=== PATIENT | male | born 1955 | race Caucasian/White ===

== ENCOUNTER 2022-03-20 13:46 | Inpatient (IN) | payer MEDICARE ==
[2022-03-20] MEDS ORDERED: SODIUM CHLORIDE 0.9% 1,000 ML IV ONE (13:50)
[2022-03-20] MEDS ORDERED: NOREPINEPHRINE 4 MG in SODIUM CHLORIDE 0.9% 250 ML IV ONE (13:52)
[2022-03-20] MEDS ORDERED: fentaNYL (PF) 50 MCG/ML 2 ML AMP ONE (14:00)
[2022-03-20] MEDS ORDERED: HEPARIN SODIUM 1,000 UN/ML (10ML VL) ONE ×2 (14:00→15:48)
[2022-03-20] MEDS ORDERED: LIDOCAINE 1% INJ 10MG/ML (30 ML VIAL-PF) SQ ONE (14:03)
[2022-03-20] MEDS ORDERED: TICAGRELOR 90 MG TAB ONE (14:12)
[2022-03-20] MEDS: HEPARIN SODIUM 1,000 UN/ML (10ML VL) IV ONE ×3 (14:12→15:39)
[2022-03-20] MEDS ORDERED: TICAGRELOR 90 MG TAB PO ONE (14:13)
[2022-03-20] MEDS ORDERED: ETOMIDATE 2 MG/ML 10 ML VIAL ONE (14:21)
--- NOTE | 2022-03-20 14:29 | P.CRDCN ---
History of Present Illness History of present illness: HISTORY OF PRESENTING ILLNESS This is a pleasant 66-year-old male past medical history of hypertension, hyperlipidemia, diabetes. No known past cardiac history. Patient was brought to the hospital via EMS for complaints of weakness and chest pain. Initial EKG concerning for STEMI and patient was brought to the ER. Initial EKG revealed sinus rhythm HR 78, right bundle branch block, ST elevation in lead V3-V5, ST depression inferiorly Repeat EKG timed 10 minutes later with improved ST e levation in the anterior leads. Patient by-passed the ER on this evaluation and was taken directly to the label fuser tender and was unable to evaluate patient. Patient was seen being prepped in the label fuser tender. He is awake, alert and oriented. He is hypotensive, Levo was started. No labs to review. Patient did state he took his lisinopril this morning, but not another medication. REVIEW OF SYSTEMS At the time of my exam: Unable to perform thorough review of systems secondary to patient taken to label fuser tender. CARDIOVASCULAR: +Chest pain, +shortness of breath, PHYSICAL EXAMINATION: Unable to perform thorough physical exam secondary to patient taken to label fuser tender. ASSESSMENT STEMI Cardiogenic shock Hypotension History of hypertension History of hyperlipidemia History of diabetes mellitus PLAN Patient immediately taken to label fuser tender from ER Plan for cardiac catheterization Further recommendations to follow Nurse practitioner note has been reviewed by physician. Signing provider agrees with the documented findings, assessment, and plan of care. Medications and Allergies Home Medications Medication Instructions Recorded Confirmed Type Aspirin EC [Ecotrin Low Dose] 81 mg PO W/SUPPER 03/20/22 03/20/22 History Cholecalciferol [Vitamin D3 (25 50 mcg PO W/BRKFST 03/20/22 03/20/22 History Mcg = 1000 Iu)] Esomeprazole Magnesium [NexIUM 20 mg PO W/BRKFST 03/20/22 03/20/22 History 24Hr] Metoprolol Succinate [Toprol XL] 50 mg PO W/BRKFST 03/20/22 03/20/22 History Multivitamins, Thera [Multivitamin 1 tab PO W/SUPPER 03/20/22 03/20/22 History (formulary)] NIFEdipine [NIFEdipine ER] 30 mg PO W/BRKFST 03/20/22 03/20/22 History Rosuvastatin Calcium [Crestor] 40 mg PO W/SUPPER 03/20/22 03/20/22 History lisinopriL [Prinivil] 20 mg PO BID-W/MEALS 03/20/22 03/20/22 History metFORMIN HCL [Glucophage] 500 mg PO W/BRKFST 03/20/22 03/20/22 History Allergies Allergy/AdvReac Type Severity Reaction Status Date / Time No Known Allergies Allergy Verified 03/20/22 14:47 Results 03/21/22 04:46 03/21/22 08:25
[2022-03-20] MEDS ORDERED: MIDAZOLAM 2 MG/2 ML VIAL IVP ONE (14:45)
[2022-03-20] MEDS ORDERED: IOPAMIDOL-370 125ML BTL INJ ONE ×2 (14:52→16:01)
[2022-03-20 15:06] LABS: Allen Test Performed? Yes
[2022-03-20 15:09] LABS: ABG Base Excess -10.2 mmol/L; ABG HCO3 19 mmol/L (21-25); ABG Oxygen Saturation 78.1 % (94-97); ABG PCO2 57 mmHg (35-45); ABG TCO2 21 mmol/L (19-24)
[2022-03-20 15:16] LABS: ABG PH 7.13 (7.35-7.45)
[2022-03-20 15:17] LABS: ABG PO2 57 mmHg (83-108)
[2022-03-20] MEDS ORDERED: IOPAMIDOL-370 100ML BTL INJ ONE (15:32)
[2022-03-20] MEDS ORDERED: HEPARIN SODIUM 1,000 UN/ML (10ML VL) IV ONE (15:50)
[2022-03-20 15:58] LABS: Basophils # (A) 0.1 k/uL (0-0.2); Basophils % (A) 0 %; Eosinophils # (A) 0.1 k/uL (0-0.7); Eosinophils % (A) 1 %; HGB 15.2 gm/dL (13.0-17.5); Lymphocytes # (A) 1.5 k/uL (1.0-4.8); Lymphocytes % (A) 7 %; MCH 32.4 pg (25.0-35.0); MCHC 33.8 g/dL (31.0-37.0); MCV 95.8 fL (80.0-100.0); Mean Platelet Volume 7.3; Monocytes # (A) 0.4 k/uL (0-1.0); Monocytes % (A) 2 %; Neutrophils # (A) 18.4 k/uL (1.3-7.7); Neutrophils % (A) 90 %; Platelet Count 299 k/uL (150-450); RDW 13.3 % (11.5-15.5); WBC 20.4 k/uL (3.8-10.6)
[2022-03-20] MEDS ORDERED: RX INFO: IV CONTRAST WAS GIVEN 1 EACH MISC MISCELLANE PRN (16:50)
[2022-03-20] MEDS ORDERED: ATROPINE SULFATE 0.1 MG/ML 10ML SYRINGE IV PRN (16:50)
[2022-03-20] MEDS ORDERED: ZOLPIDEM 5 MG TAB PO PRN (16:50)
[2022-03-20] MEDS ORDERED: NITROGLYCERIN SL TABS 0.4 MG TAB SUBLINGUAL PRN (16:50)
[2022-03-20] MEDS ORDERED: MAG HYDROX/AL HYDROX/SIMETH 30 ML CUP PO PRN (16:50)
[2022-03-20 16:52] LABS: Glucose,Whole Blood 179 mg/dL (70-110)
[2022-03-20] MEDS ORDERED: SODIUM CHLORIDE 0.9% 1,000 ML in EMPTY BAG 1 BAG IV SCH (17:00)
[2022-03-20] MEDS: NOREPINEPHRINE 4 MG in SODIUM CHLORIDE 0.9% 250 ML IV SCH ×2 (17:00→18:18)
[2022-03-20] MEDS ORDERED: HEPARIN SODIUM 1,000 UN/ML (10ML VL) IV PRN (17:01)
[2022-03-20] MEDS ORDERED: HEPARIN SOD,PORK IN 0.45% NACL 25,000 UNIT in 0.45% NACL 1 250ML.BAG IV SCH (18:00)
[2022-03-20 18:03] LABS: ABG Base Excess -7.3 mmol/L; ABG HCO3 19 mmol/L (21-25); ABG Oxygen Saturation 98.8 % (94-97); ABG PCO2 35 mmHg (35-45); ABG PH 7.33 (7.35-7.45); ABG PO2 126 mmHg (83-108); ABG TCO2 20 mmol/L (19-24); Allen Test Performed? Yes
--- NOTE | 2022-03-20 18:05 | XR ---
EXAMINATION: XR chest 1V portable DATE AND TIME: 03/20/2022 5:35 PM CLINICAL INDICATION: Tube placement TECHNIQUE: AP portable supine COMPARISON: None FINDINGS: ET tube tip superimposed over the trachea at the level of the inferior margin of the sterno clavicular joints. Catheter noted superimposed over the aorta and heart. EKG leads. Right hemithorax: There is diffuse added opacity over the right upper and midlung zones with relative sparing of the right lower lobe. The right pleural space appears negative on this supine radiograph. Left hemithorax: There is relatively mild left perihilar added opacity. The left upper and mid and lo wer lung zones appear to be otherwise clear. The left pleural space appears negative on this supine r adiograph. The ascending is midline. The cardiac silhouette is not enlarged. The remainder of the mediastinal si lhouette is unremarkable. The skeletal structures and soft tissues are negative for acute findings. IMPRESSION: Right upper and mid lung zone airspace filling process, with mild left perihilar added opacity seen a s well.
[2022-03-20 18:11] LABS: Basophils % (A) 0 %; Eosinophils # (A) 0.1 k/uL (0-0.7); Eosinophils % (A) 1 %; HCT 47.2 % (39.0-53.0); HGB 16.1 gm/dL (13.0-17.5); Lymphocytes # (A) 1.1 k/uL (1.0-4.8); Lymphocytes % (A) 14 %; MCH 32.5 pg (25.0-35.0); MCHC 34.1 g/dL (31.0-37.0); MCV 95.3 fL (80.0-100.0); Mean Platelet Volume 7.1; Monocytes # (A) 0.1 k/uL (0-1.0); Monocytes % (A) 2 %; Neutrophils # (A) 6.8 k/uL (1.3-7.7); Neutrophils % (A) 83 %; Platelet Count 303 k/uL (150-450); RBC 4.95 m/uL (4.30-5.90); RDW 13.4 % (11.5-15.5); WBC 8.1 k/uL (3.8-10.6)
[2022-03-20] MEDS ORDERED: CISATRACURIUM 2 MG/ML 5 ML VIAL IV ONE (18:45)
[2022-03-20 18:54] LABS: Partial Thromboplastin Time 102.6 sec (22.0-30.0)
[2022-03-20] MEDS: HEPARIN SODIUM,PORCINE 12,500 UNIT in DEXTROSE 5% IN WATER 500 ML IV SCH ×2 (18:58)
[2022-03-20] MEDS ORDERED: HYDROmorphone 1 MG/ML 1 ML SYRINGE IVP PRN (18:59)
[2022-03-20] MEDS ORDERED: HYDROmorphone 1 MG/ML 1 ML SYRINGE IVP SCH (19:00)
[2022-03-20] MEDS: CISATRACURIUM 200 MG in SODIUM CHLORIDE 0.9% 180 ML IV SCH (19:30)
[2022-03-20 20:39] LABS: ABG Base Excess -15.6 mmol/L; ABG HCO3 12 mmol/L (21-25); ABG Oxygen Saturation 95.2 % (94-97); ABG PCO2 28 mmHg (35-45); ABG PH 7.23 (7.35-7.45); ABG PO2 84 mmHg (83-108); ABG TCO2 13 mmol/L (19-24); Allen Test Performed? Yes
[2022-03-20 20:46] LABS: Albumin 2.6 g/dL (3.5-5.0); Calcium 6.9 mg/dL (8.4-10.2); Magnesium 1.6 mg/dL (1.6-2.3); Potassium 5.1 mmol/L (3.5-5.1); Total Bilirubin 1.2 mg/dL (0.2-1.3); Total Protein 5.1 g/dL (6.3-8.2)
[2022-03-20] MEDS: DEXTROSE 5% IN WATER 1,000 ML with SODIUM BICARB (1 MEQ/ML) 100 ML IV SCH (21:19)
[2022-03-20] MEDS: ARTIFICIAL TEARS-HYPROMELLOSE DROPS 15 ML BTL BOTH EYES SCH (22:01)
[2022-03-20] MEDS: FUROSEMIDE 10 MG/ML 2 ML VIAL IV SCH (22:02)
[2022-03-20] MEDS: TICAGRELOR 90 MG TAB PO SCH (22:02)
[2022-03-20] MEDS: CHLORHEXIDINE GLUCONATE 15 ML CUP MUCOUS MEM SCH (22:02)
[2022-03-20] MEDS: ATORVASTATIN 80 MG TAB PO SCH (22:02)
[2022-03-20 22:17] LABS: HCT 41.8 % (39.0-53.0); HGB 13.6 gm/dL (13.0-17.5); MCH 31.4 pg (25.0-35.0); MCHC 32.6 g/dL (31.0-37.0); MCV 96.3 fL (80.0-100.0); Mean Platelet Volume 7.9; Platelet Count 286 k/uL (150-450); RBC 4.35 m/uL (4.30-5.90); RDW 13.1 % (11.5-15.5); WBC 12.9 k/uL (3.8-10.6)
[2022-03-20] MEDS ORDERED: DOBUTamine DRIP 500 MG in DEXTROSE/WATER 1 250ML.BAG IV SCH (22:30)
[2022-03-20] MEDS ORDERED: SODIUM CHLORIDE 0.9% 500 ML 500 ML IV ONE (22:48)
[2022-03-21] MEDS: ARTIFICIAL TEARS-HYPROMELLOSE DROPS 15 ML BTL BOTH EYES SCH ×6 (00:35→20:51)
[2022-03-21] MEDS: NOREPINEPHRINE 4 MG in SODIUM CHLORIDE 0.9% 250 ML IV SCH ×2 (05:00→08:46)
[2022-03-21 05:20] LABS: Calcium 7.4 mg/dL (8.4-10.2); Potassium 4.5 mmol/L (3.5-5.1)
[2022-03-21 05:52] LABS: ABG Base Excess -3.9 mmol/L; ABG HCO3 22 mmol/L (21-25); ABG Oxygen Saturation 97.7 % (94-97); ABG PCO2 39 mmHg (35-45); ABG PH 7.35 (7.35-7.45); ABG PO2 94 mmHg (83-108); ABG TCO2 23 mmol/L (19-24); Allen Test Performed? Yes
[2022-03-21 05:54] LABS: Basophils % (A) 0 %; Eosinophils % (A) 0 %; HCT 43.5 % (39.0-53.0); HGB 13.9 gm/dL (13.0-17.5); Lymphocytes # (A) 0.9 k/uL (1.0-4.8); Lymphocytes % (A) 5 %; MCH 30.9 pg (25.0-35.0); MCHC 32.1 g/dL (31.0-37.0); MCV 96.6 fL (80.0-100.0); Mean Platelet Volume 7.5; Monocytes # (A) 0.8 k/uL (0-1.0); Monocytes % (A) 4 %; Neutrophils # (A) 17.8 k/uL (1.3-7.7); Neutrophils % (A) 91 %; Platelet Count 246 k/uL (150-450); RBC 4.51 m/uL (4.30-5.90); RDW 13.3 % (11.5-15.5); WBC 19.5 k/uL (3.8-10.6)
--- NOTE | 2022-03-21 07:56 | XR ---
EXAMINATION TYPE: XR chest 1V portable DATE OF EXAM: 03/21/2022 COMPARISON: Chest x-ray 03/20/2022 HISTORY: Left ventricular assist device placement, intubated TECHNIQUE: Single frontal view of the chest is obtained. FINDINGS: Endotracheal tube and NG tube are overlying appropriate positions. Left ventricular assist device is in a stable position. There is no evident pneumothorax or pleural effusion. Bilateral grou ndglass opacity persists but may be improved in the interval. There are overlying artifacts present. Cardiac mediastinal silhouette shows a similar appearance. The aorta is dense. IMPRESSION: Pulmonary edema may be improved.
[2022-03-21] MEDS ORDERED: IPRATROPIUM-ALBUTEROL 3 ML NEB INHALATION PRN (08:37)
[2022-03-21] MEDS: TICAGRELOR 90 MG TAB PO SCH ×2 (08:49→20:53)
[2022-03-21] MEDS: FUROSEMIDE 10 MG/ML 2 ML VIAL IV SCH (08:49)
[2022-03-21] MEDS: CHLORHEXIDINE GLUCONATE 15 ML CUP MUCOUS MEM SCH ×2 (08:49→20:51)
[2022-03-21] MEDS ORDERED: ASPIRIN 81 MG PO SCH (09:00)
[2022-03-21 09:13] LABS: Magnesium 1.6 mg/dL (1.6-2.3)
[2022-03-21 09:23] VITALS: RESP 20
[2022-03-21] MEDS ORDERED: Magnesium Replacement Protocol 1 EACH MISC MISCELLANE PRN (09:25)
--- NOTE | 2022-03-21 09:26 | XR ---
EXAMINATION TYPE: XR chest 1V DATE OF EXAM: 03/21/2022 COMPARISON: 03/21/2022 INDICATION: Line placement TECHNIQUE: Single frontal view of the chest is obtained. FINDINGS: The heart size is normal. The pulmonary vasculature is indistinct. Mild diffuse increased lung markings are present bilaterally. This is nonspecific. Consider pulmonary edema in the differential. Endotracheal tube tip is above the rikki. Nasogastric tube transverse the thorax. Left central venou s catheter is in place tip in the superior vena cava region. No large pneumothorax is evident. Pneumo thorax evaluation however is limited supine view. IMPRESSION: 1. Diffuse increased lung markings. Differential includes infectious etiology or pulmonary edema. Fol low-up is recommended. 2. Multiple lines and catheters discussed above. 3. Please minimal left central venous catheter. No pneumothorax on the limited position chest x-ray
[2022-03-21] MEDS: MAGNESIUM SULFATE-D5W PMX 1 GM in DEXTROSE/WATER 1 100ML.BAG IVPB SCH ×2 (10:00→11:23)
--- NOTE | 2022-03-21 10:21 | P.CNPUL ---
History of Present Illness Consult date: 03/21/22 Requesting physician: Arlette Pool Reason for consult: other (Ventilator/critical care management) Chief complaint: Chest pain and weakness History of present illness: This is a 66-year-old male patient with a history of hypertension, hyperlipidemia, diabetes mellitus, gastroesophageal reflux disease. He presented to the hospital yesterday via EMS with complaints of chest pain and weakness and was found to be in cardiogenic shock secondary to a ST segment elevation myocardial infarction. He was taken immediately to the [facility] he received 3 stents to the LAD and required Impala placement and intubation mechanical ventilatory support and transferred to the ICU for the same. His current vent settings are assist-control mode with a rate of 20, tidal volume 400, FiO2 50% and a PEEP of 10. Morning blood gases reveal a P O2 of 94, pCO2 39, pH 7.35. He is requiring norepinephrine at 11 mcg/m, dobutamine at 2.5 mcg/kg/m, Nimbex at 2 mg/kg/m, propofol 50 mcg/kg/m. He is on a heparin drip per weight-based protocol. He is on D5W with 2 A of sodium bicarb at 75 ML's per hour. Current blood pressure 107/76 with a mean of 84. Heart rate 114. Left radial arterial line in place. Impella flow at 2.2 L currently. White count 19.5. Hemoglobin 13.9. Platelets 246. Sodium 131. Potassium 4.5. Bicarb 19. BUN 21. Creatinine 1.26. Troponin 118. Echocardiogram pending. Chest x-ray reveals evidence of pulmonary edema. He is on DuoNeb inhalations. Continued on Brilinta and aspirin. Review of Systems ROS unobtainable: due to endotracheal tube Medications and Allergies Home Medications Medication Instructions Recorded Confirmed Type Aspirin EC [Ecotrin Low Dose] 81 mg PO W/SUPPER 03/20/22 03/20/22 History Cholecalciferol [Vitamin D3 (25 50 mcg PO W/BRKFST 03/20/22 03/20/22 History Mcg = 1000 Iu)] Esomeprazole Magnesium [NexIUM 20 mg PO W/BRKFST 03/20/22 03/20/22 History 24Hr] Metoprolol Succinate [Toprol XL] 50 mg PO W/BRKFST 03/20/22 03/20/22 History Multivitamins, Thera [Multivitamin 1 tab PO W/SUPPER 03/20/22 03/20/22 History (formulary)] NIFEdipine [NIFEdipine ER] 30 mg PO W/BRKFST 03/20/22 03/20/22 History Rosuvastatin Calcium [Crestor] 40 mg PO W/SUPPER 03/20/22 03/20/22 History lisinopriL [Prinivil] 20 mg PO BID-W/MEALS 03/20/22 03/20/22 History metFORMIN HCL [Glucophage] 500 mg PO W/BRKFST 03/20/22 03/20/22 History Allergies Allergy/AdvReac Type Severity Reaction Status Date / Time No Known Allergies Allergy Verified 03/20/22 14:47 Physical Exam Vitals: Vital Signs Temp Pulse Resp BP Pulse Ox FiO2 03/21/22 09:15 114 H 20 107/76 99 03/21/22 09:00 112 H 20 100/70 98 03/21/22 08:45 110 H 20 100/70 98 03/21/22 08:30 106 H 20 100/70 98 03/21/22 08:15 105 H 20 100/70 98 03/21/22 08:00 98.5 F 103 H 29 H 96/68 98 03/21/22 07:53 50 03/21/22 07:45 101 H 29 H 96/68 98 03/21/22 07:35 50 03/21/22 07:30 101 H 29 H 96/68 96 03/21/22 07:15 95 25 H 96/68 95 03/21/22 07:00 91 20 94 L 03/21/22 06:45 98 20 95 03/21/22 06:30 92 20 93 L 03/21/22 06:15 94 20 95/67 94 L 03/21/22 06:00 91 20 95 03/21/22 05:45 94 20 94 L 03/21/22 05:30 89 20 93 L 03/21/22 05:15 87 20 92 L 03/21/22 05:00 85 20 94 L 03/21/22 04:45 85 20 96 03/21/22 04:30 89 20 94 L 03/21/22 04:15 91 20 96/68 95 03/21/22 04:00 98.3 F 86 20 97 50 03/21/22 03:52 50 03/21/22 03:45 87 20 96 03/21/22 03:30 87 20 94 L 03/21/22 03:15 85 20 106/73 93 L 03/21/22 03:00 85 20 93 L 03/21/22 02:45 84 20 92 L 03/21/22 02:30 85 20 97 03/21/22 02:15 87 20 99/68 97 03/21/22 02:00 92 20 104/74 98 03/21/22 01:45 93 20 98 60 03/21/22 01:30 93 20 98 03/21/22 01:15 94 20 104/74 98 03/21/22 01:00 94 20 98 60 03/21/22 00:45 94 20 99 03/21/22 00:30 94 20 98 03/21/22 00:15 94 20 99 03/21/22 00:00 97.7 F 93 20 112/72 99 80 03/20/22 23:45 89 20 99 03/20/22 23:30 83 20 99 03/20/22 23:21 80 03/20/22 23:15 79 20 95 03/20/22 23:03 67 20 95 03/20/22 23:00 73 20 117/86 95 90 03/20/22 22:45 61 20 96 03/20/22 22:30 60 20 96 03/20/22 22:15 59 L 20 96 03/20/22 22:00 58 L 20 79/61 96 03/20/22 21:45 58 L 20 79/61 87 L 03/20/22 21:30 57 L 20 79/61 85 L 03/20/22 21:15 57 L 20 79/61 03/20/22 21:00 56 L 20 88/75 79 L 03/20/22 20:45 56 L 20 88/75 84 L 100 03/20/22 20:44 100 03/20/22 20:30 57 L 19 93 L 03/20/22 20:26 100 03/20/22 20:15 56 L 20 88/75 96 03/20/22 20:00 55 L 20 72/51 93 L 100 03/20/22 19:45 56 L 20 72/51 93 L 03/20/22 19:30 56 L 20 72/51 95 03/20/22 19:15 58 L 20 72/51 95 03/20/22 19:00 57 L 31 H 76/44 92 L 03/20/22 18:45 58 L 36 H 76/44 03/20/22 18:30 58 L 47 H 76/44 96 03/20/22 18:15 56 L 23 76/44 92 L 03/20/22 18:12 100 03/20/22 18:00 56 L 20 106/80 96 03/20/22 17:45 56 L 28 H 98/62 96 03/20/22 17:30 60 36 H 101/69 97 03/20/22 17:15 59 L 34 H 94/72 98 03/20/22 17:00 98.1 F 60 33 H 99/76 98 03/20/22 16:50 100 03/20/22 16:47 100 03/20/22 15:33 100 03/20/22 14:00 100 Intake and Output 03/20/22 03/21/22 03/21/22 22:59 06:59 14:59 Intake Total 848.191 971.889 588.869 Output Total 620 1325 355 Balance 228.191 -353.111 233.869 Intake: IV 625 600 300 Dextrose 5% in Water 1, 150 600 300 000 ml @ 75 mls/hr IV . [id number] [facility] with Sodium Bicarb (1 Meq/ml) 100 ml Rx#:[id number] Sodium Chloride 0.9% 1, 225 000 ml @ 0 mls/hr IV .STK -MED ONE Rx#:[id number] Sodium Chloride 0.9% 500 250 ml 500 ml @ 999 mls/hr IV .Q31M ONE Rx#:[id number] Intake, IV Titration 223.191 371.889 288.869 Amount Cisatracurium 200 mg In 65.412 Sodium Chloride 0.9% 180 ml @ 1 MCG/KG/MIN 5.117 mls/hr IV .Q24H [facility] Rx#: [id number] Heparin Sod,Pork in 0.45% 39.083 54.52 NaCl 25,000 unit In 0.45 % NaCl 1 250ml.bag @ Per Protocol IV .Q0M [facility] Rx#: [id number] Norepinephrine 4 mg In 123.191 135.591 73.427 Sodium Chloride 0.9% 250 ml @ 0.05 MCG/KG/MIN 16. 245 mls/hr IV .[id number] [facility] Rx#:[id number] propofoL 1,000 mg In 100 197.215 95.51 Empty Bag 1 bag @ 50 MCG/ KG/MIN 25.583 mls/hr IV . Q3H55M [facility] Rx#:[id number] Output: Gastric Drainage 400 Urine 620 925 355 Other: Voiding Method Indwelling Catheter Indwelling Catheter Weight 91 kg ABP, PAP, CO, CI - Last 8 Hours Arterial Blood Pressure 106/70 Arterial Blood Pressure 104/71 Arterial Blood Pressure 106/68 Arterial Blood Pressure 102/66 Arterial Blood Pressure 89/62 Arterial Blood Pressure 88/62 Arterial Blood Pressure 95/66 Arterial Blood Pressure 91/61 Arterial Blood Pressure 86/58 Arterial Blood Pressure 89/61 Arterial Blood Pressure 84/57 Arterial Blood Pressure 88/59 Arterial Blood Pressure 87/58 Arterial Blood Pressure 96/63 Arterial Blood Pressure 95/62 Arterial Blood Pressure 91/60 Arterial Blood Pressure 87/58 Arterial Blood Pressure 85/58 Arterial Blood Pressure 83/58 Arterial Blood Pressure 95/62 Arterial Blood Pressure 91/60 Arterial Blood Pressure 100/65 Arterial Blood Pressure 106/68 Arterial Blood Pressure 104/66 Arterial Blood Pressure 107/67 Arterial Blood Pressure 102/63 Arterial Blood Pressure 120/82 Arterial Blood Pressure 87/61 GENERAL EXAM: Intubated, paralyzed, 66-year-old male patient. HEAD: Normocephalic. EYES: Normal reaction of pupils, equal size. NOSE: Clear with pink turbinates. THROAT: Oral endotracheal and gastric tube secured in place. No erythema or exudates. NECK: Left IJ catheter in place. No masses, no JVD. CHEST: No chest wall deformity. LUNGS: Equal air entry with bilateral crackles. CVS: S1 and S2 normal with no audible murmur, regular rhythm. ABDOMEN: No hepatosplenomegaly, normal bowel sounds, no guarding or rigidity. SPINE: No scoliosis or deformity SKIN: No rashes CENTRAL NERVOUS SYSTEM: Sedated, paralyzed, tone is normal in all 4 extremities. EXTREMITIES: Impella and groin catheters in place. Left radial arterial line in place. There is no peripheral edema. No clubbing, no cyanosis. Peripheral pulses are faint but intact. Results - Laboratory Findings CBC and BMP: 03/21/22 04:46 03/21/22 08:25 ABG ABG pH 7.35 (7.35-7.45) 03/21/22 05:47 ABG pCO2 39 mmHg (35-45) 03/21/22 05:47 ABG pO2 94 mmHg (83-108) 03/21/22 05:47 ABG O2 Saturation 97.7 % (94-97) H 03/21/22 05:47 Abnormal lab findings: Abnormal Labs 03/20/22 03/20/22 03/20/22 14:55 15:50 16:50 WBC 20.4 H Neutrophils # 18.4 H Lymphocytes # APTT ABG pH 7.13 L* ABG pCO2 57 H ABG pO2 57 L* ABG HCO3 19 L ABG Total CO2 ABG O2 Saturation 78.1 L Sodium Carbon Dioxide BUN Creatinine Glucose POC Glucose (mg/dL) 179 H Calcium AST ALT Total Protein Albumin 03/20/22 03/20/22 03/20/22 17:56 18:07 20:08 WBC 12.9 H Neutrophils # Lymphocytes # APTT 102.6 H* ABG pH 7.33 L ABG pCO2 ABG pO2 126 H ABG HCO3 19 L ABG Total CO2 ABG O2 Saturation 98.8 H Sodium Carbon Dioxide BUN Creatinine Glucose POC Glucose (mg/dL) Calcium AST ALT Total Protein Albumin 03/20/22 03/20/22 03/20/22 20:12 20:19 20:36 WBC Neutrophils # Lymphocytes # APTT 50.4 H ABG pH 7.23 L ABG pCO2 28 L ABG pO2 ABG HCO3 12 L ABG Total CO2 13 L ABG O2 Saturation Sodium 132 L Carbon Dioxide 18 L BUN Creatinine Glucose 128 H POC Glucose (mg/dL) Calcium 6.9 L AST 672 H ALT 76 H Total Protein 5.1 L Albumin 2.6 L 03/21/22 03/21/22 03/21/22 00:00 04:46 04:46 WBC 19.5 H Neutrophils # 17.8 H Lymphocytes # 0.9 L APTT 76.8 H ABG pH ABG pCO2 ABG pO2 ABG HCO3 ABG Total CO2 ABG O2 Saturation Sodium 131 L Carbon Dioxide 19 L BUN 21 H Creatinine 1.26 H Glucose 239 H POC Glucose (mg/dL) Calcium 7.4 L AST ALT Total Protein Albumin 03/21/22 03/21/22 05:47 08:25 WBC Neutrophils # Lymphocytes # APTT 131.5 H* ABG pH ABG pCO2 ABG pO2 ABG HCO3 ABG Total CO2 ABG O2 Saturation 97.7 H Sodium Carbon Dioxide BUN Creatinine Glucose POC Glucose (mg/dL) Calcium AST ALT Total Protein Albumin - Diagnostic Findings Chest x-ray: image reviewed Assessment and Plan Assessment: Acute ST segment elevation myocardial infarction with significant coronary arter y disease, stent placement 3 to the LAD 03/20/2022 Acute cardiogenic shock secondary to above requiring intubation mechanical ventilation and Impella placement Leukocytosis suspect secondary to above Transaminitis secondary to above Diabetes mellitus Hyperlipidemia History of hypertension Plan: The patient was seen and evaluated Chest x-ray, ABGs, labs and medications reviewed Decrease FiO2 to 40% Left IJ triple lumen catheter placed Impella remains in place Patient's overall condition is quite critical Plan is for transfer to a tertiary care center, possibly [facility] We will continue to follow and make further recommendations based on his clinical status I have personally seen and examined the patient, performed the documentation and the assessment and plan as written. Number of minutes spent on the visit: 20.
--- NOTE | 2022-03-21 10:25 | CA ---
Transthoracic Echo Report Name: Rad Lozano Age: 66 Gender: M : 1955 Exam Date: 03/21/2022 07:38 Exam Location: [facility] Ht (in): 60 Wt (lb): 188 Ordering Physician: Gema Meadows Attending/Referring Phys: Work Over Rig Operator Lorraine Salcedo RDCS Procedure CPT: Indications: stemi Cardiac Hx: Pt had impella placed 03/20/22: Technical Quality: Fair Contrast 1: Total Dose (mL): Contrast 2: Total Dose (mL): MEASUREMENTS (Male / Female) Normal Values DOPPLER MV Area PHT 3.7 cm??? Mitral E Point Velocity 56.6 cm/s Mitral A Point Velocity 53.3 cm/s Mitral E to A Ratio 1.1 MV Deceleration Time 204.8 ms FINDINGS Left Ventricle Left ventricular ejection fraction is estimated at 50-55 %. Right Ventricle Right Atrium Left Atrium Mitral Valve Aortic Valve Tricuspid Valve Pulmonic Valve Pericardium Anterior moderate pericardial effusion. Aorta CONCLUSIONS 1. Left ventricle systolic function borderline normal, improved since March 20 2. A catheter is noted in the left ventricle, position could not be well assessed 3. Moderate anterior pericardial effusion with no evidence of temponade Previewed by: Dr. Arlette Pool MD (Electronically Signed) Final Date: 21 March 2022 10:25
[2022-03-21] MEDS: NOREPINEPHRINE 32 MG in SODIUM CHLORIDE 0.9% 218 ML IV SCH ×2 (10:47→19:10)
--- NOTE | 2022-03-21 10:57 | PCN ---
PROCEDURE NOTE PROCEDURE: Left internal jugular triple-lumen catheter. PREOPERATIVE DIAGNOSIS: Cardiogenic shock, administration of fluids and pressors, hypotension. POSTOPERATIVE DIAGNOSIS: Cardiogenic shock, administration of fluids and pressors, hypotension. OPERATORS: 1. Dr. Bazzi. 2. Dr. Coto. TRIPLE LUMEN CATHETER PLACEMENT: Indication: Hemodynamic monitoring/Intravenous access. A time-out was completed verifying correct patient, procedure, site, positioning, and implant(s) or special equipment if applicable. The patient was placed in a dependent position appropriate for triple lumen catheter placement based on the vein to be cannulated. The patient's left neck was prepped and draped in sterile fashion. 1% lidocaine was used to anesthetize the surrounding skin area. A triple lumen 9F Cordis catheter was introduced into the left internal jugular vein using Seldinger technique. The catheter was threaded smoothly over the guide wire and appropriate blood return was obtained. Each lumen of the catheter was evacuated of air and flushed with sterile saline. The catheter was then sutured in place to the skin and a sterile dressing applied. Perfusion to the extremity distal to the point of catheter insertion was checked and found to be adequate. There was informed consent and universal timeout. We used the left internal jugular site. There was good blood return from all 3 ports. The patient tolerated the procedure well. The catheter was sutured in place. Sterile dressing was applied by the nurse. The tip of the catheter was seen in the area of the right atrium and superior vena cava junction. There was no immediate complication. Chest x-ray was ordered. MMODL / IJN: [id number] /
--- NOTE | 2022-03-21 11:04 | P.PN ---
Subjective Patient remains intubated This morning His heart rate was around 100 beats a minute When I reexamined him to us later he was in sinus tachycardia at around 120 beats a minute His blood pressure has been in the 80s to 90s on dobutamine and norepinephrine He has an Impella device Breath sounds are reduced bilaterally No murmurs Improved LV function since yesterday Small pericardial effusion Good urine output Impression Patient presented with cardiogenic shock and acute myocardial infarction. Systolic blood pressure yesterday upon arrival to the [facility] was 90 mmHg EMT were asked by ED to bring him directly to the [facility]. Prior to arrival in the [facility] he was treated by EMT with 325 mg of aspirin and 250 mL of saline along with several EKGs Coronary angiography revealed severe triple-vessel coronary artery disease Twelve-lead EKG showed ST depressions V4 through V6 LAD was stented successfully Urgent impeller implant Urgent intubation, possible aspiration Yesterday his LV function was severely reduced 92 days and function looks better on dobutamine and with the impeller device Urine output is adequate He developed sinus tachycardia late this morning and I backed off on the dose of dobutamine Recommend Discussed with Dr. Pool We would recommend transfer to a tertiary care facility with availability of an LVAD if needed once the impeller is removed or needs to be removed I reviewed his stress test records from October of this year LV function was normal in October 2021 Report states, Perfusion scan did not show any evidence for ischemia Objective - Vital Signs Vital signs: Vital Signs Temp 98.5 F 03/21/22 08:00 Pulse 137 H 03/21/22 10:45 Resp 20 03/21/22 10:45 BP 107/76 03/21/22 09:15 Pulse Ox 96 03/21/22 10:45 FiO2 50 03/21/22 10:28 Intake & Output 03/20/22 03/21/22 03/21/22 18:59 06:59 18:59 Intake Total 869 1595.080 829.011 Output Total 500 1445 735 Balance 369 150.080 94.011 Weight 85.275 kg 91 kg Intake: IV 869 1000 475 Dextrose 5% in Water 1, 750 375 000 ml @ 75 mls/hr IV . [id number] [facility] with Sodium Bicarb (1 Meq/ml) 100 ml Rx#:[id number] Magnesium Sulfate-D5w Pmx 100 1 gm In Dextrose/Water 1 100ml.bag @ 100 mls/hr IVPB Q1H [facility] Rx#: [id number] Sodium Chloride 0.9% 1, 225 000 ml @ 0 mls/hr IV .STK -MED ONE Rx#:[id number] Sodium Chloride 0.9% 500 250 ml 500 ml @ 999 mls/hr IV .Q31M ONE Rx#:[id number] Intake, IV Titration 595.080 354.011 Amount Cisatracurium 200 mg In 65.412 Sodium Chloride 0.9% 180 ml @ 1 MCG/KG/MIN 5.117 mls/hr IV .Q24H [facility] Rx#: [id number] Heparin Sod,Pork in 0.45% 39.083 54.52 NaCl 25,000 unit In 0.45 % NaCl 1 250ml.bag @ Per Protocol IV .Q0M [facility] Rx#: [id number] Norepinephrine 4 mg In 258.782 138.569 Sodium Chloride 0.9% 250 ml @ 0.05 MCG/KG/MIN 16. 245 mls/hr IV .[id number] [facility] Rx#:[id number] propofoL 1,000 mg In 297.215 95.51 Empty Bag 1 bag @ 50 MCG/ KG/MIN 25.583 mls/hr IV . Q3H55M [facility] Rx#:[id number] Output: Gastric Drainage 400 Urine 500 1045 735 Other: Voiding Method Indwelling Catheter Indwelling Catheter ABP, PAP, CO, CI - Last Documented Arterial Blood Pressure 118/77 - Labs CBC & Chem 7: 03/21/22 04:46 03/21/22 08:25 Labs: Abnormal Lab Results - Last 24 Hours (Table) 03/20/22 03/20/22 03/20/22 Range/Units 14:55 15:50 16:50 WBC 20.4 H (3.8-10.6) k/uL Neutrophils # 18.4 H (1.3-7.7) k/uL Lymphocytes # (1.0-4.8) k/uL APTT (22.0-30.0) sec ABG pH 7.13 L* (7.35-7.45) ABG pCO2 57 H (35-45) mmHg ABG pO2 57 L* (83-108) mmHg ABG HCO3 19 L (21-25) mmol/L ABG Total CO2 (19-24) mmol/L ABG O2 Saturation 78.1 L (94-97) % Sodium (137-145) mmol/L Carbon Dioxide (22-30) mmol/L BUN (9-20) mg/dL Creatinine (0.66-1.25) mg/dL Glucose (74-99) mg/dL POC Glucose (mg/dL) 179 H (70-110) mg/dL Calcium (8.4-10.2) mg/dL AST (17-59) U/L ALT (4-49) U/L Troponin I (0.000-0.034) ng/mL Total Protein (6.3-8.2) g/dL Albumin (3.5-5.0) g/dL 03/20/22 03/20/22 03/20/22 Range/Units 17:56 18:07 20:08 WBC 12.9 H (3.8-10.6) k/uL Neutrophils # (1.3-7.7) k/uL Lymphocytes # (1.0-4.8) k/uL APTT 102.6 H* (22.0-30.0) sec ABG pH 7.33 L (7.35-7.45) ABG pCO2 (35-45) mmHg ABG pO2 126 H (83-108) mmHg ABG HCO3 19 L (21-25) mmol/L ABG Total CO2 (19-24) mmol/L ABG O2 Saturation 98.8 H (94-97) % Sodium (137-145) mmol/L Carbon Dioxide (22-30) mmol/L BUN (9-20) mg/dL Creatinine (0.66-1.25) mg/dL Glucose (74-99) mg/dL POC Glucose (mg/dL) (70-110) mg/dL Calcium (8.4-10.2) mg/dL AST (17-59) U/L ALT (4-49) U/L Troponin I (0.000-0.034) ng/mL Total Protein (6.3-8.2) g/dL Albumin (3.5-5.0) g/dL 03/20/22 03/20/22 03/20/22 Range/Units 20:12 20:19 20:36 WBC (3.8-10.6) k/uL Neutrophils # (1.3-7.7) k/uL Lymphocytes # (1.0-4.8) k/uL APTT 50.4 H (22.0-30.0) sec ABG pH 7.23 L (7.35-7.45) ABG pCO2 28 L (35-45) mmHg ABG pO2 (83-108) mmHg ABG HCO3 12 L (21-25) mmol/L ABG Total CO2 13 L (19-24) mmol/L ABG O2 Saturation (94-97) % Sodium 132 L (137-145) mmol/L Carbon Dioxide 18 L (22-30) mmol/L BUN (9-20) mg/dL Creatinine (0.66-1.25) mg/dL Glucose 128 H (74-99) mg/dL POC Glucose (mg/dL) (70-110) mg/dL Calcium 6.9 L (8.4-10.2) mg/dL AST 672 H (17-59) U/L ALT 76 H (4-49) U/L Troponin I (0.000-0.034) ng/mL Total Protein 5.1 L (6.3-8.2) g/dL Albumin 2.6 L (3.5-5.0) g/dL 03/21/22 03/21/22 03/21/22 Range/Units 00:00 04:46 04:46 WBC 19.5 H (3.8-10.6) k/uL Neutrophils # 17.8 H (1.3-7.7) k/uL Lymphocytes # 0.9 L (1.0-4.8) k/uL APTT 76.8 H (22.0-30.0) sec ABG pH (7.35-7.45) ABG pCO2 (35-45) mmHg ABG pO2 (83-108) mmHg ABG HCO3 (21-25) mmol/L ABG Total CO2 (19-24) mmol/L ABG O2 Saturation (94-97) % Sodium 131 L (137-145) mmol/L Carbon Dioxide 19 L (22-30) mmol/L BUN 21 H (9-20) mg/dL Creatinine 1.26 H (0.66-1.25) mg/dL Glucose 239 H (74-99) mg/dL POC Glucose (mg/dL) (70-110) mg/dL Calcium 7.4 L (8.4-10.2) mg/dL AST (17-59) U/L ALT (4-49) U/L Troponin I (0.000-0.034) ng/mL Total Protein (6.3-8.2) g/dL Albumin (3.5-5.0) g/dL 03/21/22 03/21/22 03/21/22 Range/Units 05:47 08:25 08:25 WBC (3.8-10.6) k/uL Neutrophils # (1.3-7.7) k/uL Lymphocytes # (1.0-4.8) k/uL APTT 131.5 H* (22.0-30.0) sec ABG pH (7.35-7.45) ABG pCO2 (35-45) mmHg ABG pO2 (83-108) mmHg ABG HCO3 (21-25) mmol/L ABG Total CO2 (19-24) mmol/L ABG O2 Saturation 97.7 H (94-97) % Sodium (137-145) mmol/L Carbon Dioxide (22-30) mmol/L BUN (9-20) mg/dL Creatinine (0.66-1.25) mg/dL Glucose (74-99) mg/dL POC Glucose (mg/dL) (70-110) mg/dL Calcium (8.4-10.2) mg/dL AST (17-59) U/L ALT (4-49) U/L Troponin I 118.000 H* (0.000-0.034) ng/mL Total Protein (6.3-8.2) g/dL Albumin (3.5-5.0) g/dL
[2022-03-21] MEDS: DEXTROSE 5% IN WATER 1,000 ML with SODIUM BICARB (1 MEQ/ML) 100 ML IV SCH (11:35)
[2022-03-21 12:04] VITALS: BMI 28.8
[2022-03-21] MEDS: IPRATROPIUM-ALBUTEROL 3 ML NEB INHALATION SCH ×3 (12:11→19:49)
[2022-03-21 12:22] LABS: Chol/HDL Ratio 3.96 Ratio; LDL Cholesterol,Calculated 88.5 mg/dL (0.0-131.0)
--- NOTE | 2022-03-21 12:28 | CA ---
Transthoracic Echo Report Name: Rad Lozano Age: 66 Gender: M : 1955 Exam Date: 03/20/2022 18:22 Exam Location: [facility] Ht (in): 60 Wt (lb): 188 Ordering Physician: Arlette Pool MD ([id number]) Attending/Referring Phys: [facility] Nurse Practitioner Renay Ann RDCS Procedure CPT: Indications: Placement of Left Ventricular Assist Device Cardiac Hx: Technical Quality: Very technically difficult study Contrast 1: Lumason Total Dose (mL): 5 Contrast 2: Total Dose (mL): MEASUREMENTS (Male / Female) Normal Values 2D ECHO LV Diastolic Diameter PLAX 3.4 cm 4.2 - 5.9 / 3.9 - 5.3 cm LV Systolic Diameter PLAX 3.0 cm IVS Diastolic Thickness 1.4 cm 0.6 - 1.0 / 0.6 - 0.9 cm LVPW Diastolic Thickness 1.3 cm 0.6 - 1.0 / 0.6 - 0.9 cm LV Relative Wall Thickness 0.8 RV Internal Dim ED PLAX 2.7 cm LA Systolic Diameter LX 3.5 cm 3.0 - 4.0 / 2.7 - 3.8 cm DOPPLER TR Peak Velocity 240.5 cm/s TR Peak Gradient 23.1 mmHg Right Ventricular Systolic Press 28.1 mmHg FINDINGS Left Ventricle Left ventricular ejection fraction is estimated at 10-15 %. Small left ventricular cavity. Moderate concentric left ventricular hypertrophy. Impella device in place. Device not well visualized. Severe anteroapical hypokinesis Right Ventricle Right Atrium Left Atrium Mitral Valve Aortic Valve Tricuspid Valve Pulmonic Valve Pericardium Normal pericardium. No pericardial effusion. Aorta CONCLUSIONS 1. Technically difficult study 2. Severely impaired systolic function with segmental wall motion abnormality 3. Device noted in the left ventricle, not well visualized. Previewed by: Dr. Alrette Pool MD (Electronically Signed) Final Date: 21 March 2022 12:27
--- NOTE | 2022-03-21 12:36 | P.HPIM ---
History of Present Illness H&P Date: 03/21/22 Chief Complaint: Chest pain, weakness 66-year-old man with a history of hypertension, hyperlipidemia, diabetes with no known past cardiac history presented with chest pain and weakness. Patient was brought in by emergency medical services and was found to have STEMI in route, given 325 mg of aspirin and was subsequently taken straight through the ER today angiography suite. Patient was apparently awake and alert while in the [employer], but was hypotensive and in cardiogenic shock. He had a 3 L Impala placed, was started on Levophed, then underwent angiography which showed diffuse three- vessel disease including [employer] of the RCA, PLV, significant disease in the left ci rcumflex, critical disease in the LAD. Patient subsequently received 3 stents to the LAD, was intubated for airway protection as well as cardiogenic shock, then was transferred to the intensive care unit. Initial echocardiogram demonstrated an ejection fraction of 15%, repeat echocardiogram this morning demonstrated an ejection fraction of 55%, while patient is on dobutamine. Patient is on 0.11 of norepinephrine, 2.5 of dobutamine, Nimbex, 50 g of propofol. Intubated, volume control 450, FiO2 50%, PEEP 10, saturating well. Urine output is good on IV Lasix. Patient is afebrile, Heart rates are in the 120s, blood pressures are high 80s over high 40s, 93% on vent settings. CBC today demonstrates a leukocytosis 19.5. Chemistries show hyponatremia to 131, CO2 of 19, BUN 21, creatinine of 1.3, elevated glucose at 239, calcium of 7.4. Lipid panel shows an LDL of 80.5, HDL of 39.9. ABG on current vent settings demonstrated pH of 7.4, pCO2 of 39, pO2 of 94. Troponin today is 118. Chest x-ray today shows diffuse increased interstitial lung markings. Review of systems could not be completed due to patient's intubation and sedation Gen: Intubated, sedated Eyes: PERRL, no scleral injection or icterus HENT: normocephalic, atraumatic, good hearing acuity, moist mucous membranes Neck: no tracheal deviation, full range of motion Resp: Symmetric muscle expansion CVS: good distal perfusion x 4, no pitting edema GI: soft, NTTP, ND, no hepatosplenomegaly : no suprapubic tenderness, no CVAT, cadena catheter is present MSK: no clubbing, no cyanosis, no noted contractures of extremities Skin: no noted rashes, petechiae; temperature of skin is appropriate Labs and imaging as above Assessment/plan: Cardiogenic shock STEMI status post PCI -Admit patient to ICU, telemetry -Cardiology consult -Currently continues to require mechanical support -Continue norepinephrine, wean dobutamine as tolerated -Continue propofol, Nimbex -Continue aspirin, brillinta, heparin drip -Continue atorvastatin -Hold off on beta beni until out of cardiogenic shock -Hold home blood pressure medications -Patient is high risk for removal of mechanical support, therefore requesting transfer to [facility] for further evaluation and management. Hypertension Hyperlipidemia Diabetes type 2 -Home medications reviewed and reconciled, changes noted above Patient is full code Patient's on therapeutic anti-coagulation Past Medical History Past Medical History: Diabetes Mellitus, Hyperlipidemia, Hypertension History of Any Multi-Drug Resistant Organisms: None Reported Past Surgical History: No Surgical Hx Reported Past Anesthesia/Blood Transfusion Reactions: No Reported Reaction Past Psychological History: No Psychological Hx Reported Smoking Status: Never smoker Medications and Allergies Home Medications Medication Instructions Recorded Confirmed Type Aspirin EC [Ecotrin Low Dose] 81 mg PO W/SUPPER 03/20/22 03/20/22 History Cholecalciferol [Vitamin D3 (25 50 mcg PO W/BRKFST 03/20/22 03/20/22 History Mcg = 1000 Iu)] Esomeprazole Magnesium [NexIUM 20 mg PO W/BRKFST 03/20/22 03/20/22 History 24Hr] Metoprolol Succinate [Toprol XL] 50 mg PO W/BRKFST 03/20/22 03/20/22 History Multivitamins, Thera [Multivitamin 1 tab PO W/SUPPER 03/20/22 03/20/22 History (formulary)] NIFEdipine [NIFEdipine ER] 30 mg PO W/BRKFST 03/20/22 03/20/22 History Rosuvastatin Calcium [Crestor] 40 mg PO W/SUPPER 03/20/22 03/20/22 History lisinopriL [Prinivil] 20 mg PO BID-W/MEALS 03/20/22 03/20/22 History metFORMIN HCL [Glucophage] 500 mg PO W/BRKFST 03/20/22 03/20/22 History Allergies Allergy/AdvReac Type Severity Reaction Status Date / Time No Known Allergies Allergy Verified 03/20/22 14:47 Physical Exam Osteopathic Statement: *. No significant issues noted on an osteopathic structural exam other than those noted in the History and Physical/Consult. Vitals: Vital Signs Temp Pulse Resp BP Pulse Ox FiO2 03/21/22 12:21 125 H 03/21/22 12:11 125 H 03/21/22 12:00 50 03/21/22 11:30 134 H 20 93 L 03/21/22 11:15 138 H 20 101/80 94 L 03/21/22 11:00 135 H 20 95 03/21/22 10:45 137 H 20 96 03/21/22 10:30 124 H 20 95 03/21/22 10:28 50 03/21/22 10:15 125 H 20 96 03/21/22 10:00 122 H 20 96 03/21/22 09:45 121 H 20 96 03/21/22 09:30 115 H 20 97 03/21/22 09:15 114 H 20 107/76 99 03/21/22 09:00 112 H 20 100/70 98 03/21/22 08:45 110 H 20 100/70 98 03/21/22 08:30 106 H 20 100/70 98 03/21/22 08:15 105 H 20 100/70 98 03/21/22 08:00 98.5 F 103 H 29 H 96/68 98 03/21/22 07:53 50 03/21/22 07:45 101 H 29 H 96/68 98 03/21/22 07:35 50 03/21/22 07:30 101 H 29 H 96/68 96 03/21/22 07:15 95 25 H 96/68 95 03/21/22 07:00 91 20 94 L 03/21/22 06:45 98 20 95 03/21/22 06:30 92 20 93 L 03/21/22 06:15 94 20 95/67 94 L 03/21/22 06:00 91 20 95 03/21/22 05:45 94 20 94 L 03/21/22 05:30 89 20 93 L 03/21/22 05:15 87 20 92 L 03/21/22 05:00 85 20 94 L 03/21/22 04:45 85 20 96 03/21/22 04:30 89 20 94 L 03/21/22 04:15 91 20 96/68 95 03/21/22 04:00 98.3 F 86 20 97 50 03/21/22 03:52 50 03/21/22 03:45 87 20 96 03/21/22 03:30 87 20 94 L 03/21/22 03:15 85 20 106/73 93 L 03/21/22 03:00 85 20 93 L 03/21/22 02:45 84 20 92 L 03/21/22 02:30 85 20 97 03/21/22 02:15 87 20 99/68 97 03/21/22 02:00 92 20 104/74 98 03/21/22 01:45 93 20 98 60 03/21/22 01:30 93 20 98 03/21/22 01:15 94 20 104/74 98 03/21/22 01:00 94 20 98 60 03/21/22 00:45 94 20 99 03/21/22 00:30 94 20 98 03/21/22 00:15 94 20 99 03/21/22 00:00 97.7 F 93 20 112/72 99 80 03/20/22 23:45 89 20 99 03/20/22 23:30 83 20 99 03/20/22 23:21 80 03/20/22 23:15 79 20 95 03/20/22 23:03 67 20 95 03/20/22 23:00 73 20 117/86 95 90 03/20/22 22:45 61 20 96 03/20/22 22:30 60 20 96 03/20/22 22:15 59 L 20 96 03/20/22 22:00 58 L 20 79/61 96 03/20/22 21:45 58 L 20 79/61 87 L 03/20/22 21:30 57 L 20 79/61 85 L 03/20/22 21:15 57 L 20 79/61 03/20/22 21:00 56 L 20 88/75 79 L 03/20/22 20:45 56 L 20 88/75 84 L 100 03/20/22 20:44 100 03/20/22 20:30 57 L 19 93 L 03/20/22 20:26 100 03/20/22 20:15 56 L 20 88/75 96 03/20/22 20:00 55 L 20 72/51 93 L 100 03/20/22 19:45 56 L 20 72/51 93 L 03/20/22 19:30 56 L 20 72/51 95 03/20/22 19:15 58 L 20 72/51 95 03/20/22 19:00 57 L 31 H 76/44 92 L 03/20/22 18:45 58 L 36 H 76/44 03/20/22 18:30 58 L 47 H 76/44 96 03/20/22 18:15 56 L 23 76/44 92 L 03/20/22 18:12 100 03/20/22 18:00 56 L 20 106/80 96 03/20/22 17:45 56 L 28 H 98/62 96 03/20/22 17:30 60 36 H 101/69 97 03/20/22 17:15 59 L 34 H 94/72 98 03/20/22 17:00 98.1 F 60 33 H 99/76 98 03/20/22 16:50 100 03/20/22 16:47 100 03/20/22 15:33 100 03/20/22 14:00 100 Intake and Output 03/20/22 03/21/22 03/21/22 22:59 06:59 14:59 Intake Total 848.191 971.889 878.829 Output Total 620 1325 735 Balance 228.191 -353.111 143.829 Intake: IV 625 600 475 Dextrose 5% in Water 1, 150 600 375 000 ml @ 75 mls/hr IV . [id number] [facility] with Sodium Bicarb (1 Meq/ml) 100 ml Rx#:[id number] Magnesium Sulfate-D5w Pmx 100 1 gm In Dextrose/Water 1 100ml.bag @ 100 mls/hr IVPB Q1H [facility] Rx#: [id number] Sodium Chloride 0.9% 1, 225 000 ml @ 0 mls/hr IV .STK -MED ONE Rx#:[id number] Sodium Chloride 0.9% 500 250 ml 500 ml @ 999 mls/hr IV .Q31M ONE Rx#:[id number] Intake, IV Titration 223.191 371.889 403.829 Amount Cisatracurium 200 mg In 65.412 Sodium Chloride 0.9% 180 ml @ 1 MCG/KG/MIN 5.117 mls/hr IV .Q24H [facility] Rx#: [id number] Heparin Sod,Pork in 0.45% 39.083 54.52 NaCl 25,000 unit In 0.45 % NaCl 1 250ml.bag @ Per Protocol IV .Q0M [facility] Rx#: [id number] Norepinephrine 4 mg In 123.191 135.591 188.387 Sodium Chloride 0.9% 250 ml @ 0.05 MCG/KG/MIN 16. 245 mls/hr IV .[id number] [facility] Rx#:[id number] propofoL 1,000 mg In 100 197.215 95.51 Empty Bag 1 bag @ 50 MCG/ KG/MIN 25.583 mls/hr IV . Q3H55M [facility] Rx#:[id number] Output: Gastric Drainage 400 Urine 620 925 735 Other: Voiding Method Indwelling Catheter Indwelling Catheter Indwelling Catheter Weight 91 kg 91 kg ABP, PAP, CO, CI - Last 8 Hours Arterial Blood Pressure 92/68 Arterial Blood Pressure 105/75 Arterial Blood Pressure 101/76 Arterial Blood Pressure 118/77 Arterial Blood Pressure 84/65 Arterial Blood Pressure 82/64 Arterial Blood Pressure 86/63 Arterial Blood Pressure 92/66 Arterial Blood Pressure 92/63 Arterial Blood Pressure 106/70 Arterial Blood Pressure 104/71 Arterial Blood Pressure 106/68 Arterial Blood Pressure 102/66 Arterial Blood Pressure 89/62 Arterial Blood Pressure 88/62 Arterial Blood Pressure 95/66 Arterial Blood Pressure 91/61 Arterial Blood Pressure 86/58 Arterial Blood Pressure 89/61 Arterial Blood Pressure 84/57 Arterial Blood Pressure 88/59 Arterial Blood Pressure 87/58 Arterial Blood Pressure 96/63 Arterial Blood Pressure 95/62 Arterial Blood Pressure 91/60 Arterial Blood Pressure 87/58 Arterial Blood Pressure 85/58 Arterial Blood Pressure 83/58 Results CBC & Chem 7: 03/21/22 04:46 03/21/22 08:25 Labs: Abnormal Lab Results - Last 24 Hours (Table) 03/20/22 03/20/22 03/20/22 Range/Units 14:55 15:50 16:50 WBC 20.4 H (3.8-10.6) k/uL Neutrophils # 18.4 H (1.3-7.7) k/uL Lymphocytes # (1.0-4.8) k/uL APTT (22.0-30.0) sec ABG pH 7.13 L* (7.35-7.45) ABG pCO2 57 H (35-45) mmHg ABG pO2 57 L* (83-108) mmHg ABG HCO3 19 L (21-25) mmol/L ABG Total CO2 (19-24) mmol/L ABG O2 Saturation 78.1 L (94-97) % Sodium (137-145) mmol/L Carbon Dioxide (22-30) mmol/L BUN (9-20) mg/dL Creatinine (0.66-1.25) mg/dL Glucose (74-99) mg/dL POC Glucose (mg/dL) 179 H (70-110) mg/dL Calcium (8.4-10.2) mg/dL AST (17-59) U/L ALT (4-49) U/L Troponin I (0.000-0.034) ng/mL Total Protein (6.3-8.2) g/dL Albumin (3.5-5.0) g/dL HDL Cholesterol (40.00-60.00) mg/dL 03/20/22 03/20/22 03/20/22 Range/Units 17:56 18:07 20:08 WBC 12.9 H (3.8-10.6) k/uL Neutrophils # (1.3-7.7) k/uL Lymphocytes # (1.0-4.8) k/uL APTT 102.6 H* (22.0-30.0) sec ABG pH 7.33 L (7.35-7.45) ABG pCO2 (35-45) mmHg ABG pO2 126 H (83-108) mmHg ABG HCO3 19 L (21-25) mmol/L ABG Total CO2 (19-24) mmol/L ABG O2 Saturation 98.8 H (94-97) % Sodium (137-145) mmol/L Carbon Dioxide (22-30) mmol/L BUN (9-20) mg/dL Creatinine (0.66-1.25) mg/dL Glucose (74-99) mg/dL POC Glucose (mg/dL) (70-110) mg/dL Calcium (8.4-10.2) mg/dL AST (17-59) U/L ALT (4-49) U/L Troponin I (0.000-0.034) ng/mL Total Protein (6.3-8.2) g/dL Albumin (3.5-5.0) g/dL HDL Cholesterol (40.00-60.00) mg/dL 03/20/22 03/20/22 03/20/22 Range/Units 20:12 20:19 20:36 WBC (3.8-10.6) k/uL Neutrophils # (1.3-7.7) k/uL Lymphocytes # (1.0-4.8) k/uL APTT 50.4 H (22.0-30.0) sec ABG pH 7.23 L (7.35-7.45) ABG pCO2 28 L (35-45) mmHg ABG pO2 (83-108) mmHg ABG HCO3 12 L (21-25) mmol/L ABG Total CO2 13 L (19-24) mmol/L ABG O2 Saturation (94-97) % Sodium 132 L (137-145) mmol/L Carbon Dioxide 18 L (22-30) mmol/L BUN (9-20) mg/dL Creatinine (0.66-1.25) mg/dL Glucose 128 H (74-99) mg/dL POC Glucose (mg/dL) (70-110) mg/dL Calcium 6.9 L (8.4-10.2) mg/dL AST 672 H (17-59) U/L ALT 76 H (4-49) U/L Troponin I (0.000-0.034) ng/mL Total Protein 5.1 L (6.3-8.2) g/dL Albumin 2.6 L (3.5-5.0) g/dL HDL Cholesterol (40.00-60.00) mg/dL 03/21/22 03/21/22 03/21/22 Range/Units 00:00 04:46 04:46 WBC 19.5 H (3.8-10.6) k/uL Neutrophils # 17.8 H (1.3-7.7) k/uL Lymphocytes # 0.9 L (1.0-4.8) k/uL APTT 76.8 H (22.0-30.0) sec ABG pH (7.35-7.45) ABG pCO2 (35-45) mmHg ABG pO2 (83-108) mmHg ABG HCO3 (21-25) mmol/L ABG Total CO2 (19-24) mmol/L ABG O2 Saturation (94-97) % Sodium (137-145) mmol/L Carbon Dioxide (22-30) mmol/L BUN (9-20) mg/dL Creatinine (0.66-1.25) mg/dL Glucose (74-99) mg/dL POC Glucose (mg/dL) (70-110) mg/dL Calcium (8.4-10.2) mg/dL AST (17-59) U/L ALT (4-49) U/L Troponin I (0.000-0.034) ng/mL Total Protein (6.3-8.2) g/dL Albumin (3.5-5.0) g/dL HDL Cholesterol 39.90 L (40.00-60.00) mg/dL 03/21/22 03/21/22 03/21/22 Range/Units 04:46 05:47 08:25 WBC (3.8-10.6) k/uL Neutrophils # (1.3-7.7) k/uL Lymphocytes # (1.0-4.8) k/uL APTT (22.0-30.0) sec ABG pH (7.35-7.45) ABG pCO2 (35-45) mmHg ABG pO2 (83-108) mmHg ABG HCO3 (21-25) mmol/L ABG Total CO2 (19-24) mmol/L ABG O2 Saturation 97.7 H (94-97) % Sodium 131 L (137-145) mmol/L Carbon Dioxide 19 L (22-30) mmol/L BUN 21 H (9-20) mg/dL Creatinine 1.26 H (0.66-1.25) mg/dL Glucose 239 H (74-99) mg/dL POC Glucose (mg/dL) (70-110) mg/dL Calcium 7.4 L (8.4-10.2) mg/dL AST (17-59) U/L ALT (4-49) U/L Troponin I 118.000 H* (0.000-0.034) ng/mL Total Protein (6.3-8.2) g/dL Albumin (3.5-5.0) g/dL HDL Cholesterol (40.00-60.00) mg/dL 03/21/22 Range/Units 08:25 WBC (3.8-10.6) k/uL Neutrophils # (1.3-7.7) k/uL Lymphocytes # (1.0-4.8) k/uL APTT 131.5 H* (22.0-30.0) sec ABG pH (7.35-7.45) ABG pCO2 (35-45) mmHg ABG pO2 (83-108) mmHg ABG HCO3 (21-25) mmol/L ABG Total CO2 (19-24) mmol/L ABG O2 Saturation (94-97) % Sodium (137-145) mmol/L Carbon Dioxide (22-30) mmol/L BUN (9-20) mg/dL Creatinine (0.66-1.25) mg/dL Glucose (74-99) mg/dL POC Glucose (mg/dL) (70-110) mg/dL Calcium (8.4-10.2) mg/dL AST (17-59) U/L ALT (4-49) U/L Troponin I (0.000-0.034) ng/mL Total Protein (6.3-8.2) g/dL Albumin (3.5-5.0) g/dL HDL Cholesterol (40.00-60.00) mg/dL
[2022-03-21 13:41] LABS: Glucose,Whole Blood 319 mg/dL (70-110)
[2022-03-21] MEDS ORDERED: DEXTROSE 50% SYRINGE 50 ML IVP PRN ×2 (13:43)
[2022-03-21 13:45] LABS: HCT 35.3 % (39.0-53.0); HGB 12.1 gm/dL (13.0-17.5); MCHC 34.2 g/dL (31.0-37.0); MCV 96.6 fL (80.0-100.0); Mean Platelet Volume 7.4; Platelet Count 242 k/uL (150-450); RBC 3.66 m/uL (4.30-5.90); RDW 13.7 % (11.5-15.5); WBC 19.4 k/uL (3.8-10.6)
[2022-03-21] MEDS: INSULIN ASPART (NovoLOG) 100 UNIT/ML VIAL SQ SCH ×2 (13:50→18:31)
[2022-03-21 16:44] LABS: HCT 35.7 % (39.0-53.0); HGB 11.7 gm/dL (13.0-17.5); MCH 31.3 pg (25.0-35.0); MCHC 32.7 g/dL (31.0-37.0); MCV 95.9 fL (80.0-100.0); Mean Platelet Volume 7.6; Platelet Count 224 k/uL (150-450); RBC 3.72 m/uL (4.30-5.90); RDW 13.3 % (11.5-15.5); WBC 19.4 k/uL (3.8-10.6)
[2022-03-21] MEDS ORDERED: SODIUM CHLORIDE 0.9% 150 ML with VASOPRESSIN 60 UNIT IV SCH ×2 (18:00)
[2022-03-21 18:12] LABS: Glucose,Whole Blood 356 mg/dL (70-110)
[2022-03-21] MEDS ORDERED: LACTATED RINGERS 1,000 ML IV SCH ×2 (18:15)
[2022-03-21] MEDS: HEPARIN SODIUM,PORCINE 12,500 UNIT in DEXTROSE 5% IN WATER 500 ML IV SCH ×2 (18:47)
[2022-03-21] MEDS: CISATRACURIUM 200 MG in SODIUM CHLORIDE 0.9% 180 ML IV SCH (19:09)
[2022-03-21] MEDS: ATORVASTATIN 80 MG TAB PO SCH (20:52)
[2022-03-21 21:06] LABS: Glucose,Whole Blood 267 mg/dL (70-110)
[2022-03-21 21:48] VITALS: BP 136/82; PULSE 103; TEMP 97.4
--- NOTE | 2022-03-22 10:31 | P.DS ---
Providers Date of admission: 03/20/22 16:50 Expected date of discharge: 03/22/22 Attending physician: Alfredo Rizo MD Consults: 03/20/22 14:52 Consult Physician Routine Consulting Provider: Timmy Garber Consult Reason/Comments: STEMI Do you want consulting provider notified?: Already Contacted 03/20/22 16:50 Consult Physician Routine Consulting Provider: [facility] Consult Reason/Comments: Post Interventional Patient Do you want consulting provider notified?: Already Contacted 03/20/22 16:53 Consult Physician Routine Consulting Provider: Oliverio Bazzi Consult Reason/Comments: vent mgt Do you want consulting provider notified?: Already Contacted Primary care physician: Cat Harvey [facility] Course: Cardiogenic shock STEMI status post PCI Hypertension Hyperlipidemia Diabetes type 2 66-year-old man with a history of hypertension, hyperlipidemia, diabetes with no known past cardiac history presented with chest pain and weakness. Patient was brought in by emergency medical services and was found to have STEMI in route, given 325 mg of aspirin and was subsequently taken straight through the ER today angiography suite. Patient was apparently awake and alert while in the [employer]rick[employer], but was hypotensive and in cardiogenic shock. He had a 3 L Impala placed, was started on Levophed, then underwent angiography which showed diffuse three- vessel disease including STARCHER AND TENTER RANGE FEEDER of the RCA, PLV, significant disease in the left circumflex, critical disease in the LAD. Patient subsequently received 3 stents to the LAD, was intubated for airway protection as well as cardiogenic shock, then was transferred to the intensive care unit. Initial echocardiogram demonstrated an ejection fraction of 15%, repeat echocardiogram this morning demonstrated an ejection fraction of 55%, while patient is on dobutamine. Patient is on 0.11 of norepinephrine, 2.5 of dobutamine, Nimbex, 50 g of propofol. Intubated, volume control 450, FiO2 50%, PEEP 10, saturating well. Urine output is good on IV Lasix. Upon evaluation patient was afebrile, Heart rates are in the 120s, blood pressures are high 80s over high 40s, 93% on vent s ettings. CBC today demonstrates a leukocytosis 19.5. Chemistries show hyponatremia to 131, CO2 of 19, BUN 21, creatinine of 1.3, elevated glucose at 239, calcium of 7.4. Lipid panel shows an LDL of 80.5, HDL of 39.9. ABG on current vent settings demonstrated pH of 7.4, pCO2 of 39, pO2 of 94. Troponin today is 118. Chest x-ray showed diffuse increased interstitial lung markings. Patient was recommended for transfer by our cardiology service due to concern over inability to wean mechanical support. Patient was accepted for transfer by Dr. Kramer and Dr. Laurent and was air lifted to [facility] on 03/22 PM. Patient Condition at Discharge: Critical Plan - Discharge Summary Discharge Rx Participant: No New Discharge Prescriptions: No Action Rosuvastatin Calcium [Crestor] 40 mg PO W/SUPPER Multivitamins, Thera [Multivitamin (formulary)] 1 tab PO W/SUPPER Cholecalciferol [Vitamin D3 (25 Mcg = 1000 Iu)] 50 mcg PO W/BRKFST Aspirin EC [Ecotrin Low Dose] 81 mg PO W/SUPPER metFORMIN HCL [Glucophage] 500 mg PO W/BRKFST NIFEdipine [NIFEdipine ER] 30 mg PO W/BRKFST lisinopriL [Prinivil] 20 mg PO BID-W/MEALS Metoprolol Succinate [Toprol XL] 50 mg PO W/BRKFST Esomeprazole Magnesium [NexIUM 24Hr] 20 mg PO W/BRKFST Discharge Medication List Aspirin EC [Ecotrin Low Dose] 81 mg PO W/SUPPER 03/20/22 [History] Cholecalciferol [Vitamin D3 (25 Mcg = 1000 Iu)] 50 mcg PO W/BRKFST 03/20/22 [History] Esomeprazole Magnesium [NexIUM 24Hr] 20 mg PO W/BRKFST 03/20/22 [History] Metoprolol Succinate [Toprol XL] 50 mg PO W/BRKFST 03/20/22 [History] Multivitamins, Thera [Multivitamin (formulary)] 1 tab PO W/SUPPER 03/20/22 [History] NIFEdipine [NIFEdipine ER] 30 mg PO W/BRKFST 03/20/22 [History] Rosuvastatin Calcium [Crestor] 40 mg PO W/SUPPER 03/20/22 [History] lisinopriL [Prinivil] 20 mg PO BID-W/MEALS 03/20/22 [History] metFORMIN HCL [Glucophage] 500 mg PO W/BRKFST 03/20/22 [History] Follow up Appointment(s)/Referral(s): None,Stated [REFERRING] - 1-2 days Discharge Disposition: OTHER INSTITUTION NOT DEFINED
--- NOTE | 2022-03-22 15:29 | CA ---
Transthoracic Echo Report Name: Rad Lozano Age: 66 Gender: M : 1955 Exam Date: 03/21/2022 18:44 Exam Location: [place] [facility] Ht (in): 70 Wt (lb): 200 Ordering Physician: Alfredo Rizo MD Attending/Referring Phys: Laminating Machine Operator Helper Renay Ann RDCS Procedure CPT: Indications: evaluate pericardal effusion Cardiac Hx: Technical Quality: Technically difficult study Contrast 1: Total Dose (mL): Contrast 2: Total Dose (mL): MEASUREMENTS (Male / Female) Normal Values FINDINGS Left Ventricle Left ventricular ejection fraction is estimated at 50- 55 %. Right Ventricle Right Atrium Left Atrium Mitral Valve Aortic Valve Tricuspid Valve Pulmonic Valve Pericardium Large pericardial effusion. Early Possible tamponade Aorta CONCLUSIONS 1. Left ventricle systolic function borderline normal 2. Large pericardial effusion with early tamponade on the right atrium. Previewed by: Dr. Arlette Pool MD (Electronically Signed) Final Date: 22 March 2022 15:28
--- NOTE | 2022-04-16 10:10 | P.CARDCATH ---
Date of Procedure: 03/20/22 Description of Procedure: Cardiac Catheterization: The patient is a 66-year-old male who presented with symptoms of progressive dyspnea and evidence of acute myocardial infarction, he was evaluated at Dr. Garber. Recommendations were made regarding cardiac catheterization, the risks and the complications were discussed with the patient who is in full understanding and agreement. Procedure Description: Patient was brought to freezer laboratory technician in fasting semi-sedated state after receiving Fentanyl and Benadryl achieiving moderate conscious sedated state. Using Xylocaine Anesthesia and Seldinger technique, a 6-Montserratian sheath was introduced in the right femoral artery . The patient was hypotensive and dyspneic. Left coronary angiography was performed using a 6-Montserratian FL 4 guiding catheter images the left coronary system were obtained. The LAD was totally occluded. Attempt to advance 0.014 BMW J-wire was a super cross catheter were unsuccessful, at that time the patient was becoming more dyspneic and using Xylocaine anesthesia in the Seldinger technique 6-Montserratian sheath was introduced in the left femoral artery, elective intubation was performed. Subsequently the sheath in the left femoral artery was dilated with a 10-Montserratian dilator and a 5-Montserratian pigtail was related to the left ventricle after exchanging the wire to a 0.018 Impella wire the Impella catheter was advanced positioned and started with good cardiac output. Subsequently the guiding catheter was exchanged to an LBU 3.75-Montserratian a nd using a whisper wire super cross catheter there was inability to cross the total occlusion that wire was exchanged to a 0.014 fielder XT that was successful in crossing the lesion, subsequently a 1.0 x 10 mm Sapphire balloon was advanced and multiple inflations were performed, the balloon was removed and a 2.5 x 12 mm NC Treck balloon was advanced and multiple inflations at a maximum of 8 alesha were done. Following that the balloon was exchanged over the microcatheter to a 0.014 BMW wire. A 6-Montserratian guide liner catheter was introduced and the 2.5 x 12 mm Treck balloon was advanced and multiple inflations at a maximum of 8 alesha were done, the balloon was removed and the 2.5 x 12 mm NC balloon was advanced and inflations were done, attempt to advance a 2.5 x 23 mm Xience stent were unsuccessful the stent was removed and the 2.5 x 12 mm NC balloon was readvanced and further inflations were performed subsequently the 2.5 x 23 mm Xience's cardiac point stent was advanced deployed at 16 alesha, after removing another 2.5 x 23 mm Xience bentley point stent was deployed proximal to the first one at 16 alesha, after removing the balloon a 3.0 x 15 mm Xience bentley point was deployed in the proximal LAD and dilated at 16 alesha. After that the wire was removed images were obtained and reveal stable successful stenting, at that point guiding catheter was removed and a 6-Montserratian right Ming catheter was advanced and images of the right coronary artery was performed. Hemostasis was obtained in the right femoral artery was deployment of an Angio-Seal, the left femoral catheter was sutured in place. His ACT was monitored. Again the procedure his blood pressure was under good control and his oxygenation is stable. He was returned to the ICU. He received a loading dose of oral Brilinta at the start of the procedure and a total of 10,000 units of heparin. Findings: Fluoroscopy: Significant calcification of the LAD was noted Left main: This is a short sized vessel, bifurcating into left circumflex and LAD, left main has no high-grade stenosis LAD: In this vessel has an 80% stenosis proximally at the takeoff of the first septal rpg developer is totally occluded with no significant antegrade flow Left circumflex: This is a nondominant vessel, the first obtuse marginal branch is totally occluded with minimal antegrade flow beyond that the vessel is patent, the second obtuse marginal branch is small in caliber RCA: This is a dominant vessel, large in caliber, bifurcating into PDA and PLV the mid RCA has diffuse intimal disease up to 80%, the bifurcation of the PDA and PLV is in the midsegment, the PLV is totally occluded with minimal antegrade flow. Collaterals: There is collaterals from the left coronary system toward the left PLV. Left Ventriculogram: Not performed Conclusion: 1. Calcified coronary arteries 2. Acutely occluded proximal LAD 3. Subtotally occluded first obtuse marginal branch and chronically occluded right PLV with significant disease in the RCA 4. Successful recanalization of the proximal LAD segment with reduction of stenosis from 100% to 0%. Recommendations: The patient will be continued on dual antiplatelet treatment with aspirin and Brilinta for at least one year with aggressive coronary risks modifications. The Impella catheter will be kept in place, an echocardiogram with Doppler will be obtained. Depending on his progress further recommendations will be made. The findings and the recommendations were discussed with the family and they were in full understanding and agreement. The prognosis is guarded Duration of sedation is 128 minutes.
== END 2022-03-21 21:54 | disposition short-term general hospital (02) | DRG 215 ==
LOC: CATHCVL 13:46 → 2SICU 16:50
PROVIDERS: ADMIT Internal Medicine Interventional Cardiology; ATTEND Internal Medicine
PROC: 4A023N7 Measurement of Cardiac Sampling and Pressure, Left Heart, Percutaneous Approach (ICD-10-PCS; principal; 2022-03-20 12:30)
PROC: 027036Z Dilation of Coronary Artery, One Artery with Three Drug-eluting Intraluminal Devices, Percutaneous Approach (ICD-10-PCS; principal; 2022-03-20 12:30)
PROC: 02HA3RZ Insertion of Short-term External Heart Assist System into Heart, Percutaneous Approach (ICD-10-PCS; principal; 2022-03-20 12:30)
PROC: B2111ZZ Fluoroscopy of Multiple Coronary Arteries using Low Osmolar Contrast (ICD-10-PCS; principal; 2022-03-20 12:30)
PROC: 5A0221D Assistance with Cardiac Output using Impeller Pump, Continuous (ICD-10-PCS; principal; 2022-03-20 12:30)
PROC: 5A1945Z Respiratory Ventilation, 24-96 Consecutive Hours (ICD-10-PCS; 2022-03-20 12:30)
PROC: 3E043XZ Introduction of Vasopressor into Central Vein, Percutaneous Approach (ICD-10-PCS; 2022-03-20 12:30)
PROC: 0BH17EZ Insertion of Endotracheal Airway into Trachea, Via Natural or Artificial Opening (ICD-10-PCS; 2022-03-20 12:30)
PROC: 02HV33Z Insertion of Infusion Device into Superior Vena Cava, Percutaneous Approach (ICD-10-PCS; 2022-03-20 12:30)
PROC: 0DH67UZ Insertion of Feeding Device into Stomach, Via Natural or Artificial Opening (ICD-10-PCS; 2022-03-21)
PROC: 3E0G76Z Introduction of Nutritional Substance into Upper GI, Via Natural or Artificial Opening (ICD-10-PCS; 2022-03-21)
DX: I21.3 ST elevation (STEMI) myocardial infarction of unspecified site (principal); R57.0 Cardiogenic shock; E87.1 Hypo-osmolality and hyponatremia; J81.1 Chronic pulmonary edema; R74.01 Elevation of levels of liver transaminase levels; D72.829 Elevated white blood cell count, unspecified; K21.9 Gastro-esophageal reflux disease without esophagitis; E11.65 Type 2 diabetes mellitus with hyperglycemia; E78.5 Hyperlipidemia, unspecified; I10 Essential (primary) hypertension; I25.10 Atherosclerotic heart disease of native coronary artery without angina pectoris; I45.10 Unspecified right bundle-branch block; Z79.84 Long term (current) use of oral hypoglycemic drugs; Z79.82 Long term (current) use of aspirin; Z79.899 Other long term (current) drug therapy; Z20.822 Contact with and (suspected) exposure to COVID-19; Z71.3 Dietary counseling and surveillance
CPT/HCPCS: 71045; 80048; 80053; 80061; 82565; 82805; 83036; 83735; 84484; 85025; 85027; 85384; 85730; 86850; 86900; 86901; 87635; 93306; 93308; 93458; 94002; 94003; 94640

== ENCOUNTER 2022-04-05 12:52 | Emergency (ER) | payer MEDICARE ==
[2022-04-05 13:02] VITALS: PULSE 81; RESP 18; TEMP 97
--- NOTE | 2022-04-05 14:53 | ED ---
Eye Problem HPI - General Chief complaint: Eye Problems Stated complaint: recheck Time Seen by Provider: 04/05/22 14:21 Source: patient Mode of arrival: ambulatory Limitations: no limitations - History of Present Illness Initial comments: Age is a 66-year-old male with a past medical history of recent STEMI s/p 3 stents who presents to the emergency department with a chief complaint of bleeding from left eye. Patient states he woke up this morning with redness of the eye. Denies trauma. Denies drainage from the eye, eye pain, visual changes. Patient started on Plavix after STEMI at the end of February. - Related Data Home Medications Medication Instructions Recorded Confirmed Aspirin EC [Ecotrin Low Dose] 81 mg PO W/SUPPER 03/20/22 03/20/22 Cholecalciferol [Vitamin D3 (25 50 mcg PO W/BRKFST 03/20/22 03/20/22 Mcg = 1000 Iu)] Esomeprazole Magnesium [NexIUM 20 mg PO W/BRKFST 03/20/22 03/20/22 24Hr] Metoprolol Succinate [Toprol XL] 50 mg PO W/BRKFST 03/20/22 03/20/22 Multivitamins, Thera [Multivitamin 1 tab PO W/SUPPER 03/20/22 03/20/22 (formulary)] NIFEdipine [NIFEdipine ER] 30 mg PO W/BRKFST 03/20/22 03/20/22 Rosuvastatin Calcium [Crestor] 40 mg PO W/SUPPER 03/20/22 03/20/22 lisinopriL [Prinivil] 20 mg PO BID-W/MEALS 03/20/22 03/20/22 metFORMIN HCL [Glucophage] 500 mg PO W/BRKFST 03/20/22 03/20/22 Allergies Allergy/AdvReac Type Severity Reaction Status Date / Time No Known Allergies Allergy Verified 04/05/22 12:58 Review of Systems ROS Statement: Those systems with pertinent positive or pertinent negative responses have been documented in the HPI. ROS Other: All systems not noted in ROS Statement are negative. Past Medical History Past Medical History: Diabetes Mellitus, Hyperlipidemia, Hypertension, Myocardial Infarction (IA) History of Any Multi-Drug Resistant Organisms: None Reported Past Surgical History: No Surgical Hx Reported, Heart Catheterization With Stent Past Anesthesia/Blood Transfusion Reactions: No Reported Reaction Past Psychological History: No Psychological Hx Reported Smoking Status: Never smoker General Exam Limitations: no limitations General appearance: alert, in no apparent distress Head exam: Present: atraumatic, normocephalic, normal inspection Eye exam: Present: normal appearance, PERRL, EOMI, conjunctival injection. Absent: scleral icterus, nystagmus, periorbital swelling, periorbital tenderness Pupils: Present: normal accommodation Respiratory exam: Present: normal lung sounds bilaterally. Absent: respiratory distress, wheezes, rales, rhonchi, stridor Cardiovascular Exam: Present: regular rate, normal rhythm, normal heart sounds. Absent: systolic murmur, diastolic murmur, rubs, gallop, clicks Neurological exam: Present: alert, oriented X3, CN II-XII intact Psychiatric exam: Present: normal affect, normal mood Skin exam: Present: warm, dry, intact, normal color. Absent: rash Course Vital Signs 04/05/22 04/05/22 12:59 15:05 Temperature 97 F L Pulse Rate 81 81 Respiratory 18 18 Rate Blood Pressure 117/71 108/72 O2 Sat by Pulse 100 99 Oximetry Medical Decision Making - Medical Decision Making This is a 66-year-old male presents with the redness of the left eye. Conjunctivaal hemorrhage visualized. PERRL. Education and reassurance provided. Dr. Laura is my attending. Disposition Clinical Impression: Subconjunctival hemorrhage of left eye, Recent ST elevation myocardial infarction (STEMI) Disposition: HOME SELF-CARE Condition: Good Instructions (If sedation given, give patient instructions): Subconjunctival Hemorrhage (ED) Additional Instructions: Follow-up with primary care provider in one to 2 days and return to the emergency department if you experience new, concerning, or worsening symptoms Is patient prescribed a controlled substance at d/c from ED?: No Referrals: Cat Pryor DO [Primary Care Provider] - 1-2 days Time of Disposition: 14:53
[2022-04-05 15:09] VITALS: BP 108/72
== END 2022-04-05 15:08 | disposition home or self-care (01) ==
LOC: EC 12:52
DX: H11.32 Conjunctival hemorrhage, left eye (principal); I21.3 ST elevation (STEMI) myocardial infarction of unspecified site; I10 Essential (primary) hypertension; E78.5 Hyperlipidemia, unspecified; E11.9 Type 2 diabetes mellitus without complications; Z79.82 Long term (current) use of aspirin; Z79.84 Long term (current) use of oral hypoglycemic drugs
CPT/HCPCS: 99283

== ENCOUNTER 2023-02-02 05:54 | Inpatient (IN) | payer MEDICARE ==
--- NOTE | 2023-02-02 06:24 | ED ---
General Adult HPI - General Chief complaint: Syncope Stated complaint: syncope Time Seen by Provider: 02/02/23 05:55 Source: patient, EMS, RN notes reviewed Mode of arrival: EMS Limitations: no limitations - History of Present Illness Initial comments: 67-year-old male presents emergency Department with chief complaint of syncopal episode. Patient states that [facility] because his significant other advised him to go because he's been having increasing congestion, rattling of his chest and cough. He states he got released around 3:30 AM's morning states that he went home and reportedly had is syncopal episode from a standing position. Patient does have significant cardiac history in which he had an IL last year with stent placement he states that he had an impella and was intubated for 10 days. Patient has a history of congestive heart failure. Patient states he was given Lasix last night prior to discharge. He has no complaints now other then c-collar bothering him. He denies any headache, neck pain, chest pain shortness of breath leg pain or leg swelling. - Related Data Home Medications Medication Instructions Recorded Confirmed Aspirin EC [Ecotrin Low Dose] 81 mg PO W/SUPPER 03/20/22 03/20/22 Cholecalciferol [Vitamin D3 (25 50 mcg PO W/BRKFST 03/20/22 03/20/22 Mcg = 1000 Iu)] Esomeprazole Magnesium [NexIUM 20 mg PO W/BRKFST 03/20/22 03/20/22 24Hr] Metoprolol Succinate [Toprol XL] 50 mg PO W/BRKFST 03/20/22 03/20/22 Multivitamins, Thera [Multivitamin 1 tab PO W/SUPPER 03/20/22 03/20/22 (formulary)] NIFEdipine [NIFEdipine ER] 30 mg PO W/BRKFST 03/20/22 03/20/22 Rosuvastatin Calcium [Crestor] 40 mg PO W/SUPPER 03/20/22 03/20/22 lisinopriL [Prinivil] 20 mg PO BID-W/MEALS 03/20/22 03/20/22 metFORMIN HCL [Glucophage] 500 mg PO W/BRKFST 03/20/22 03/20/22 Allergies Allergy/AdvReac Type Severity Reaction Status Date / Time No Known Allergies Allergy Verified 04/05/22 12:58 Review of Systems ROS Statement: Those systems with pertinent positive or pertinent negative responses have been documented in the HPI. ROS Other: All systems not noted in ROS Statement are negative. Past Medical History Past Medical History: Diabetes Mellitus, Hyperlipidemia, Hypertension, Myocardial Infarction ([place]) History of Any Multi-Drug Resistant Organisms: None Reported Past Surgical History: No Surgical Hx Reported, Heart Catheterization With Stent Past Anesthesia/Blood Transfusion Reactions: No Reported Reaction Past Psychological History: No Psychological Hx Reported Smoking Status: Never smoker General Exam Limitations: no limitations General appearance: alert, in no apparent distress Head exam: Present: atraumatic, normocephalic, normal inspection Eye exam: Present: normal appearance, PERRL, EOMI. Absent: scleral icterus, conjunctival injection, periorbital swelling ENT exam: Present: normal exam, normal oropharynx, mucous membranes moist Neck exam: Present: normal inspection. Absent: tenderness, meningismus, full ROM (Patient c-collar), lymphadenopathy Respiratory exam: Present: rhonchi. Absent: normal lung sounds bilaterally, respiratory distress, wheezes, rales, stridor Cardiovascular Exam: Present: regular rate, normal rhythm, normal heart sounds. Absent: systolic murmur, diastolic murmur, rubs, gallop, clicks GI/Abdominal exam: Present: soft, normal bowel sounds. Absent: distended, tenderness, guarding, rebound, rigid Neurological exam: Present: alert, oriented X3, CN II-XII intact, reflexes normal. Absent: motor sensory deficit Course Vital Signs 02/02/23 05:55 Temperature 97.9 F Pulse Rate 62 Respiratory 16 Rate Blood Pressure 146/77 O2 Sat by Pulse 96 Oximetry EKG Findings - EKG Comments: EKG Findings:: EKG performed at 5:59/rhythm is noted for scattered block, rate of 78 WA 214 QRS 97 QT/QTC 410/431 - EKG Results: EKG: interpreted by FABIENNE Medical Decision Making - Medical Decision Making Was pt. sent in by a medical professional or institution (, PA, LAB INTERN, urgent care, hospital, or [facility]...) When possible be specific @ -No Did you speak to anyone other than the patient for history (EMS, parent, family, police, friend...)? What history was obtained from this source @ -EMS, since the room providing history of injury and recent ER visit Did you review nursing and triage notes (agree or disagree)? Why? @ -I reviewed and agree with nursing and triage notes Were old charts reviewed (outside hosp., previous admission, EMS record, old EKG, old radiological studies, urgent care reports/EKG's, [facility] records)? Report findings @ -No old charts were reviewed Differential Diagnosis (chest pain, altered mental status, abdominal pain women, abdominal pain men, vaginal bleeding, weakness, fever, dyspnea, syncope, headache, dizziness, GI bleed, back pain, seizure, CVA, palpatations, mental health, musculoskeletal)? @ -Differential Syncope: Valvular disease, hypertrophic cardiomyopathy, pulmonary embolism, tamponade, tachycardia, bradycardia, IL, hypovolemia, hemorrhage, dissection, anemia, intracranial hemorrhage, seizure, hypoglycemia, carbon monoxide poisoning, this is not meant to be an all-inclusive list. EKG interpreted by me (3pts min.). @ -As above X-rays interpreted by me (1pt min.). @ -Chest x-ray shows evidence of left lung infiltrate CT interpreted by me (1pt min.). @ -CT brain, C-spine shows no acute acute intracranial hemorrhage or cervical fracture, CT chest PE study shows no evidence of pulmonary embolism U/S interpreted by me (1pt. min.). @ -None done What testing was considered but not performed or refused? (CT, X-rays, U/S, labs)? Why? @ -None What meds were considered but not given or refused? Why? @ -None Did you discuss the management of the patient with other professionals (professionals i.e. , PA, LAB INTERN, lab, RT, psych nurse, social work associate, web project manager, teacher, photographic intelligence officer, welfare case worker)? Give summary @ -Discuss case with Dr. Rose accepts admission will have repeat cardiac enzymes, cardiology evaluation Was smoking cessation discussed for >3mins.? @ -No Was critical care preformed (if so, how long)? @ -No Were there social determinants of health that impacted care today? How? (Homelessness, low income, unemployed, alcoholism, drug addiction, transportation, low edu. Level, literacy, decrease access to med. care, fci, rehab)? @ -No Was there de-escalation of care discussed even if they declined (Discuss DNR or withdrawal of care, Hospice)? DNR status @ -No What co-morbidities impacted this encounter? (DM, HTN, Smoking, COPD, CAD, Cancer, CVA, ARF, Chemo, Hep., AIDS, mental health diagnosis, sleep apnea, morbid obesity)? @ -CAD Was patient admitted / discharged? Hospital course, mention meds given and route, prescriptions, significant lab abnormalities, going to OR and other pert inent info. @ -Admitted patient presented for syncopal episode patient's had 2 recent ER visits. Patient is encouraged history and possible pneumonia on x-ray with recent cough congestion patient is on oral antibiotics will have further evaluation and treatment Undiagnosed new problem with uncertain prognosis? @ -No Drug Therapy requiring intensive monitoring for toxicity (Heparin, Nitro, Insulin, Cardizem)? @ -No Were any procedures done? @ -No Diagnosis/symptom? @ -Syncope, pleural effusion, Acute, or Chronic, or Acute on Chronic? @ -Acute Uncomplicated (without systemic symptoms) or Complicated (systemic symptoms)? @ -complicated Side effects of treatment? @ -No Exacerbation, Progression, or Severe Exacerbation? @ -No Poses a threat to life or bodily function? How? (Chest pain, USA, IL, pneumonia, PE, COPD, DKA, ARF, appy, cholecystitis, CVA, Diverticulitis, Homicidal, Suicidal, threat to staff... and all critical care pts) @ -No - Lab Data Result diagrams: 02/02/23 06:07 02/02/23 06:07 Lab Results 02/02/23 02/02/23 02/02/23 Range/Units 06:07 06:07 06:07 WBC 10.0 (3.8-10.6) k/uL RBC 4.55 (4.30-5.90) m/uL Hgb 14.1 (13.0-17.5) gm/dL Hct 43.0 (39.0-53.0) % MCV 94.5 (80.0-100.0) fL MCH 31.0 (25.0-35.0) pg MCHC 32.8 (31.0-37.0) g/dL RDW 14.2 (11.5-15.5) % Plt Count 186 (150-450) k/uL MPV 8.0 Neutrophils % 76 % Lymphocytes % 18 % Monocytes % 4 % Eosinophils % 1 % Basophils % 0 % Neutrophils # 7.6 (1.3-7.7) k/uL Lymphocytes # 1.8 (1.0-4.8) k/uL Monocytes # 0.4 (0-1.0) k/uL Eosinophils # 0.1 (0-0.7) k/uL Basophils # 0.0 (0-0.2) k/uL PT 10.8 (9.0-12.0) sec INR 1.0 (<1.2) APTT 22.0 (22.0-30.0) sec D-Dimer (<0.60) mg/L FEU Sodium 136 L (137-145) mmol/L Potassium 4.6 (3.5-5.1) mmol/L Chloride 101 (98-107) mmol/L Carbon Dioxide 26 (22-30) mmol/L Anion Gap 9 mmol/L BUN 18 (9-20) mg/dL Creatinine 0.87 (0.66-1.25) mg/dL Est GFR (CKD-EPI)AfAm >90 (>60 ml/min/1.73 sqM) Est GFR (CKD-EPI)NonAf 89 (>60 ml/min/1.73 sqM) Glucose 127 H (74-99) mg/dL Calcium 9.1 (8.4-10.2) mg/dL Magnesium 1.9 (1.6-2.3) mg/dL Total Bilirubin 1.7 H (0.2-1.3) mg/dL AST 31 (17-59) U/L ALT 23 (4-49) U/L Alkaline Phosphatase 80 (38-126) U/L Troponin I (0.000-0.034) ng/mL Total Protein 7.3 (6.3-8.2) g/dL Albumin 4.5 (3.5-5.0) g/dL 02/02/23 02/02/23 Range/Units 06:07 06:07 WBC (3.8-10.6) k/uL RBC (4.30-5.90) m/uL Hgb (13.0-17.5) gm/dL Hct (39.0-53.0) % MCV (80.0-100.0) fL MCH (25.0-35.0) pg MCHC (31.0-37.0) g/dL RDW (11.5-15.5) % Plt Count (150-450) k/uL MPV Neutrophils % % Lymphocytes % % Monocytes % % Eosinophils % % Basophils % % Neutrophils # (1.3-7.7) k/uL Lymphocytes # (1.0-4.8) k/uL Monocytes # (0-1.0) k/uL Eosinophils # (0-0.7) k/uL Basophils # (0-0.2) k/uL PT (9.0-12.0) sec INR (<1.2) APTT (22.0-30.0) sec D-Dimer 1.70 H (<0.60) mg/L FEU Sodium (137-145) mmol/L Potassium (3.5-5.1) mmol/L Chloride (98-107) mmol/L Carbon Dioxide (22-30) mmol/L Anion Gap mmol/L BUN (9-20) mg/dL Creatinine (0.66-1.25) mg/dL Est GFR (CKD-EPI)AfAm (>60 ml/min/1.73 sqM) Est GFR (CKD-EPI)NonAf (>60 ml/min/1.73 sqM) Glucose (74-99) mg/dL Calcium (8.4-10.2) mg/dL Magnesium (1.6-2.3) mg/dL Total Bilirubin (0.2-1.3) mg/dL AST (17-59) U/L ALT (4-49) U/L Alkaline Phosphatase (38-126) U/L Troponin I 0.015 (0.000-0.034) ng/mL Total Protein (6.3-8.2) g/dL Albumin (3.5-5.0) g/dL Disposition Clinical Impression: Syncope, Pneumonia, Pleural effusion Disposition: ADMITTED IP TO THIS HOSP Condition: Fair Referrals: Cat Pryor DO [Primary Care Provider] - 1-2 days Time of Disposition: 08:51
[2023-02-02 06:45] LABS: Basophils % (A) 0 %; Eosinophils # (A) 0.1 k/uL (0-0.7); Eosinophils % (A) 1 %; HGB 14.1 gm/dL (13.0-17.5); Lymphocytes # (A) 1.8 k/uL (1.0-4.8); Lymphocytes % (A) 18 %; MCHC 32.8 g/dL (31.0-37.0); MCV 94.5 fL (80.0-100.0); Monocytes # (A) 0.4 k/uL (0-1.0); Monocytes % (A) 4 %; Neutrophils # (A) 7.6 k/uL (1.3-7.7); Neutrophils % (A) 76 %; Platelet Count 186 k/uL (150-450); RBC 4.55 m/uL (4.30-5.90); RDW 14.2 % (11.5-15.5)
[2023-02-02 06:53] LABS: Prothrombin Time 10.8 sec (9.0-12.0)
[2023-02-02 06:58] LABS: ALT 23 U/L (4-49); AST 31 U/L (17-59); African American GFR (CKD) >90 (>60 ml/min/1.73 sqM); Albumin 4.5 g/dL (3.5-5.0); Alkaline Phosphatase 80 U/L (38-126); Anion Gap 9 mmol/L; Blood Urea Nitrogen 18 mg/dL (9-20); Calcium 9.1 mg/dL (8.4-10.2); Carbon Dioxide 26 mmol/L (22-30); Chloride 101 mmol/L (98-107); Glucose 127 mg/dL (74-99); Magnesium 1.9 mg/dL (1.6-2.3); Non-African American GFR(CKD) 89 (>60 ml/min/1.73 sqM); Potassium 4.6 mmol/L (3.5-5.1); Sodium 136 mmol/L (137-145); Total Bilirubin 1.7 mg/dL (0.2-1.3); Total Protein 7.3 g/dL (6.3-8.2)
--- NOTE | 2023-02-02 07:27 | CT ---
EXAMINATION TYPE: CT brain yanira jacobs DATE OF EXAM: 02/02/2023 COMPARISON: None HISTORY: Syncope Unenhanced CT of the brain was performed. The ventricles, basal cisterns and sulci overlying the cerebral convexities demonstrate mild enlargem ent. There is no evidence for intracranial hemorrhage or sulcal effacement. There is decreased attenuatio n about the periventricular white matter and deep white matter of both cerebral hemispheres, compatib le with chronic small vessel ischemia. No mass effects are seen. If symptoms persist consider MRI. Osseous calvarium is intact. IMPRESSION: 1. Age related atrophic and chronic small vessel ischemic change without acute intracranial process seen at this time. CT Cervical Spine: Unenhanced CT of the cervical spine was performed with bone and soft tissue window settings submitted . Coronal and sagittal reconstruction is obtained. There is normal alignment and prevertebral soft tissues. No evidence for acute cervical fracture . Scattered degenerative disc disease and spondylosis. Biapical scarring. IMPRESSION: 1. No evidence for acute fracture or subluxation of the cervical spine.
--- NOTE | 2023-02-02 07:44 | XR ---
EXAMINATION TYPE: XR chest 2V DATE OF EXAM: 02/02/2023 COMPARISON: 03/21/2022 HISTORY: Shortness of breath TECHNIQUE: Frontal and lateral views of the chest are obtained. FINDINGS: Scattered senescent parenchymal changes noted. Hyperinflation compatible with COPD. Mild increased density left lower lobe medially may reflect developing infiltrate or atelectasis. Heart size is stable. Mediastinal structures are stable and grossly unremarkable. No evidence for hilar prominence. Degenerative changes dorsal spine. IMPRESSION: 1. Mild increased density left lower lobe medially may reflect developing infiltrate or atelectasis.
[2023-02-02] MEDS ORDERED: AZITHROMYCIN 500 MG in SODIUM CHLORIDE 0.9% 250 ML IVPB STA (09:09)
[2023-02-02] MEDS ORDERED: PNEUMONIA PROTOCOL UTILIZED 1 EACH MISC PO PRN (09:09)
--- NOTE | 2023-02-02 09:26 | CT ---
EXAMINATION TYPE: CT chest angio for PE CT DLP: 397.2 mGycm, Automated exposure control for dose reduction was used. DATE OF EXAM: 02/02/2023 9:13 AM COMPARISON: Chest radiograph from same day. CLINICAL INDICATION:Male, 67 years old with history of SOB; SOB, syncope TECHNIQUE/CONTRAST: CTA scan of the thorax is performed with IV Contrast, patient injected with 100 mL of Isovue 370, pul monary embolism protocol. MIP images are created and reviewed these are created on a separate workst atcount includes the [facility].. FINDINGS: Pulmonary Artery: There is no evidence for a filling defect within the pulmonary vasculature to sugge st acute pulmonary embolism. The pulmonary artery is of normal size. Lungs/Pleura: No evidence of focal consolidation, or pneumothorax. Trace bilateral pleural effusions. Airway: Large airways are patent. Heart: Heart is within normal limits for size. Coronary artery calcifications are present. Vasculature: No evidence of aortic aneurysm. Mediastinum: No gross evidence of adenopathy. Small hiatal hernia is present. Musculoskeletal: No acute osseous abnormalities Soft Tissues: Unremarkable. Lower neck: No significant findings. Upper Abdomen: Small splenule is noted. Gallstone present. IMPRESSION: 1. No evidence of pulmonary embolism. 2. Trace bilateral pleural effusions. 3. Small hiatal hernia. 4. Cholelithiasis
[2023-02-02] MEDS: CLOPIDOGREL 75 MG TAB PO SCH (11:14)
[2023-02-02] MEDS: LOSARTAN 25 MG TAB PO SCH ×2 (11:14→17:10)
[2023-02-02] MEDS: PANTOPRAZOLE 40 MG TABLET PO SCH (13:54)
[2023-02-02] MEDS: MULTIVITAMINS, THERA 1 EACH TAB PO SCH (13:55)
[2023-02-02] MEDS: CHOLECALCIFEROL 25 MCG (1000 IU) TABLET PO SCH (13:55)
--- NOTE | 2023-02-02 17:06 | CA ---
Transthoracic Echo Report Name: Rad Lozano Age: 67 Gender: M : 1955 Exam Date: 02/02/2023 12:51 Exam Location: [place] [facility] Ht (in): 72 Wt (lb): 180 Ordering Physician: Raphael Villagran MD ([id number]) Attending/Referring Phys: Sparkle [employer] Director Indio Johnston Procedure CPT: Indications: Chest Pain Cardiac Hx: Technical Quality: Fair Contrast 1: Total Dose (mL): Contrast 2: Total Dose (mL): MEASUREMENTS (Male / Female) Normal Values 2D ECHO LV Diastolic Diameter PLAX 4.6 cm 4.2 - 5.9 / 3.9 - 5.3 cm LV Systolic Diameter PLAX 3.3 cm IVS Diastolic Thickness 0.9 cm 0.6 - 1.0 / 0.6 - 0.9 cm LVPW Diastolic Thickness 1.2 cm 0.6 - 1.0 / 0.6 - 0.9 cm LV Relative Wall Thickness 0.5 RV Internal Dim ED PLAX 2.5 cm LVOT Diameter 1.9 cm Aortic Root Diameter 2.7 cm LV Diastolic Volume MOD BP 88.3 cm??? 67 - 155 / 56 - 104 cm??? LV Systolic Volume MOD BP 53.9 cm??? 22 - 58 / 19 - 49 cm??? LV Ejection Fraction MOD BP 39.0 % >= 55 % LV Diastolic Volume MOD 4C 85.0 cm??? LV Systolic Volume MOD 4C 45.7 cm??? LV Ejection Fraction MOD 4C 46.2 % LV Diastolic Length 4C 7.9 cm LV Systolic Length 4C 7.3 cm LV Diastolic Volume MOD 2C 86.1 cm??? LV Systolic Volume MOD 2C 61.1 cm??? LV Ejection Fraction MOD 2C 29.0 % LV Diastolic Length 2C 7.4 cm LV Systolic Length 2C 6.9 cm Ascending Aorta Diameter 3.3 cm DOPPLER AV Peak Velocity 112.3 cm/s AV Peak Gradient 5.0 mmHg AI Peak Velocity 383.8 cm/s AI Peak Gradient 58.9 mmHg AI Pressure Half Time 811.4 ms LVOT Peak Velocity 100.9 cm/s LVOT Peak Gradient 4.1 mmHg AV Area Cont Eq pk 2.6 cm??? MR Peak Velocity 421.3 cm/s MR Peak Gradient 71.0 mmHg Mitral E Point Velocity 77.2 cm/s Mitral A Point Velocity 95.0 cm/s Mitral E to A Ratio 0.8 MV Deceleration Time 184.0 ms MV E' Velocity 5.3 cm/s Mitral E to MV E' Ratio 14.5 TR Peak Velocity 243.6 cm/s TR Peak Gradient 23.7 mmHg Right Ventricular Systolic Press 28.9 mmHg PV Peak Velocity 138.5 cm/s PV Peak Gradient 7.7 mmHg FINDINGS Left Ventricle Normal LV size. Left ventricular ejection fraction is estimated at 45-50 %. Right Ventricle Normal right ventricular size. RVSP= 31mmhg. Right Atrium Normal right atrial size. Left Atrium Normal left atrial size. Mitral Valve Moderate thickening/calcification of the anterior mitral valve leaflet. Moderate MR. Aortic Valve Mild AV sclerosis/calcification. Mild to moderate AI. Tricuspid Valve Structurally normal tricuspid valve. Mild TR. Pulmonic Valve Pulmonic valve not well visualized. No pulmonic regurgitation. Pericardium Normal pericardium. Aorta Normal size aortic root and proximal ascending aorta. CONCLUSIONS Moderate LV systolic dysfunction with an ejection fraction of 45% Anteroapical and anteroseptal hypokinesis Moderate mitral regurgitation Mild to moderate aortic regurgitation Previewed by: Dr. Raphael Villagran MD (Electronically Signed) Final Date: 02 February 2023 17:05
[2023-02-02] MEDS ORDERED: metFORMIN 500 MG TAB PO SCH (17:30)
[2023-02-02] MEDS ORDERED: ATORVASTATIN 80 MG TAB PO SCH (17:30)
[2023-02-02] MEDS ORDERED: ASPIRIN 81 MG PO SCH (17:30)
[2023-02-02] MEDS ORDERED: DEXTROSE 50% SYRINGE 50 ML IVP PRN ×2 (18:04)
--- NOTE | 2023-02-02 18:06 | P.HPIM ---
History of Present Illness H&P Date: 02/02/23 Chief Complaint: Past out This is a pleasant 67-year-old patient who follows with Dr. Cat Pryor. Dat Instructor , ordered an different hospital. In February 2022 patient had cardiac labs here. Requiring 3 stents and then had to be airlifted to [facility]. Patient was unable balloon pump. Subsequently discharged from day. At her baseline otherwise patient other active is walking at least 15 minutes. Prostate patient is watching some television and developed some cough some congested cough and some crackles. No stigmata [address] Luong [facility]. The thyroid could be a viral infection. Same time patient is given IV Lasix. Patient didn't make a lot of urine. And was discharged home around 3:30 in the morning. At home patient I did again make a lot of urine. In coming back from the bathroom felt lightheaded and dizzy then passed out. There is no chest pain and palpitation. No incontinence. No focal weakness. Patient denies any fever and chills. This morning denies respiratory symptoms. Review of systems: GEN.: Tired EYES: None HEENT: None NECK: None RESPIRATORY: As above CARDIOVASCULAR: None GASTROINTESTINAL: None GENITOURINARY: None MUSCULOSKELETAL: None LYMPHATICS: None HEMATOLOGICAL: None PSYCHIATRY: None NEUROLOGICAL: None Past medical history to include: CAD with 3 stents February 2022, diabetes mellitus, hypertension, hyperlipidemia Social history: Patient lives at home with his . No alcohol or smoking Physical examination: VITAL SIGNS: 97.9, 62, 16, 146/77, 96% room air GENERAL: BMI 24.7,. Reclining in bed, awake, comfortable EYES: Pupils equal. Conjunctiva normal. HEENT: External appearance of nose and ears normal, oral cavity grossly normal. NECK: JVD not raised; masses not palpable. HEART: First and second heart sounds are normal; no edema. LUNGS: Respiratory rate normal; clear to auscultation. ABDOMEN: Soft, nontender, liver spleen not palpable, no masses palpable. PSYCH: Alert and oriented x3; mood and affect normal. MUSCULOSKELETAL:No Clubbing/cyanosis;muscles-grossly intact NEUROLOGICAL: Cranial nerves grossly intact; no facial asymmetry, power and sensation grossly intact. LYMPHATICS: No lymph nodes palpable in the axilla and neck INVESTIGATIONS, reviewed in the clinical context: White count 10 hemoglobin 14.1 platelets with 86 sodium 136 potassium 4.6 BUN 18 creatinine 0.87 Overnight 0.015, 0.015. Procalcitonin 0.04 EKG tracing personally reviewed by me-normal sinus rhythm. Poor R-wave progression. Chest x-ray film personally reviewed by me-some left-sided possible infiltrate CT brain cervical spine without contrast: No fracture CT chest angiogram for PE: Negative for PE. All stones. 2-D echocardiogram: EF 45%. Anteroapical and anteroseptal hypokinesis. Moderate mitral regurgitation. [id number] aortic regurgitation. Assessment and plan: -Probably vasovagal syncope from significant diuresis patient following received IV Lasix and [facility]. Rule out other causes -Probable viral pneumonitis. No fever no chills. Normal white count. Normal procalcitonin. Hold off any antibiotics -Chronic congestive heart failure from systolic dysfunction EF 45%, from ischemic cardiomyopathy Toprol-XL 25 mg daily, Cozaar 25 mg twice a day. Add Aldactone -CAD with stents 3 in February 2022 patient follows with target protection specialist out of [address] [place] [address]. Aspirin. Toprol-XL. Cozaar. Plavix. -Moderate mitral regurgitation Follow-up with cardiology -Mild to moderate aortic regurgitation Follow with cardiology -Hyperlipidemia Crestor 40 mg -Diabetes mellitus type 2 on oral hypoglycemic Glucophage. Follow [facility] Cardiology consulted. Discussed with the patient. Home medications resumed. Past Medical History Past Medical History: Diabetes Mellitus, Hyperlipidemia, Hypertension, Myocardial Infarction ([place]) History of Any Multi-Drug Resistant Organisms: None Reported Past Surgical History: No Surgical Hx Reported, Heart Catheterization With Stent Past Anesthesia/Blood Transfusion Reactions: No Reported Reaction Past Psychological History: No Psychological Hx Reported Smoking Status: Never smoker Medications and Allergies Home Medications Medication Instructions Recorded Confirmed Type Aspirin EC [Ecotrin Low Dose] 81 mg PO W/SUPPER 03/20/22 02/02/23 History Cholecalciferol [Vitamin D3 (25 50 mcg PO W/LUNCH 03/20/22 02/02/23 History Mcg = 1000 Iu)] Esomeprazole Magnesium [NexIUM 20 mg PO W/LUNCH 03/20/22 02/02/23 History 24Hr] Multivitamins, Thera [Multivitamin 1 tab PO W/LUNCH 03/20/22 02/02/23 History (formulary)] Rosuvastatin Calcium [Crestor] 40 mg PO W/SUPPER 03/20/22 02/02/23 History metFORMIN HCL [Glucophage] 500 mg PO W/SUPPER 03/20/22 02/02/23 History Clopidogrel [Plavix] 75 mg PO DAILY 02/02/23 02/02/23 History Losartan [Cozaar] 25 mg PO BID-W/MEALS 02/02/23 02/02/23 History Metoprolol Succinate (ER) [Toprol 25 mg PO DAILY 02/02/23 02/02/23 History Xl] Potassium Chloride [Klor-Con M20] 20 meq PO DAILY 02/02/23 02/02/23 History Allergies Allergy/AdvReac Type Severity Reaction Status Date / Time No Known Allergies Allergy Verified 02/02/23 10:25 Physical Exam Vitals: Vital Signs Temp Pulse Resp BP Pulse Ox 02/02/23 05:55 97.9 F 62 16 146/77 96 Intake and Output 02/01/23 02/02/23 02/02/23 22:59 06:59 14:59 Other: Weight 82.554 kg Results CBC & Chem 7: 02/02/23 06:07 02/02/23 06:07 Labs: Abnormal Lab Results - Last 24 Hours (Table) 02/02/23 02/02/23 Range/Units 06:07 06:07 D-Dimer 1.70 H (<0.60) mg/L FEU Sodium 136 L (137-145) mmol/L Glucose 127 H (74-99) mg/dL Total Bilirubin 1.7 H (0.2-1.3) mg/dL
[2023-02-02 18:59] LABS: Glucose,Whole Blood 177 mg/dL (70-110)
[2023-02-02] MEDS: INSULIN ASPART (NovoLOG) 100 UNIT/ML VIAL SQ SCH (19:04)
--- NOTE | 2023-02-02 22:12 | CONS ---
CONSULTATION HISTORY OF PRESENT ILLNESS: Rad is a 67-year-old gentleman with history of coronary artery disease status post prior angioplasty, hypertension, diabetes, dyslipidemia, who presented to hospital having had an episode of syncope. The patient states that he went to [facility] Emergency Room with symptoms of feeling cough, shortness of breath, and not feeling well, went to the ER where they gave him Lasix and sent him home and he was at his home on the commode trying to pass urine and then suddenly passed out. He came back has been suggested that he go to [facility] . At the time of my evaluation, the patient appears comfortable at rest. Denies any shortness of breath or chest pain. Does not have any leg edema, PND, or orthopnea. His syncope seems to be related to the diuretics that he received, it could be vasovagal in origin. The patient has history of coronary artery disease, was admitted to hospital with acute anterior wall myocardial infarction and was transferred to [facility] where he spent several weeks making slow but steady recovery. He has calcified coronaries acutely occluded LAD with a subtotal occlusion of the OM branch and chronic disease in the right coronary artery. An echocardiogram at that time revealed an ejection fraction of 50% and on this admission, his D-dimer is elevated. He underwent a CT scan of the chest that is negative for pulmonary embolism. His troponins are negative. Hemoglobin is normal. Creatinine is normal at 0.8. PAST MEDICAL HISTORY: Significant for coronary artery disease, hypertension, diabetes, dyslipidemia. MEDICATIONS: Medications at home included, 1. Aspirin. 2. Crestor. 3. Plavix. 4. Metoprolol. 5. Glucophage. 6. Losartan. ALLERGIES: There are no known drug allergies. FAMILY HISTORY: Negative for premature coronary artery disease. SOCIAL HISTORY: Negative for smoking, EtOH abuse or drug abuse. REVIEW OF SYSTEMS: HEENT: Unremarkable. CARDIAC: As described above. RESPIRATORY: Negative. GI: Negative. GENITOURINARY: Negative. ALLERGY/IMMUNOLOGY: Negative. SKIN: Negative. MUSCULOSKELETAL: Negative for arthritis. PSYCHOSOCIAL: Negative. DERM: Negative. CONSTITUTIONAL: Negative. ONCOLOGICAL: Negative. SEARCH DEVELOPER: Negative. Rest of the system review is negative. PHYSICAL EXAMINATION: GENERAL: Comfortable at rest. VITAL SIGNS: Stable. NECK: jugular venous distention. Carotid upstroke is normal. There is no bruit. CHEST: Reveals good air entry bilaterally. HEART: Reveals first and second heart sounds. No gallop. No murmur. No rub. ABDOMEN: Soft, nontender. EXTREMITIES: Exam of extremities did not reveal any edema. Peripheral pulses are felt. ASSESSMENT: 1. Syncope, probably vasovagal in origin. 2. Coronary artery disease, status post recent anterior wall myocardial infarction and percutaneous revascularization of the LAD, hospitalization at [facility]. 3. Possible pneumonia. PLAN: Resume the patient's medications. Treat the patient for pneumonia. I will obtain a 2D echo and we will decide on further course of action based on how his symptoms evolve. MMODL / IJN: [id number] /
[2023-02-03 07:18] LABS: Glucose,Whole Blood 110 mg/dL (70-110)
[2023-02-03] MEDS: INSULIN ASPART (NovoLOG) 100 UNIT/ML VIAL SQ SCH (07:27)
--- NOTE | 2023-02-03 07:59 | XR ---
EXAMINATION TYPE: XR chest 2V DATE OF EXAM: 02/03/2023 COMPARISON: 02/02/2023 TECHNIQUE: PA and lateral views submitted. HISTORY: Shortness of breath FINDINGS: The lungs are clear and there is no pneumothorax or focal pneumonia. Minimal blunting of the bilate ral costophrenic angle. Heart size normal and no overt failure. Osseous structures demonstrate hypertrophic and degenerative changes of the spine. Hyperinflation compatible COPD. Atherosclerotic change aorta. IMPRESSION: 1. No acute process. Correlate for COPD and tiny bilateral pleural effusion.
[2023-02-03 08:00] VITALS: BP 144/78; PULSE 69; RESP 16; TEMP 97.7
[2023-02-03] MEDS ORDERED: AZITHROMYCIN 500 MG TAB PO SCH (09:00)
[2023-02-03] MEDS ORDERED: POTASSIUM CHLORIDE ER 20 MEQ TAB.ER PO SCH (09:00)
[2023-02-03] MEDS ORDERED: METOPROLOL SUCCINATE (ER) 25 MG TAB.ER.24H PO SCH (09:00)
[2023-02-03] MEDS: LOSARTAN 25 MG TAB PO SCH (09:20)
[2023-02-03] MEDS: CLOPIDOGREL 75 MG TAB PO SCH (09:20)
[2023-02-03] MEDS: PANTOPRAZOLE 40 MG TABLET PO SCH (09:21)
[2023-02-03] MEDS: MULTIVITAMINS, THERA 1 EACH TAB PO SCH (09:21)
[2023-02-03] MEDS: CHOLECALCIFEROL 25 MCG (1000 IU) TABLET PO SCH (09:21)
--- NOTE | 2023-02-03 12:00 | PN ---
PROGRESS NOTE SUBJECTIVE: Rad is a 67-year-old gentleman, who is admitted to hospital with possible pneumonia and syncope. He has not had any further episodes of syncope since yesterday. Whatever were the acute respiratory illness and illness that caused nausea and vomiting seemed to have resolved. He is currently on aspirin, Lipitor, Plavix, Cozaar, and Toprol-XL. Cardiac enzymes have been negative. An echocardiogram shows mild LV systolic dysfunction with an ejection fraction of 45% with evidence of anteroapical and anteroseptal hypokinesis and moderate mitral regurgitation. I advised the patient to undergo an event monitor, but he does not want to have started here but wishes to see his own international organizer and get it done. SUBJECTIVE: GENERAL: Today, he is comfortable at rest. VITAL SIGNS: Stable. NECK: There is no jugular venous distention. Carotid upstroke is normal. There is no bruit. CHEST: Reveals good air entry bilaterally. HEART: Reveals first and second heart sounds. No gallop. No murmur. No rub. ABDOMEN: Soft, nontender. EXTREMITIES: Did not reveal any edema. Peripheral pulses are felt. ASSESSMENT AND PLAN: Syncope, rule out cardiac causes. Syncope is probably vasovagal in origin. We will do an event monitor and if he has significant ventricular ectopy, might consider referral to EP for an EP study. MMODL / IJN: [id number] /
--- NOTE | 2023-02-03 22:01 | P.DS ---
Providers Date of admission: 02/02/23 09:38 Expected date of discharge: 02/03/23 Attending physician: Adam Rose Consults: 02/02/23 10:17 Consult Physician Urgent Consulting Provider: Raphael Villagran Consult Reason/Comments: Syncope Do you want consulting provider notified?: Yes Primary care physician: Cat Pryor [facility] Course: Chief Complaint: Past out This is a pleasant 67-year-old patient who follows with Dr. Cat Pryor. Home Service Director , ordered an different hospital. In February 2022 patient had cardiac labs here. Requiring 3 stents and then had to be airlifted to [facility]. Patient was unable balloon pump. Subsequently discharged from day. At her baseline otherwise patient other active is walking at least 15 minutes. Prostate patient is watching some television and developed some cough some congested cough and some crackles. No stigmata [address] Luong [facility]. The thyroid could be a viral infection. Same time patient is given IV Lasix. Patient didn't make a lot of urine. And was discharged home around 3:30 in the morning. At home patient I did again make a lot of urine. In coming back from the bathroom felt lightheaded and dizzy then passed out. There is no chest pain and palpitation. No incontinence. No focal weakness. Patient denies any fever and chills. This morning denies respiratory symptoms. February 03: Patient presentation felt to be vasovagal. Doing well. Viral pneumonitis. Discussed with the patient. No antibiotics indicated. Cleared by cardiology. He'll follow-up with his own behavioral health care manager. Past medical history to include: CAD with 3 stents February 2022, diabetes mellitus, hypertension, hyperlipidemia Social history: Patient lives at home with his . No alcohol or smoking Physical examination: VITAL SIGNS: 97.7, 69, 16, 144/78, 97% room air GENERAL: BMI 24.7,. Up in a chair, comfortable EYES: Pupils equal. Conjunctiva normal. HEENT: External appearance of nose and ears normal, oral cavity grossly normal. NECK: JVD not raised; masses not palpable. HEART: First and second heart sounds are normal; no edema. LUNGS: Respiratory rate normal; clear to auscultation. ABDOMEN: Soft, nontender, liver spleen not palpable, no masses palpable. PSYCH: Alert and oriented x3; mood and affect normal. MUSCULOSKELETAL:No Clubbing/cyanosis;muscles-grossly intact INVESTIGATIONS, reviewed in the clinical context: 2-D echocardiogram: EF 45%. Anteroapical and anteroseptal hypokinesis. Moderate mitral regurgitation. [id number] aortic regurgitation. White count 10 hemoglobin 14.1 platelets with 86 sodium 136 potassium 4.6 BUN 18 creatinine 0.87 Overnight 0.015, 0.015. Procalcitonin 0.04 EKG tracing personally reviewed by me-normal sinus rhythm. Poor R-wave progression. Chest x-ray film personally reviewed by me-some left-sided possible infiltrate CT brain cervical spine without contrast: No fracture CT chest angiogram for PE: Negative for PE. All stones. 2-D echocardiogram: EF 45%. Anteroapical and anteroseptal hypokinesis. Moderate mitral regurgitation. [id number]-kc-ubvugjhn aortic regurgitation. Assessment and plan: -Probably vasovagal syncope from significant diuresis patient following received IV Lasix and [facility]. -Probable viral pneumonitis. No fever no chills. Normal white count. Normal procalcitonin. No antibiotics -Chronic congestive heart failure from systolic dysfunction EF 45%, from ischemic cardiomyopathy Toprol-XL 25 mg daily, Cozaar 25 mg twice a day. Aldactone -CAD with stents 3 in February 2022 patient follows with behavioral health care manager out of [address] [place] [address]. Aspirin. Toprol-XL. Cozaar. Plavix. -Moderate mitral regurgitation Follow-up with cardiology -Mild to moderate aortic regurgitation Follow with cardiology -Hyperlipidemia Crestor 40 mg -Diabetes mellitus type 2 on oral hypoglycemic Glucophage. Follow Accu-Cheks Disposition: Home Plan - Discharge Summary Discharge Rx Participant: No New Discharge Prescriptions: Continue Rosuvastatin Calcium [Crestor] 40 mg PO W/SUPPER Multivitamins, Thera [Multivitamin (formulary)] 1 tab PO W/LUNCH Cholecalciferol [Vitamin D3 (25 Mcg = 1000 Iu)] 50 mcg PO W/LUNCH Aspirin EC [Ecotrin Low Dose] 81 mg PO W/SUPPER metFORMIN HCL [Glucophage] 500 mg PO W/SUPPER Metoprolol Succinate (ER) [Toprol XL] 25 mg PO DAILY Losartan [Cozaar] 25 mg PO BID-W/MEALS Potassium Chloride [Klor-Con M20] 20 meq PO DAILY Esomeprazole Magnesium [NexIUM 24Hr] 20 mg PO W/LUNCH Clopidogrel [Plavix] 75 mg PO DAILY Discharge Medication List Aspirin EC [Ecotrin Low Dose] 81 mg PO W/SUPPER 03/20/22 [History] Cholecalciferol [Vitamin D3 (25 Mcg = 1000 Iu)] 50 mcg PO W/LUNCH 03/20/22 [History] Esomeprazole Magnesium [NexIUM 24Hr] 20 mg PO W/LUNCH 03/20/22 [History] Multivitamins, Thera [Multivitamin (formulary)] 1 tab PO W/LUNCH 03/20/22 [History] Rosuvastatin Calcium [Crestor] 40 mg PO W/SUPPER 03/20/22 [History] metFORMIN HCL [Glucophage] 500 mg PO W/SUPPER 03/20/22 [History] Clopidogrel [Plavix] 75 mg PO DAILY 02/02/23 [History] Losartan [Cozaar] 25 mg PO BID-W/MEALS 02/02/23 [History] Metoprolol Succinate (ER) [Toprol XL] 25 mg PO DAILY 02/02/23 [History] Potassium Chloride [Klor-Con M20] 20 meq PO DAILY 02/02/23 [History] Follow up Appointment(s)/Referral(s): dr edgar [Other] - 02/18/23 10:30 am Cat Pryor DO [Primary Care Provider] - 02/06/23 11:30 am Patient Instructions/Handouts: Syncope (DC) Activity/Diet/Wound Care/Special Instructions: dc if ok with cardiology Discharge Disposition: HOME SELF-CARE
== END 2023-02-03 11:33 | disposition home or self-care (01) | DRG 194 ==
LOC: EC 05:54 → 5NMEDONC 09:38
PROVIDERS: ADMIT Hospitalist; ATTEND Hospitalist
DX: J12.9 Viral pneumonia, unspecified (principal); I50.22 Chronic systolic (congestive) heart failure; I25.5 Ischemic cardiomyopathy; T50.2X5A Adverse effect of carbonic-anhydrase inhibitors, benzothiadiazides and other diuretics, initial encounter; I25.10 Atherosclerotic heart disease of native coronary artery without angina pectoris; I11.0 Hypertensive heart disease with heart failure; I08.0 Rheumatic disorders of both mitral and aortic valves; E78.5 Hyperlipidemia, unspecified; E11.9 Type 2 diabetes mellitus without complications; I25.2 Old myocardial infarction; Z79.02 Long term (current) use of antithrombotics/antiplatelets; Z79.82 Long term (current) use of aspirin; Z79.84 Long term (current) use of oral hypoglycemic drugs; Z79.899 Other long term (current) drug therapy; Z95.5 Presence of coronary angioplasty implant and graft
CPT/HCPCS: 36415; 70450; 71046; 71275; 72125; 80053; 83735; 84145; 84484; 85025; 85379; 85610; 85730; 87040; 87449; 87635; 93005; 93306; 96365; 96367; 99285

== ENCOUNTER 2024-04-01 09:14 | Inpatient (IN) | payer MEDICARE ==
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
[2024-04-01 10:36] LABS: Basophils % (A) 0 %; Eosinophils # (A) 0.1 k/uL (0-0.7); Eosinophils % (A) 1 %; HCT 38.3 % (39.0-53.0); HGB 12.6 gm/dL (13.0-17.5); Hypochromasia Slight; Lymphocytes # (A) 0.8 k/uL (1.0-4.8); Lymphocytes % (A) 7 %; MCH 29.1 pg (25.0-35.0); MCHC 32.8 g/dL (31.0-37.0); MCV 88.7 fL (80.0-100.0); Mean Platelet Volume 7.6; Monocytes # (A) 0.3 k/uL (0-1.0); Monocytes % (A) 3 %; Neutrophils # (A) 9.5 k/uL (1.3-7.7); Neutrophils % (A) 88 %; Platelet Count 223 k/uL (150-450); RBC 4.32 m/uL (4.30-5.90); RDW 14.9 % (11.5-15.5); WBC 10.8 k/uL (3.8-10.6)
[2024-04-01 10:48] LABS: ALT 19 U/L (4-49); AST 33 U/L (17-59); African American GFR (CKD) >90 (>60 ml/min/1.73 sqM); Albumin 4.4 g/dL (3.5-5.0); Alkaline Phosphatase 79 U/L (38-126); Amylase 93 U/L (30-110); Anion Gap 9 mmol/L; Blood Urea Nitrogen 16 mg/dL (9-20); Calcium 9.5 mg/dL (8.4-10.2); Carbon Dioxide 24 mmol/L (22-30); Chloride 102 mmol/L (98-107); Glucose 148 mg/dL (74-99); Lipase 125 U/L (23-300); Non-African American GFR(CKD) >90 (>60 ml/min/1.73 sqM); Potassium 4.6 mmol/L (3.5-5.1); Sodium 135 mmol/L (137-145); Total Bilirubin 1.1 mg/dL (0.2-1.3); Total Protein 7.1 g/dL (6.3-8.2)
[2024-04-01 10:55] LABS: Appearance,Urine Clear (Clear); Bilirubin,Urine Negative (Negative); Blood,Urine Negative (Negative); Color,Urine Light Yellow; Glucose,Urine (UA) Negative (Negative); Ketones,Urine Negative (Negative); Leukocyte Esterase,Urine Negative (Negative); Nitrite,Urine Negative (Negative); Protein,Urine Trace (Negative); Specific Gravity,Urine 1.016 (1.001-1.035); Urobilinogen,Urine <2.0 mg/dL (<2.0)
[2024-04-01] MEDS: SODIUM CHLORIDE 0.9% 1,000 ML IV STA (11:10)
--- NOTE | 2024-04-01 12:26 | CT ---
EXAMINATION TYPE: CT abdomen pelvis w con DATE OF EXAM: 04/01/2024 COMPARISON: None HISTORY: ABD PAIN CT DLP: 880.6 mGycm Automated exposure control for dose reduction was used. TECHNIQUE: Helical acquisition of images was performed from the lung bases through the pelvis. CONTRAST: Performed without Oral Contrast and with IV Contrast, patient injected with 100 mL of Isovue 300. Findings: The lung bases are clear. The gallbladder is normal without distention, wall thickening, pericholecystic fluid or gallstones. T here is no biliary ductal dilatation. There is no focal mass or organomegaly involving the liver, pancreas, spleen or adrenal glands. There is no solid renal mass or hydronephrosis and there is homogeneous contrast enhancement of the r enal parenchyma. There is a 4.5 cm x 3.2 cm saccular aneurysm extending anteriorly from the infrarenal abdominal aorta . It contains extensive mural thrombus. There is no definite evidence of rupture or retroperitoneal h ematoma. Contained rupture from an aortic ulceration should be considered as well particularly given the acute mid abdominal pain The bowel loops are normal in caliber and there is no evidence of dilatation or obstruction. No infla mmatory changes are identified in the bowel wall or mesentery. There is no free intraperitoneal air or fluid. No pelvic mass, free fluid, abscess or adenopathy. There is marked prostatic hypertrophy. There is a small right indirect inguinal hernia containing only fat. The osseous structures and soft tissues are intact. IMPRESSION: 1. 4.5 x 3.2 cm saccular infrarenal abdominal aneurysm versus contained rupture from ulceration as de scribed above. 2. Right inguinal hernia containing fat. 3. Marked prostatic hypertrophy. The physician in care of this patient was immediately notified of this important finding by direct phone call on 04/01/2024 at 12:24 PM
[2024-04-01] MEDS: LABETALOL 5 MG/ML VIAL MDV IVP STA (12:36)
[2024-04-01] MEDS: LABETALOL 200 MG in SODIUM CHLORIDE 0.9% 160 ML IV ONE (12:49)
[2024-04-01] MEDS ORDERED: NALOXONE 0.4 MG/ML 1 ML VIAL IV PRN (13:03)
[2024-04-01] MEDS: SODIUM CHLORIDE 0.9% 1,000 ML IV SCH (13:27)
--- NOTE | 2024-04-01 13:39 | P.GSCN ---
History of Present Illness Consult date: 04/01/24 Reason for Consult: Ruptured aneurysm Requesting physician: Deepak Irving History of present illness: This is a pleasant 68-year-old male with a past medical history including coronary artery disease status post MT and stents, hypertension, hyperlipidemia, diabetes mellitus who presented to the emergency department with complaints of abdominal pain. States that the abdominal pain started in the middle of his abd omen about 3 AM he thought that he had to have a bowel movement so he got up to go to the bathroom. He had just passed flatus. Went back to bed however woke up with another episode of pain in the stomach states that it was radiating up towards the epigastric region he had some nausea but no vomiting. States that he still Feeling pressure in his abdomen and reports that is in the mid to lower abdomen at this time. Denies any pain radiating to his back. He denies any shortness of breath or chest pain. He has been afebrile. He had a CT of the abdomen pelvis with contrast reporting a 4.5 x 3.2 cm saccular infrarenal abdominal aneurysm versus contained rupture from ulceration. Vascular surgery was consulted for ruptured abdominal aortic aneurysm. Patient is now stating that he does have a family history of abdominal aortic aneurysm however he has not been told in the past that he had 1. 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 Review of Systems A 14 point review systems was completed all pertinent positives and negatives as stated in the HPI. Past Medical History Past Medical History: Diabetes Mellitus, Hyperlipidemia, Hypertension, Myocardial Infarction ([place]) Last Myocardial Infarction Date:: 2021 History of Any Multi-Drug Resistant Organisms: None Reported Past Surgical History: No Surgical Hx Reported, Heart Catheterization With Stent Past Anesthesia/Blood Transfusion Reactions: No Reported Reaction Date of Last Stent Placement:: 2021 Past Psychological History: No Psychological Hx Reported Smoking Status: Never smoker Past Alcohol Use History: Occasional Past Drug Use History: None Reported Medications and Allergies Home Medications Medication Instructions Recorded Confirmed Type Aspirin EC [Ecotrin Low Dose] 81 mg PO W/SUPPER 03/20/22 04/01/24 History Cholecalciferol [Vitamin D3 (25 50 mcg PO QAM 03/20/22 04/01/24 History Mcg = 1000 Iu)] Esomeprazole Magnesium [NexIUM 20 mg PO QAM 03/20/22 04/01/24 History 24Hr] Multivitamins, Thera [Multivitamin 1 tab PO W/LUNCH 03/20/22 02/02/23 History (formulary)] Rosuvastatin Calcium [Crestor] 40 mg PO W/SUPPER 03/20/22 02/02/23 History metFORMIN HCL [Glucophage] 500 mg PO W/SUPPER 03/20/22 04/01/24 History Clopidogrel [Plavix] 75 mg PO DAILY 02/02/23 02/02/23 History Losartan [Cozaar] 25 mg PO BID-W/MEALS 02/02/23 02/02/23 History Metoprolol Succinate (ER) [Toprol 25 mg PO DAILY 02/02/23 02/02/23 History XL] Potassium Chloride [Klor-Con M20] 20 meq PO DAILY 02/02/23 02/02/23 History Potassium Chloride [Klor-Con 10 ER] 20 meq PO DAILY 04/01/24 04/01/24 History Allergies Allergy/AdvReac Type Severity Reaction Status Date / Time No Known Allergies Allergy Verified 04/01/24 13:19 Surgical - Exam Vital Signs Temp Pulse Resp BP Pulse Ox 98.1 F 74 20 148/102 97 04/01/24 09:16 04/01/24 09:16 04/01/24 09:16 04/01/24 09:16 04/01/24 09:16 - General General appearance: The patient is alert, oriented, appears in no acute distress. HET: Head is normocephalic and atraumatic. Pupils are equal and reactive. Neck: Supple. Heart: Regular. Lungs: Equal expansion, normal respiratory effort. Abdomen: Soft, mild tenderness to palpation in mid to lower abdomen, nondistended. Extremities: Normal skin color and turgor. Palpable bilateral radial and DP pulses. Neurological: No focal deficits. Strength and sensation are grossly intact. Results - Labs 04/01/24 09:30 04/01/24 09:30 Abnormal Lab Results - Last 24 Hours (Table) 04/01/24 04/01/24 04/01/24 Range/Units 09:30 09:30 09:30 WBC 10.8 H (3.8-10.6) k/uL Hgb 12.6 L (13.0-17.5) gm/dL Hct 38.3 L (39.0-53.0) % Neutrophils # 9.5 H (1.3-7.7) k/uL Lymphocytes # 0.8 L (1.0-4.8) k/uL Sodium 135 L (137-145) mmol/L Glucose 148 H (74-99) mg/dL Plasma Lactic Acid Elias (0.7-2.0) mmol/L Urine Protein Trace H (Negative) 04/01/24 Range/Units 09:30 WBC (3.8-10.6) k/uL Hgb (13.0-17.5) gm/dL Hct (39.0-53.0) % Neutrophils # (1.3-7.7) k/uL Lymphocytes # (1.0-4.8) k/uL Sodium (137-145) mmol/L Glucose (74-99) mg/dL Plasma Lactic Acid Elias 2.1 H* (0.7-2.0) mmol/L Urine Protein (Negative) Diabetes panel 04/01/24 Range/Units 09:30 Sodium 135 L (137-145) mmol/L Potassium 4.6 (3.5-5.1) mmol/L Chloride 102 (98-107) mmol/L Carbon Dioxide 24 (22-30) mmol/L BUN 16 (9-20) mg/dL Creatinine 0.82 (0.66-1.25) mg/dL Glucose 148 H (74-99) mg/dL Calcium 9.5 (8.4-10.2) mg/dL AST 33 (17-59) U/L ALT 19 (4-49) U/L Alkaline Phosphatase 79 (38-126) U/L Total Protein 7.1 (6.3-8.2) g/dL Albumin 4.4 (3.5-5.0) g/dL Calcium panel 04/01/24 Range/Units 09:30 Calcium 9.5 (8.4-10.2) mg/dL Albumin 4.4 (3.5-5.0) g/dL Pituitary panel 04/01/24 Range/Units 09:30 Sodium 135 L (137-145) mmol/L Potassium 4.6 (3.5-5.1) mmol/L Chloride 102 (98-107) mmol/L Carbon Dioxide 24 (22-30) mmol/L BUN 16 (9-20) mg/dL Creatinine 0.82 (0.66-1.25) mg/dL Glucose 148 H (74-99) mg/dL Calcium 9.5 (8.4-10.2) mg/dL Adrenal panel 04/01/24 Range/Units 09:30 Sodium 135 L (137-145) mmol/L Potassium 4.6 (3.5-5.1) mmol/L Chloride 102 (98-107) mmol/L Carbon Dioxide 24 (22-30) mmol/L BUN 16 (9-20) mg/dL Creatinine 0.82 (0.66-1.25) mg/dL Glucose 148 H (74-99) mg/dL Calcium 9.5 (8.4-10.2) mg/dL Total Bilirubin 1.1 (0.2-1.3) mg/dL AST 33 (17-59) U/L ALT 19 (4-49) U/L Alkaline Phosphatase 79 (38-126) U/L Total Protein 7.1 (6.3-8.2) g/dL Albumin 4.4 (3.5-5.0) g/dL - Imaging Comments: CT abdomen pelvis with contrast reports 4.5 x 3.2 cm saccular infrarenal abdominal aortic aneurysm versus contained rupture from ulceration as described above. Right inguinal hernia containing fat. Marked prostatic hypertrophy. Assessment and Plan Assessment: 1. Infrarenal saccular abdominal aortic aneurysm, symptomatic 2. Coronary artery disease with history of MT and stents 3. Diabetes mellitus 4. Hypertension 5. Hyperlipidemia Plan: 1. Keep patient n.p.o. 2. Start 2 large bore IV access 3. Stat type and screen, hold 2 units PRBC on standby 4. Abdominal pelvis CT independently reviewed by Dr. Plunkett and Dr. Ch with expanding saccular aneurysm. Plan for urgent endovascular abdominal aortic repair today. Plan discussed with both patient and his significant other who is at the bedside 5. Optimize blood pressures 6. Consult to cardiology, known. Significant cardiac history. 7. Rest of medical management per primary medical team Thank you for this consultation, we will continue to follow. The impression and plan of care has been dictated as directed. I performed a history and examination of this patient, discussed the same with the dictator. I agree with the dictator's note ,documented as a scribe. Any additional findings or plans will be noted.
[2024-04-01] MEDS ORDERED: PROTAMINE SULFATE 10 MG/ML 5 ML VIAL ONE (13:45)
[2024-04-01] MEDS ORDERED: GLYCOPYRROLATE 0.2 MG/ML 2 ML VIAL ONE (13:45)
[2024-04-01] MEDS ORDERED: NEOSTIGMINE 1 MG/ML 10 ML VIAL ONE (13:45)
[2024-04-01] MEDS ORDERED: ceFAZolin 1 GM/50 ML BAG (PMX) ONE (13:45)
[2024-04-01] MEDS ORDERED: SUCCINYLCHOLINE CHLORIDE 200 MG/10 ML VIAL IV ONE (13:45)
[2024-04-01] MEDS ORDERED: HEPARIN SODIUM,PORCINE 10,000 UNIT/ML 1 ML VIAL ONE (13:45)
[2024-04-01] MEDS ORDERED: MIDAZOLAM 2 MG/2 ML VIAL ONE (13:45)
[2024-04-01] MEDS ORDERED: ePHEDrine 50 MG/ML 1 ML VIAL ONE (13:45)
[2024-04-01] MEDS ORDERED: PROPOFOL 10 MG/ML 20 ML VIAL IV ONE (13:45)
[2024-04-01] MEDS ORDERED: fentaNYL (PF) 50 MCG/ML 2 ML AMP ONE (13:45)
[2024-04-01] MEDS ORDERED: ROCURONIUM 10 MG/ML (5 ML VIAL) IV ONE (13:45)
[2024-04-01] MEDS ORDERED: LIDOCAINE 1% INJ 10MG/ML (20 ML MDV) ONE (13:45)
[2024-04-01] MEDS: SODIUM CHLORIDE 0.9% 1,000 ML IV ONE (14:00)
--- NOTE | 2024-04-01 14:06 | P.CRDCN ---
History of Present Illness History of present illness: HISTORY OF PRESENT ILLNESS: This is a 68-year-old male with a past medical history significant for CAD with previous stenting, hypertension, and hyperlipidemia. Patient follows a cardiolo gist out of town. We have been asked to see the patient in consultation for "cardiac history". Patient examined at the bedside in the emergency room. Patient presented to the hospital with a chief complaint of abdominal pain. Patient's spouse is at the bedside and states that he was having lower quadrant abdominal pain this morning which then became higher up in his chest which he became alarmed that he was may be having another heart attack so they came to the emergency room for further evaluation. DIAGNOSTICS: - EKG reveals sinus mechanism with no signs of acute ischemia - CT abdomen pelvis: 4.5 x 3.2 cm saccular infrarenal abdominal aneurysm versus contained rupture from ulceration. Right inguinal hernia containing fat. Marked prostatic hypertrophy. - Laboratory data: WBC 10.8. Hemoglobin 12.6. Platelet count 223. Sodium 135. Sodium 4.6. BUN 16. Creatinine 0.82. Lactic acid 2.1. - Current home cardiac medications include aspirin 81 mg daily, losartan 25 mg twice a day, metoprolol succinate 25 mg daily, Plavix 75 mg daily, rosuvastatin 40 mg with dinner - Most recent echocardiogram obtained in January 2023 revealing ejection fraction 45 to 50%, anterior apical and anterior septal hypokinesis, moderate MR, mild to moderate aortic regurgitation - Cardiac catheterization history: March 2022 revealing calcified coronary arteries, acutely occluded proximal LAD, subtotally occluded first obtuse marginal branch and chronically occluded right PLV with significant disease in the RCA. Successful recannulization of the proximal LAD segment. Patient also had Impella catheter placed. The patient was transferred down to [facility]. The patient states he had additional procedures performed there however he is unsure of exactly what was performed. REVIEW OF SYSTEMS: At the time of my exam: CONSTITUTIONAL: Denies fever or chills. HEENT: Denies blurred vision, vision changes, or eye pain. Denies hemoptysis CARDIOVASCULAR: Denies chest pain. Denies orthopnea. Denies PND. Denies palpitations RESPIRATORY: Denies shortness of breath. GASTROINTESTINAL: Denies abdominal pain. Denies nausea or vomiting. HEMATOLOGIC: Denies bleeding disorders. GENITOURINARY: Denies any blood in urine. SKIN: Denies pruitis. Denies rash. PHYSICAL EXAM: VITAL SIGNS: Reviewed. GENERAL: Well-developed in no acute distress. HEENT: Head is normocephalic. Pupils are equal, round. Sclerae anicteric. Mucous membranes of the mouth are moist. Neck supple. No JVD or thyromegaly LUNGS: Respirations even and unlabored. Lungs essentially clear to auscultation bilaterally. HEART: Regular rate and rhythm. S1 and S2 heard. Systolic murmur noted. ABDOMEN: Soft. Nondistended. Nontender. EXTREMITIES: Normal range of motion. No clubbing or cyanosis. Peripheral pulses intact. No lower extremity edema NEUROLOGIC: Awake and alert. Oriented x 3. ASSESSMENT: Infrarenal saccular abdominal aortic aneurysm Coronary artery disease with previous stenting x 3, last at [facility] in 2021 History of myocardial infarction requiring Impella, 2021 Valvular heart disease including moderate MR and mild to moderate AR Hypertension Hyperlipidemia PLAN: Resume home cardiac medications Patient is scheduled to undergo urgent endovascular abdominal aortic repair today with Dr. Garnett Further recommendations pending patient course Nurse practitioner note has been reviewed by physician. Signing provider agrees with the documented findings, assessment, and plan of care documented by MOUTHPIECE MAKER as a scribe. Past Medical History Past Medical History: Diabetes Mellitus, Hyperlipidemia, Hypertension, Myocardial Infarction ([place]) Last Myocardial Infarction Date:: 2021 History of Any Multi-Drug Resistant Organisms: None Reported Past Surgical History: No Surgical Hx Reported, Heart Catheterization With Stent Past Anesthesia/Blood Transfusion Reactions: No Reported Reaction Date of Last Stent Placement:: 2021 Past Psychological History: No Psychological Hx Reported Smoking Status: Never smoker Past Alcohol Use History: Occasional Past Drug Use History: None Reported Medications and Allergies Home Medications Medication Instructions Recorded Confirmed Type Aspirin EC [Ecotrin Low Dose] 81 mg PO W/SUPPER 03/20/22 04/01/24 History Cholecalciferol [Vitamin D3 (25 50 mcg PO QAM 03/20/22 04/01/24 History Mcg = 1000 Iu)] Esomeprazole Magnesium [NexIUM 20 mg PO QAM 03/20/22 04/01/24 History 24Hr] Multivitamins, Thera [Multivitamin 1 tab PO QAM 03/20/22 04/01/24 History (formulary)] Rosuvastatin Calcium [Crestor] 40 mg PO W/SUPPER 03/20/22 04/01/24 History metFORMIN HCL [Glucophage] 500 mg PO W/SUPPER 03/20/22 04/01/24 History Clopidogrel [Plavix] 75 mg PO QAM 02/02/23 04/01/24 History Losartan [Cozaar] 25 mg PO BID-W/MEALS 02/02/23 04/01/24 History Metoprolol Succinate (ER) [Toprol 25 mg PO DAILY 02/02/23 04/01/24 History XL] Potassium Chloride [Klor-Con 10 ER] 20 meq PO QAM 04/01/24 04/01/24 History Allergies Allergy/AdvReac Type Severity Reaction Status Date / Time No Known Allergies Allergy Verified 04/01/24 13:19 Physical Exam Vitals: Vital Signs Temp Pulse Resp BP Pulse Ox 04/01/24 13:03 77 20 146/86 99 04/01/24 12:53 80 20 145/86 98 04/01/24 12:33 82 20 156/92 97 04/01/24 10:35 74 18 143/98 99 04/01/24 09:16 98.1 F 74 20 148/102 97 Intake and Output 03/31/24 04/01/24 04/01/24 22:59 06:59 14:59 Intake Total 200 Balance 200 Intake: Intake, IV Titration 200 Amount Labetalol 200 mg In 200 Sodium Chloride 0.9% 160 ml @ 2 MG/MIN 120 mls/hr IV .Q1H40M ONE Rx#: [id number] Other: Weight 82.554 kg Results 04/01/24 09:30 04/01/24 09:30 Cardiac Enzymes 04/01/24 Range/Units 09:30 AST 33 (17-59) U/L CBC 04/01/24 Range/Units 09:30 WBC 10.8 H (3.8-10.6) k/uL RBC 4.32 (4.30-5.90) m/uL Hgb 12.6 L (13.0-17.5) gm/dL Hct 38.3 L (39.0-53.0) % Plt Count 223 (150-450) k/uL Comprehensive Metabolic Panel 04/01/24 Range/Units 09:30 Sodium 135 L (137-145) mmol/L Potassium 4.6 (3.5-5.1) mmol/L Chloride 102 (98-107) mmol/L Carbon Dioxide 24 (22-30) mmol/L BUN 16 (9-20) mg/dL Creatinine 0.82 (0.66-1.25) mg/dL Glucose 148 H (74-99) mg/dL Calcium 9.5 (8.4-10.2) mg/dL AST 33 (17-59) U/L ALT 19 (4-49) U/L Alkaline Phosphatase 79 (38-126) U/L Total Protein 7.1 (6.3-8.2) g/dL Albumin 4.4 (3.5-5.0) g/dL Current Medications Generic Name Dose Route Start Last Admin Trade Name Freq PRN Reason Stop Dose Admin Labetalol HCl 200 mg/ Sodium 200 mls @ 120 mls/hr 04/01/24 12:45 04/01/24 13:40 Chloride IV 04/01/24 14:24 6 mg/min .Q1H40M ONE 360 mls/hr Administration Protocol 2 MG/MIN Sodium Chloride 1,000 mls @ 130 mls/hr 04/01/24 13:15 04/01/24 13:27 Saline 0.9% IV 130 mls/hr .Q7H42M XIAO Administration Naloxone HCl 0.2 mg 04/01/24 13:03 Naloxone 0.4 Mg/Ml 1 Ml Vial IV Q2M PRN Opioid Reversal Intake and Output 03/31/24 04/01/24 04/01/24 22:59 06:59 14:59 Intake Total 200 Balance 200 Intake: Intake, IV Titration 200 Amount Labetalol 200 mg In 200 Sodium Chloride 0.9% 160 ml @ 2 MG/MIN 120 mls/hr IV .Q1H40M ONE Rx#: [id number] Other: Weight 82.554 kg Patient Weight 04/02/24 06:59 Weight 82.554 kg 04/01/24 09:30 04/01/24 09:30
[2024-04-01 16:07] LABS: Glucose,Whole Blood 124 mg/dL (70-110)
[2024-04-01] MEDS ORDERED: HYDROcodone/APAP 5-325MG 1 EACH TAB PO PRN (16:23)
--- NOTE | 2024-04-01 16:41 | P.OP ---
Date of Procedure: 04/01/24 Preoperative Diagnosis: Ruptured 4.6 cm saccular infrarenal abdominal aortic aneurysm. Postoperative Diagnosis: Same. Procedure(s) Performed: 1: Ultrasound-guided cannulation femoral artery bilaterally. 2: Stent graft repair ruptured 4.6 cm saccular infrarenal abdominal aortic aneurysm utilizing tube graft. Anesthesia: SUSHILAA Surgeon: Joseph Plunkett Estimated Blood Loss (ml): 50 Pathology: none sent Condition: stable Disposition: floor Indications for Procedure: Patient is a 68-year-old male who presented with complaint of abdominal and back pain to the emergency department. Symptoms were relatively abrupt in onset. CT scan of the abdomen pelvis demonstrated 4.6 cm saccular aneurysm which appears to have a contained rupture. Because of the patient's symptoms the patient was offered stent graft repair as anatomically the patient had appropriate anatomy for stent graft repair. Description of Procedure: Patient was brought to the cardiac catheterization laboratory. He was administered general endotracheal anesthesia delivered by the department of anesthesiology. He received 2 g of intravenously administered Ancef in the perioperative phase. Patient's chest abdomen pelvis and anterior thigh areas were sterilely prepped and draped in the usual manner. Utilizing ultrasound the right common femoral artery was identified. Micropuncture needle was utilized to cannulate the artery. Once cannulated soft micropuncture wire was advanced into the iliac artery. The needle was withdrawn and a micropuncture sheath and dilator were advanced over the guidewire. Guidewire and dilator were withdrawn and a 0.035 inch guidewire was advanced. The micropuncture sheath was exchanged for a 6 [place] sheath. Glidewire was then advanced through the sheath and into the lower thoracic aortic segment. The sheath was withdrawn and 2 Perclose devices were placed, 1 in the 2:00 to 8 o'clock position and the second in the 10:00 to 4 o'clock position. An 8 [place] sheath was then placed over the guidewire. A 5 [place] sheath was placed via the right femoral artery approach in a manner as described above. The patient was systemically heparinized. Marker pigtail catheter was advanced from the left femoral artery over a guidewire. From the right a Lunderquist wire was advanced and positioned in the thoracic aortic knob area. Abdominal aortogram was performed noting the origin of the renal arteries in the infrarenal anatomy. A 25 x 70 mm tube graft was selected. The 8 [place] sheath position in the right femoral artery was removed and the tube graft delivery catheter was advanced over the Lunderquist wire and positioned at the infrarenal aortic segment. It was then deployed. To assure control of any potential endoleak distally a second tube graft measuring 25 x 49 mm was deployed in a manner similar to described above overlapping the distal 2 cm of the previously placed tube graft. Compliant balloon was then utilized to tack the stent graft to the [place] aortic wall. Angiogram via the pigtail was performed which demo nstrated no evidence of endoleak, with normal patency of the renal arterial segments. With the above findings noted the patient was administered 25 mg of protamine. The right femoral sheath was removed and Perclose device was utilized to close the arteriotomy. On the left the sheath was withdrawn and pressure directly applied was utilized to control bleeding and assure hemostasis. Palpable pedal pulses were noted at the completion of the case. Patient tolerated the procedure well, awoke without apparent complication was transferred to the recovery in satisfactory and stable condition. Total contrast volume utilized: 35 mL of Isovue 370.
--- NOTE | 2024-04-01 17:34 | P.HPIM ---
History of Present Illness H&P Date: 04/01/24 Patient is a 68-year-old male with history of CAD with prior stents, diabetes, hypertension, dyslipidemia presenting to the ER with abdominal pain. Per patient, abdominal pain started in the morning at 3 AM and worsened. He denies any diarrhea or constipation. Denies any vomiting, he did have some nausea. Denies any chest pain, shortness of breath, fevers or chills. In the ED, temperature was 98.1, pulse 74, respiratory rate 20, blood pressure 148/102, saturating at 97% on room air. WBC 10.8, hemoglobin 12.6, sodium 135, potassium 4.6, creatinine 0.82, blood glucose 148, lactate 2.1, lipase 125, urinalysis negative for nitrites and leukocyte esterase. Abdomen pelvis CT showed 4.5 x 3.2 cm saccular infrarenal abdominal aneurysm versus contained rupture from ulceration. Right inguinal hernia containing fat, marked prostatic hypertrophy. Patient was seen by cardiology in the ER and subsequently vascular surgery and had urgent endovascular abdominal aortic repair. Patient was taken for repair prior to being seen by primary hospitalist service. Pertinent positives and negatives as discussed in HPI, a complete review of systems was performed and all other systems are negative. Patient seen and examined at bedside in the PACU. Vital signs reviewed General: nontoxic, no distress, appears at stated age Derm: warm, dry, incision sites clean, dry, intact Head: atraumatic, normocephalic, symmetric Eyes: EOMI, no lid lag, anicteric sclera, pupils equal round reactive to light ENT: Nose and ears atraumatic Neck: No thyromegaly, supple Mouth: no lip lesion, mucus membranes moist Cardiovascular: S1S2 reg, no murmur, no edema Lungs: clear to auscultation bilateral, no rhonchi, no rales, no wheeze, no accessory muscle use Abdominal: soft, nontender to palpation, no guarding, no appreciable organomegaly Ext: no gross muscle atrophy, muscle strength muscle strength 5 out of 5 in all 4 extremities, no contractures Neuro: CN II-XII grossly intact Psych: Alert, oriented, appropriate affect Assessment/Plan: Active: Abdominal aortic aneurysm, suspected rupture Status post urgent EVAR History of CAD status post stent Hypertension Dyslipidemia Leukocytosis, likely reactive -Vascular surgery note reviewed -Cardiology note reviewed as well, patient continued on aspirin 81 mg, Plavix 75 mg, atorvastatin 80 mg, metoprolol 25 daily, losartan 25 twice daily Lactic acidosis -Continue lactated Ringer at 100 cc an hour -Repeat lactate GERD -Continue pantoprazole 40 daily Mild hyponatremia, continue to follow -Repeat BMP tomorrow The patient is admitted with an anticipated greater than 2 midnight stay as inpatient status for evaluation of ruptured abdominal aortic aneurysm. Surrogate decision-maker: Spouse CODE STATUS: Full code DVT prophylaxis: SCDs Anticipated discharge date: Pending clinical course Anticipated discharge place: pending clinical course A total of 55 minutes was spent on the care of this complex patient more than 50% of the time was spent in counseling and care coordination. Past Medical History Past Medical History: Diabetes Mellitus, Hyperlipidemia, Hypertension, Myocardial Infarction ([place]) Last Myocardial Infarction Date:: 2021 History of Any Multi-Drug Resistant Organisms: None Reported Past Surgical History: No Surgical Hx Reported, Heart Catheterization With Stent Past Anesthesia/Blood Transfusion Reactions: No Reported Reaction Date of Last Stent Placement:: 2021 Past Psychological History: No Psychological Hx Reported Smoking Status: Never smoker Past Alcohol Use History: Occasional Past Drug Use History: None Reported Medications and Allergies Home Medications Medication Instructions Recorded Confirmed Type Aspirin EC [Ecotrin Low Dose] 81 mg PO W/SUPPER 03/20/22 04/01/24 History Cholecalciferol [Vitamin D3 (25 50 mcg PO QAM 03/20/22 04/01/24 History Mcg = 1000 Iu)] Esomeprazole Magnesium [NexIUM 20 mg PO QAM 03/20/22 04/01/24 History 24Hr] Multivitamins, Thera [Multivitamin 1 tab PO QAM 03/20/22 04/01/24 History (formulary)] Rosuvastatin Calcium [Crestor] 40 mg PO W/SUPPER 03/20/22 04/01/24 History metFORMIN HCL [Glucophage] 500 mg PO W/SUPPER 03/20/22 04/01/24 History Clopidogrel [Plavix] 75 mg PO QAM 02/02/23 04/01/24 History Losartan [Cozaar] 25 mg PO BID-W/MEALS 02/02/23 04/01/24 History Metoprolol Succinate (ER) [Toprol 25 mg PO DAILY 02/02/23 04/01/24 History XL] Potassium Chloride [Klor-Con 10 ER] 20 meq PO QAM 04/01/24 04/01/24 History Allergies Allergy/AdvReac Type Severity Reaction Status Date / Time No Known Allergies Allergy Verified 04/01/24 13:19 Physical Exam Vitals: Vital Signs Temp Pulse Pulse Resp BP BP Pulse Ox 04/01/24 16:22 68 16 115/63 100 04/01/24 16:07 68 16 114/61 100 04/01/24 15:52 96.8 F L 69 16 129/52 100 04/01/24 13:03 77 20 146/86 99 04/01/24 12:53 80 20 145/86 98 04/01/24 12:33 82 20 156/92 97 04/01/24 10:35 74 18 143/98 99 04/01/24 09:16 98.1 F 74 20 148/102 97 Intake and Output 04/01/24 04/01/24 04/01/24 06:59 14:59 22:59 Intake Total 200 0 Balance 200 0 Intake: IV 0 Intake, IV Titration 200 Amount Labetalol 200 mg In 200 Sodium Chloride 0.9% 160 ml @ 2 MG/MIN 120 mls/hr IV .Q1H40M ONE Rx#: [id number] Other: Weight 82.554 kg Results CBC & Chem 7: 04/01/24 09:30 04/01/24 09:30 Labs: Abnormal Lab Results - Last 24 Hours (Table) 04/01/24 04/01/24 04/01/24 Range/Units 09:30 09:30 09:30 WBC 10.8 H (3.8-10.6) k/uL Hgb 12.6 L (13.0-17.5) gm/dL Hct 38.3 L (39.0-53.0) % Neutrophils # 9.5 H (1.3-7.7) k/uL Lymphocytes # 0.8 L (1.0-4.8) k/uL Sodium 135 L (137-145) mmol/L Glucose 148 H (74-99) mg/dL POC Glucose (mg/dL) (70-110) mg/dL Plasma Lactic Acid Elias (0.7-2.0) mmol/L Urine Protein Trace H (Negative) 04/01/24 04/01/24 Range/Units 09:30 16:06 WBC (3.8-10.6) k/uL Hgb (13.0-17.5) gm/dL Hct (39.0-53.0) % Neutrophils # (1.3-7.7) k/uL Lymphocytes # (1.0-4.8) k/uL Sodium (137-145) mmol/L Glucose (74-99) mg/dL POC Glucose (mg/dL) 124 H (70-110) mg/dL Plasma Lactic Acid Elias 2.1 H* (0.7-2.0) mmol/L Urine Protein (Negative)
[2024-04-01] MEDS: LACTATED RINGERS 1,000 ML IV SCH (18:37)
[2024-04-01] MEDS: ASPIRIN 81 MG PO SCH (18:37)
[2024-04-01] MEDS: LOSARTAN 25 MG TAB PO SCH (18:37)
[2024-04-01] MEDS: ATORVASTATIN 80 MG TAB PO SCH (18:37)
[2024-04-02 04:38] LABS: Basophils % (A) 0 %; Eosinophils # (A) 0.1 k/uL (0-0.7); Eosinophils % (A) 1 %; HCT 30.4 % (39.0-53.0); HGB 10.2 gm/dL (13.0-17.5); Lymphocytes % (A) 14 %; MCH 29.6 pg (25.0-35.0); MCHC 33.5 g/dL (31.0-37.0); MCV 88.4 fL (80.0-100.0); Mean Platelet Volume 8.3; Monocytes # (A) 0.4 k/uL (0-1.0); Monocytes % (A) 6 %; Neutrophils # (A) 5.6 k/uL (1.3-7.7); Neutrophils % (A) 78 %; Platelet Count 165 k/uL (150-450); RBC 3.44 m/uL (4.30-5.90); RDW 15.4 % (11.5-15.5); WBC 7.1 k/uL (3.8-10.6)
[2024-04-02 05:28] LABS: African American GFR (CKD) >90 (>60 ml/min/1.73 sqM); Anion Gap 4 mmol/L; Blood Urea Nitrogen 12 mg/dL (9-20); Calcium 8.3 mg/dL (8.4-10.2); Carbon Dioxide 23 mmol/L (22-30); Chloride 105 mmol/L (98-107); Glucose 121 mg/dL (74-99); Non-African American GFR(CKD) >90 (>60 ml/min/1.73 sqM); Potassium 4.2 mmol/L (3.5-5.1); Sodium 132 mmol/L (137-145)
[2024-04-02] MEDS: CLOPIDOGREL 75 MG TAB PO SCH (08:45)
[2024-04-02] MEDS: CHOLECALCIFEROL 25 MCG (1000 IU) TABLET PO SCH (08:45)
[2024-04-02] MEDS: PANTOPRAZOLE 40 MG TABLET PO SCH (08:45)
[2024-04-02] MEDS: METOPROLOL SUCCINATE (ER) 25 MG TAB.ER.24H PO SCH (08:45)
[2024-04-02] MEDS: MULTIVITAMINS, THERA 1 EACH TAB PO SCH (08:45)
[2024-04-02] MEDS: POTASSIUM CHLORIDE ER 20 MEQ TAB.ER PO SCH (08:45)
--- NOTE | 2024-04-02 14:04 | P.PN ---
Subjective Progress Note Date: 04/02/24 Hospital Course: 68-year-old male with history of CAD with prior stents, diabetes, hypertension, dyslipidemia presenting to the ER with abdominal pain. In the ED, temperature was 98.1, pulse 74, respiratory rate 20, blood pressure 148/102, saturating at 97% on room air. WBC 10.8, hemoglobin 12.6, sodium 135, potassium 4.6, creatinine 0.82, blood glucose 148, lactate 2.1, lipase 125, urinalysis negative for nitrites and leukocyte esterase. Abdomen pelvis CT showed 4.5 x 3.2 cm saccular infrarenal abdominal aneurysm versus contained rupture from ulceration. Right inguinal hernia containing fat, marked prostatic hypertrophy. Patient was seen by cardiology in the ER and subsequently vascular surgery and had urgent endovascular abdominal aortic repair. Patient now doing well and recov ering. Pertinent Imaging: Subjective: Patient seen and examined at bedside. No acute events overnight. Denies any new complaints. Able to tolerate oral intake. Pertinent positives and negatives as discussed above, a complete review of systems was performed and all other systems are negative. Vitals Signs Reviewed. General: Nontoxic, no distress, appears at stated age Derm: Warm, dry Head: Atraumatic, normocephalic, symmetric Eyes: EOMI, no lid lag, anicteric sclera Mouth: No lip lesion, mucus membranes moist Cardiovascular: S1S2 reg, no murmur Lungs: CTA bilateral, no rhonchi, no rales, no accessory muscle use Abdominal: Soft, nontender to palpation, no guarding, no appreciable organomegaly Ext: No gross muscle atrophy, no edema, no contractures Neuro: CN II-XI grossly intact, no focal neuro deficits Psych: Alert, oriented, appropriate affect Data Reviewed Today: Pertinent Labs: WBC 7.1, hemoglobin 10.2, sodium 132, creatinine 0.81, lactate 1.6, creatinine 0.81 Imaging: No new imaging Assessment and Plan: Abdominal aortic aneurysm, suspected rupture Status post urgent EVAR Mild normocytic anemia, anticipated History of CAD status post stent Hypertension Dyslipidemia Leukocytosis, likely reactive, resolved -Vascular surgery following -Cardiology following - patient continued on aspirin 81 mg, Plavix 75 mg, atorvastatin 80 mg, metoprolol 25 daily, losartan 25 twice daily Lactic acidosis, resolved -Patient tolerating oral intake, will discontinue IV fluids GERD -Continue pantoprazole 40 daily Mild hyponatremia, continue to follow -Repeat BMP tomorrow DVT ppx: SCDs Code status: Full code Anticipated discharge place: Pending clinical course Anticipated discharge time: Pending clinical course Objective - Vital Signs Vital signs: Vital Signs Temp 98.4 F 04/02/24 11:17 Pulse 56 L 04/02/24 11:17 Resp 16 04/02/24 11:17 BP 113/69 04/02/24 11:17 Pulse Ox 97 04/02/24 11:17 FiO2 Intake & Output 04/01/24 04/02/24 04/02/24 18:59 06:59 18:59 Intake Total 400 240 Output Total 564 Balance 400 -564 240 Weight 82.554 kg 86.8 kg Intake: IV 200 Intake, IV Titration 200 Amount Labetalol 200 mg In 200 Sodium Chloride 0.9% 160 ml @ 2 MG/MIN 120 mls/hr IV .Q1H40M ONE Rx#: [id number] Oral 240 Output: Urine 400 Post Void Residual 164 Other: Voiding Method Indwelling Catheter Toilet # Voids 3 - Labs CBC & Chem 7: 04/02/24 04:12 04/02/24 04:12 Labs: Abnormal Lab Results - Last 24 Hours (Table) 04/01/24 04/01/24 04/01/24 Range/Units 16:06 18:34 21:27 RBC (4.30-5.90) m/uL Hgb (13.0-17.5) gm/dL Hct (39.0-53.0) % Sodium (137-145) mmol/L Glucose (74-99) mg/dL POC Glucose (mg/dL) 124 H (70-110) mg/dL Plasma Lactic Acid Elias 2.5 H* 4.3 H* (0.7-2.0) mmol/L Calcium (8.4-10.2) mg/dL 04/02/24 04/02/24 04/02/24 Range/Units 00:11 04:12 04:12 RBC 3.44 L (4.30-5.90) m/uL Hgb 10.2 L (13.0-17.5) gm/dL Hct 30.4 L (39.0-53.0) % Sodium 132 L (137-145) mmol/L Glucose 121 H (74-99) mg/dL POC Glucose (mg/dL) (70-110) mg/dL Plasma Lactic Acid Elias 2.5 H* (0.7-2.0) mmol/L Calcium 8.3 L (8.4-10.2) mg/dL
[2024-04-02] MEDS ORDERED: DEXTROSE 50% SYRINGE 50 ML IVP PRN ×2 (17:08)
[2024-04-02 17:15] LABS: Glucose,Whole Blood 136 mg/dL (70-110)
[2024-04-02] MEDS: INSULIN ASPART (NovoLOG) 100 UNIT/ML VIAL SQ SCH (17:48)
[2024-04-02 19:57] VITALS: RESP 18
[2024-04-02 20:06] LABS: Glucose,Whole Blood 186 mg/dL (70-110)
--- NOTE | 2024-04-02 20:54 | P.PN ---
Subjective Progress Note Date: 04/02/24 HISTORY OF PRESENT ILLNESS: This is a 68-year-old male with a past medical history significant for CAD with previous stenting, hypertension, and hyperlipidemia. Patient follows a low heel builder out of town. We have been asked to see the patient in consultation for "cardiac history". Patient examined at the bedside in the emergency room. Patient presented to the hospital with a chief complaint of abdominal pain. Patient's spouse is at the bedside and states that he was having lower quadrant abdominal pain this morning which then became higher up in his chest which he became alarmed that he was may be having another heart attack so they came to the emergency room for further evaluation. Progress note April 02, 2024 Patient seen and examined at bedside this a.m. with no concerns of chest pain chest pressure shortness of breath. He does not have any concerns of congestive heart failure or any new arrhythmias DIAGNOSTICS: - EKG reveals sinus mechanism with no signs of acute ischemia - CT abdomen pelvis: 4.5 x 3.2 cm saccular infrarenal abdominal aneurysm versus contained rupture from ulceration. Right inguinal hernia containing fat. Marked prostatic hypertrophy. - Laboratory data: WBC 10.8. Hemoglobin 12.6. Platelet count 223. Sodium 135. Sodium 4.6. BUN 16. Creatinine 0.82. Lactic acid 2.1. - Current home cardiac medications include aspirin 81 mg daily, losartan 25 mg t wice a day, metoprolol succinate 25 mg daily, Plavix 75 mg daily, rosuvastatin 40 mg with dinner - Most recent echocardiogram obtained in January 2023 revealing ejection fraction 45 to 50%, anterior apical and anterior septal hypokinesis, moderate MR, mild to moderate aortic regurgitation - Cardiac catheterization history: March 2022 revealing calcified coronary arteries, acutely occluded proximal LAD, subtotally occluded first obtuse marginal branch and chronically occluded right PLV with significant disease in the RCA. Successful recannulization of the proximal LAD segment. Patient also had Impella catheter placed. The patient was transferred down to [facility]. The patient states he had additional procedures performed there however he is unsure of exactly what was performed. PHYSICAL EXAM: VITAL SIGNS: Reviewed. GENERAL: Well-developed in no acute distress. HEENT: Head is normocephalic. Pupils are equal, round. Sclerae anicteric. Mucous membranes of the mouth are moist. Neck supple. No JVD or thyromegaly LUNGS: Respirations even and unlabored. Lungs essentially clear to auscultation bilaterally. HEART: Regular rate and rhythm. S1 and S2 heard. Systolic murmur noted. ABDOMEN: Soft. Nondistended. Nontender. EXTREMITIES: Normal range of motion. No clubbing or cyanosis. Peripheral pulses intact. No lower extremity edema NEUROLOGIC: Awake and alert. Oriented x 3. ASSESSMENT: Infrarenal saccular abdominal aortic aneurysm with rupture s/p endovascular rep air with Dr Plunkett Coronary artery disease with previous stenting x 3, last at [facility] in 2021 History of myocardial infarction requiring Impella, 2021 Valvular heart disease including moderate MR and mild to moderate AR Hypertension Hyperlipidemia PLAN: Patient is otherwise stable from cardiovascular standpoint aspirin Plavix as per vascular surgery recommendation Continue low-dose beta-beni Continue Lipitor Patient is cleared from cardiovascular standpoint otherwise. Would recommend outpatient follow-up with primary low heel builder in next 1 to 2 weeks Cardiology team will sign off. Please reconsult us in case of any question. Objective - Vital Signs Vital signs: Vital Signs Temp 98.1 F 04/02/24 19:56 Pulse 82 04/02/24 19:56 Resp 18 04/02/24 19:56 BP 131/74 04/02/24 19:56 Pulse Ox 98 04/02/24 19:56 FiO2 Intake & Output 04/02/24 04/02/24 04/03/24 06:59 18:59 06:59 Intake Total 360 Output Total 564 2450 Balance -564 -2090 Weight 86.8 kg Intake: Oral 360 Output: Urine 400 2450 Straight 900 Post Void Residual 164 Other: Voiding Method Indwelling Catheter Toilet Toilet # Voids 1 - Labs CBC & Chem 7: 04/02/24 04:12 04/02/24 04:12 Labs: Abnormal Lab Results - Last 24 Hours (Table) 04/01/24 04/02/24 04/02/24 Range/Units 21:27 00:11 04:12 RBC 3.44 L (4.30-5.90) m/uL Hgb 10.2 L (13.0-17.5) gm/dL Hct 30.4 L (39.0-53.0) % Sodium (137-145) mmol/L Glucose (74-99) mg/dL POC Glucose (mg/dL) (70-110) mg/dL Plasma Lactic Acid Elias 4.3 H* 2.5 H* (0.7-2.0) mmol/L Calcium (8.4-10.2) mg/dL 04/02/24 04/02/24 04/02/24 Range/Units 04:12 17:14 20:05 RBC (4.30-5.90) m/uL Hgb (13.0-17.5) gm/dL Hct (39.0-53.0) % Sodium 132 L (137-145) mmol/L Glucose 121 H (74-99) mg/dL POC Glucose (mg/dL) 136 H 186 H (70-110) mg/dL Plasma Lactic Acid Elias (0.7-2.0) mmol/L Calcium 8.3 L (8.4-10.2) mg/dL
[2024-04-03 06:21] LABS: Glucose,Whole Blood 157 mg/dL (70-110)
[2024-04-03 06:32] LABS: Basophils % (A) 0 %; Eosinophils # (A) 0.1 k/uL (0-0.7); Eosinophils % (A) 1 %; HCT 31.6 % (39.0-53.0); HGB 10.4 gm/dL (13.0-17.5); Hypochromasia Slight; Lymphocytes % (A) 11 %; MCH 29.2 pg (25.0-35.0); MCHC 33.1 g/dL (31.0-37.0); MCV 88.4 fL (80.0-100.0); Mean Platelet Volume 7.5; Monocytes # (A) 0.6 k/uL (0-1.0); Monocytes % (A) 7 %; Neutrophils # (A) 7.3 k/uL (1.3-7.7); Neutrophils % (A) 80 %; Platelet Count 190 k/uL (150-450); RBC 3.57 m/uL (4.30-5.90); RDW 15.1 % (11.5-15.5); WBC 9.2 k/uL (3.8-10.6)
[2024-04-03 06:56] LABS: African American GFR (CKD) >90 (>60 ml/min/1.73 sqM); Anion Gap 8 mmol/L; Blood Urea Nitrogen 10 mg/dL (9-20); Calcium 8.8 mg/dL (8.4-10.2); Carbon Dioxide 22 mmol/L (22-30); Chloride 102 mmol/L (98-107); Glucose 124 mg/dL (74-99); Non-African American GFR(CKD) >90 (>60 ml/min/1.73 sqM); Potassium 4.1 mmol/L (3.5-5.1); Sodium 132 mmol/L (137-145)
[2024-04-03 08:09] VITALS: BP 127/82; PULSE 80; TEMP 97.6
--- NOTE | 2024-04-03 09:38 | P.PN ---
Subjective Progress Note Date: 04/03/24 Principal diagnosis: Ruptured abdominal aortic aneurysm Objective - Vital Signs Vital signs: Vital Signs Temp 97.6 F 04/03/24 07:55 Pulse 80 04/03/24 07:56 Resp 18 04/03/24 07:55 BP 127/82 04/03/24 07:55 Pulse Ox 96 04/03/24 07:55 FiO2 Intake & Output 04/02/24 04/03/24 04/03/24 18:59 06:59 18:59 Intake Total 360 120 Output Total 2450 1300 800 Balance -2090 -1300 -680 Weight 85.2 kg Intake: Oral 360 120 Output: Urine 2450 800 Straight 900 Stool 1300 Other: Voiding Method Toilet Toilet Indwelling Catheter # Voids 1 - Exam Patient is awake and alert, sitting in a chair. He expresses disappointment that he went into postoperative urinary retention and currently has a Ellis draining. Otherwise he feels well. The pain which brought him to the hospital is completely absent. He is tolerating liquids without nausea or vomiting. - Labs CBC & Chem 7: 04/03/24 05:41 04/03/24 05:41 Labs: Abnormal Lab Results - Last 24 Hours (Table) 04/02/24 04/02/24 04/03/24 Range/Units 17:14 20:05 05:41 RBC 3.57 L (4.30-5.90) m/uL Hgb 10.4 L (13.0-17.5) gm/dL Hct 31.6 L (39.0-53.0) % Sodium (137-145) mmol/L Glucose (74-99) mg/dL POC Glucose (mg/dL) 136 H 186 H (70-110) mg/dL 04/03/24 04/03/24 Range/Units 05:41 06:20 RBC (4.30-5.90) m/uL Hgb (13.0-17.5) gm/dL Hct (39.0-53.0) % Sodium 132 L (137-145) mmol/L Glucose 124 H (74-99) mg/dL POC Glucose (mg/dL) 157 H (70-110) mg/dL Assessment and Plan Assessment: 1: Status post endovascular repair abdominal aortic aneurysm. 2: Postoperative urinary retention. Plan: 1: Surgically the patient is stable for discharge from the hospital and office follow-up. I did give the patient my card and indicated would like to see him in the next 10 to 14 days. 2: Will start Flomax and consult urology. Leg bag ordered in anticipation of the need for Ellis catheter as an outpatient. 3: Time with Patient: Less than 30
--- NOTE | 2024-04-03 10:36 | P.GSCN ---
History of Present Illness Consult date: 04/03/24 History of present illness: 68 yo male 48 hour post abd anuerysm repair. He had post op retention. We were asked to see the patient. He denies previous voiding issues. He has not been on any urologic medications in the past He has never seen a urologist. He deenies incontinence,hematuria, uti or frequency. He has a cath inplace He is going home today. He was just started on flomax today. Review of Systems All systems: negative - Constitutional Denies fever, Denies weight loss - EENT Eyes: denies blurred vision Ears, nose, mouth and throat: Denies dysphagia - Cardiovascular Denies chest pain, Denies shortness of breath - Respiratory Denies cough, Denies 7 - Gastrointestinal Reports as per HPI - Genitourinary Denies dysuria, Denies hematuria - Integumentary Denies rash, Denies unusual bruising - Neurological Denies headaches, Denies syncope - Hematologic/Lymphatic Denies easy bleeding, Denies easy bruising Past Medical History Past Medical History: Diabetes Mellitus, Hyperlipidemia, Hypertension, Sam cardial Infarction ([place]) Last Myocardial Infarction Date:: 2021 History of Any Multi-Drug Resistant Organisms: None Reported Past Surgical History: No Surgical Hx Reported, Heart Catheterization With Stent Past Anesthesia/Blood Transfusion Reactions: No Reported Reaction Date of Last Stent Placement:: 2021 Past Psychological History: No Psychological Hx Reported Smoking Status: Never smoker Past Alcohol Use History: Occasional Past Drug Use History: None Reported Medications and Allergies Home Medications Medication Instructions Recorded Confirmed Type Aspirin EC [Ecotrin Low Dose] 81 mg PO W/SUPPER 03/20/22 04/01/24 History Cholecalciferol [Vitamin D3 (25 50 mcg PO QAM 03/20/22 04/01/24 History Mcg = 1000 Iu)] Esomeprazole Magnesium [NexIUM 20 mg PO QAM 03/20/22 04/01/24 History 24Hr] Multivitamins, Thera [Multivitamin 1 tab PO QAM 03/20/22 04/01/24 History (formulary)] Rosuvastatin Calcium [Crestor] 40 mg PO W/SUPPER 03/20/22 04/01/24 History metFORMIN HCL [Glucophage] 500 mg PO W/SUPPER 03/20/22 04/01/24 History Clopidogrel [Plavix] 75 mg PO QAM 02/02/23 04/01/24 History Losartan [Cozaar] 25 mg PO BID-W/MEALS 02/02/23 04/01/24 History Metoprolol Succinate (ER) [Toprol 25 mg PO DAILY 02/02/23 04/01/24 History XL] Potassium Chloride [Klor-Con 10 ER] 20 meq PO QAM 04/01/24 04/01/24 History Tamsulosin [Flomax] 0.4 mg PO DAILY #60 cap 04/03/24 Rx Allergies Allergy/AdvReac Type Severity Reaction Status Date / Time No Known Allergies Allergy Verified 04/01/24 13:19 Surgical - Exam Vital Signs Temp Pulse Resp BP Pulse Ox 98.1 F 74 20 148/102 97 04/01/24 09:16 04/01/24 09:16 04/01/24 09:16 04/01/24 09:16 04/01/24 09:16 - General well developed, well nourished, no distress - Eyes normal ocular movement, no icteric - ENT no hearing loss, no congestion - Neck no masses, trachea midline - Respiratory normal respiratory effort, clear to auscultation - Abdomen Abdomen: soft, non tender, no guarding, no rigid, no rebound - Integumentary no rash, no abnormal pigmentation - Neurologic no disoriented, no combative - Psychiatric oriented to time, oriented to person, oriented to place, speech is normal, memory intact Results - Labs 04/03/24 05:41 04/03/24 05:41 Abnormal Lab Results - Last 24 Hours (Table) 04/02/24 04/02/24 04/03/24 Range/Units 17:14 20:05 05:41 RBC (4.30-5.90) m/uL Hgb (13.0-17.5) gm/dL Hct (39.0-53.0) % Sodium (137-145) mmol/L Glucose (74-99) mg/dL POC Glucose (mg/dL) 136 H 186 H (70-110) mg/dL Hemoglobin A1c 7.0 H (<=6.0) % 04/03/24 04/03/24 04/03/24 Range/Units 05:41 05:41 06:20 RBC 3.57 L (4.30-5.90) m/uL Hgb 10.4 L (13.0-17.5) gm/dL Hct 31.6 L (39.0-53.0) % Sodium 132 L (137-145) mmol/L Glucose 124 H (74-99) mg/dL POC Glucose (mg/dL) 157 H (70-110) mg/dL Hemoglobin A1c (<=6.0) % Diabetes panel 04/03/24 04/03/24 Range/Units 05:41 05:41 Sodium 132 L (137-145) mmol/L Potassium 4.1 (3.5-5.1) mmol/L Chloride 102 (98-107) mmol/L Carbon Dioxide 22 (22-30) mmol/L BUN 10 (9-20) mg/dL Creatinine 0.78 (0.66-1.25) mg/dL Glucose 124 H (74-99) mg/dL Hemoglobin A1c 7.0 H (<=6.0) % Calcium 8.8 (8.4-10.2) mg/dL Calcium panel 04/03/24 Range/Units 05:41 Calcium 8.8 (8.4-10.2) mg/dL Pituitary panel 04/03/24 Range/Units 05:41 Sodium 132 L (137-145) mmol/L Potassium 4.1 (3.5-5.1) mmol/L Chloride 102 (98-107) mmol/L Carbon Dioxide 22 (22-30) mmol/L BUN 10 (9-20) mg/dL Creatinine 0.78 (0.66-1.25) mg/dL Glucose 124 H (74-99) mg/dL Calcium 8.8 (8.4-10.2) mg/dL Adrenal panel 04/03/24 Range/Units 05:41 Sodium 132 L (137-145) mmol/L Potassium 4.1 (3.5-5.1) mmol/L Chloride 102 (98-107) mmol/L Carbon Dioxide 22 (22-30) mmol/L BUN 10 (9-20) mg/dL Creatinine 0.78 (0.66-1.25) mg/dL Glucose 124 H (74-99) mg/dL Calcium 8.8 (8.4-10.2) mg/dL Assessment and Plan Assessment: Ipression: post op urianry retnetion. Significant cardicac and peripheral vascular disease. DM Plan: c/w catheter. Home with catheter. Begin on flomax. I will have the patient seen in the office for catheter removal on thursday for another voiding trial this has been discussed at length with the patient.
[2024-04-03] MEDS: TAMSULOSIN 0.4 MG CAP.ER.24H PO STA (11:18)
--- NOTE | 2024-04-03 11:28 | P.DS ---
Providers Date of admission: 04/01/24 13:06 Expected date of discharge: 04/03/24 Attending physician: Fabian Douglas MD Consults: 04/01/24 13:03 Consult Physician Stat Consulting Provider: Joseph Plunkett Consult Reason/Comments: ruptured aneurysm Do you want consulting provider notified?: Already Contacted 04/03/24 09:30 Consult Physician Routine Consulting Provider: Da Petty Consult Reason/Comments: Postoperative urinary retention Do you want consulting provider notified?: Yes Primary care physician: Cat Pryor Hospital Course: Discharge Diagnosis: Abdominal aortic aneurysm, suspected rupture Status post urgent EVAR Mild normocytic anemia, anticipated History of CAD status post stent Hypertension Dyslipidemia Leukocytosis, likely reactive Type 2 diabetes Lactic acidosis GERD Mild hyponatremia Postop urinary retention Hospital Course: 68-year-old male with history of CAD with prior stents, diabetes, hypertension, dyslipidemia presenting to the ER with abdominal pain. In the ED, temperature was 98.1, pulse 74, respiratory rate 20, blood pressure 148/102, saturating at 97% on room air. WBC 10.8, hemoglobin 12.6, sodium 135, potassium 4.6, creatinine 0.82, blood glucose 148, lactate 2.1, lipase 125, urinalysis negative for nitrites and leukocyte esterase. Abdomen pelvis CT showed 4.5 x 3.2 cm saccular infrarenal abdominal aneurysm versus contained rupture from ulceration. Right inguinal hernia containing fat, marked prostatic hypertrophy. Patient was seen by cardiology in the ER and subsequently vascular surgery and had urgent endovascular abdominal aortic repair. Course complicated by urinary retention. Urology also consulted. Patient started on Flomax. Patient will be discharged with Cadena catheter, follow-up outpatient with urology. Also follow- up allergy and vascular surgery. Patient seen and examined at bedside. Vital signs reviewed and stable. General: Nontoxic, no distress, appears at stated age, Cadena catheter in place. Derm: Warm, dry Head: Atraumatic, normocephalic, symmetric Eyes: EOMI, no lid lag, anicteric sclera Mouth: No lip lesion, mucus membranes moist Cardiovascular: S1S2 reg, no murmur Lungs: CTA bilateral, no rhonchi, no rales, no accessory muscle use Abdominal: Soft, nontender to palpation, no guarding, no appreciable organomegaly Ext: No gross muscle atrophy, no edema, no contractures Neuro: CN II-XI grossly intact, no focal neuro deficits Psych: Alert, oriented, appropriate affect A total of 33 minutes of time were spent preparing this complex discharge summary. Patient was discharged on 04/03/2024 at 1032. Patient Condition at Discharge: Stable Plan - Discharge Summary New Discharge Prescriptions: New Tamsulosin [Flomax] 0.4 mg PO DAILY #60 cap Continue Rosuvastatin Calcium [Crestor] 40 mg PO W/SUPPER Multivitamins, Thera [Multivitamin (formulary)] 1 tab PO QAM Cholecalciferol [Vitamin D3 (25 Mcg = 1000 Iu)] 50 mcg PO QAM Aspirin EC [Ecotrin Low Dose] 81 mg PO W/SUPPER metFORMIN HCL [Glucophage] 500 mg PO W/SUPPER Metoprolol Succinate (ER) [Toprol XL] 25 mg PO DAILY Losartan [Cozaar] 25 mg PO BID-W/MEALS Esomeprazole Magnesium [NexIUM 24Hr] 20 mg PO QAM Clopidogrel [Plavix] 75 mg PO QAM Potassium Chloride [Klor-Con 10 ER] 20 meq PO QAM Discharge Medication List Aspirin EC [Ecotrin Low Dose] 81 mg PO W/SUPPER 03/20/22 [History] Cholecalciferol [Vitamin D3 (25 Mcg = 1000 Iu)] 50 mcg PO QAM 03/20/22 [History] Esomeprazole Magnesium [NexIUM 24Hr] 20 mg PO QAM 03/20/22 [History] Multivitamins, Thera [Multivitamin (formulary)] 1 tab PO QAM 03/20/22 [History] Rosuvastatin Calcium [Crestor] 40 mg PO W/SUPPER 03/20/22 [History] metFORMIN HCL [Glucophage] 500 mg PO W/SUPPER 03/20/22 [History] Clopidogrel [Plavix] 75 mg PO QAM 02/02/23 [History] Losartan [Cozaar] 25 mg PO BID-W/MEALS 02/02/23 [History] Metoprolol Succinate (ER) [Toprol XL] 25 mg PO DAILY 02/02/23 [History] Potassium Chloride [Klor-Con 10 ER] 20 meq PO QAM 04/01/24 [History] Tamsulosin [Flomax] 0.4 mg PO DAILY #60 cap 04/03/24 [Rx] Follow up Appointment(s)/Referral(s): Arlette Pool MD [STAFF PHYSICIAN] - 1 Week Da Petty MD [STAFF PHYSICIAN] - 1 Week Trevon Carballo MD [STAFF PHYSICIAN] - 04/06/24 (catheter removal) Joseph Plunkett DO [Doctor of Osteopathic Medicine] - 1 Week Cat Pryor DO [Primary Care Provider] - 1-2 days Patient Instructions/Handouts: Urinary Retention in Men (GEN), Cadena Catheter Placement and Care (DC), Endovascular Aneurysm Repair of Abdominal Aorta (DC) Activity/Diet/Wound Care/Special Instructions: Please see your PCP, Cardiology and vascular surgery. Please see urology if you are going home with cadena catheter. Discharge Disposition: HOME SELF-CARE
--- NOTE | 2024-04-22 15:01 | CDI ---
Documentation Clarification Form Date: 04/22/2024 02:40:57 PM From: Bess Lomeli Admit Date: 04/01/2024 01:06:00 PM Patient Name: Rad Lozano Visit Number: [id number] Discharge Date: 04/03/2024 11:58:00 AM ATTENTION: The Clinical Documentation Specialists (CDI) and [facility] Coding Staff appreciate your assistance in clarifying documentation. Please respond to the clarification below the line at the bottom and electronically sign. The CDI & [facility] Coding staff will review the response and follow-up if needed. Please note: Queries are made part of the Legal Health Record. If you have any questions, please contact the author of this message via ITS. Doctor/Provider: Fabian Douglas Postop urinary retention is documented in the Discharge Summary 04/03/24. Additional clarification regarding urinary retention is requested. Patients Admitting and post-op Diagnosis: abdominal aortic aneurysm, suspected rupture Procedure performed: urgent EVAR History/Risk Factors: patient is a 68 year old male with a history of CAD with stents, diabetes, hypertension, dyslipidemia, GERD, and [place]. Clinical Indicators: surgical consultation on 04/03/24 states the patient had post op urine retention. He denies previous voiding issues. He has not been on any urology medications in the past. He has never seen a urologist. He denies incontinence, hematuria, UTIs, or frequency. Consult note 04/01 indicates there is marked prostatic hypertrophy. Treatment: placement of a cadena cath. Started on Flomax. Expected to be seen in the outpatient office for removal of cadena catheter and voiding trial. Please clarify if urinary retention is a complication of the surgical procedure? [ ] Yes- urinary retention is a complication of the surgical procedure [ ] No- urinary retention is an expected outcome of the surgical procedure [x ] No- urinary retention is related to the patients age, and comorbid conditions and not a complication of the procedure [ ] Other, please specify [ ] Unable to determine MTDD
--- NOTE | 2024-04-27 23:29 | IR ---
EXAMINATION TYPE: IR endorepair dscnd thor aorta DATE OF EXAM: 04/01/2024 3:57 PM COMPARISON: Pre Operative Images if available both CT/MRI or plain film CLINICAL INDICATION: Male, 68 years old with history of AAA repair, 13.4m/DAP56.0338, Bilateral groin closures, perc; TECHNIQUE: IR endorepair dscnd thor aorta, multiple fluoroscopic images provided for procedure. Total fluoroscopy time: 13.4 minutes Total submitted images to PACS: 100 DAP: [id number] mGym2 Gycm2 uGym2 cGycm2 or equivalent. FINDINGS: IMPRESSION: 1. Report was generated for administrative purposes only. 2. Please see the operative/procedural note for further details. [facility], , 04/27/2024 11:26 PM
== END 2024-04-03 11:58 | disposition home or self-care (01) | DRG 269 ==
LOC: EC 09:14 → 2SICU 13:06 → 3SCARD 15:27
PROVIDERS: ADMIT Student in an Organized Health Care Education/Training Program; ATTEND Student in an Organized Health Care Education/Training Program
PROC: 04V03DZ Restriction of Abdominal Aorta with Intraluminal Device, Percutaneous Approach (ICD-10-PCS; principal; 2024-04-01 17:30)
DX: I71.33 Infrarenal abdominal aortic aneurysm, ruptured (principal); E87.1 Hypo-osmolality and hyponatremia; E87.20 Acidosis, unspecified; I25.10 Atherosclerotic heart disease of native coronary artery without angina pectoris; I08.0 Rheumatic disorders of both mitral and aortic valves; I10 Essential (primary) hypertension; E78.5 Hyperlipidemia, unspecified; K40.90 Unilateral inguinal hernia, without obstruction or gangrene, not specified as recurrent; K21.9 Gastro-esophageal reflux disease without esophagitis; E11.51 Type 2 diabetes mellitus with diabetic peripheral angiopathy without gangrene; D64.9 Anemia, unspecified; N40.1 Benign prostatic hyperplasia with lower urinary tract symptoms; R33.8 Other retention of urine; I25.2 Old myocardial infarction; Z95.5 Presence of coronary angioplasty implant and graft; Z79.899 Other long term (current) drug therapy; Z79.84 Long term (current) use of oral hypoglycemic drugs; Z79.02 Long term (current) use of antithrombotics/antiplatelets; Z79.82 Long term (current) use of aspirin
CPT/HCPCS: 34701; 36415; 74177; 80048; 80053; 81003; 82150; 83036; 83605; 83690; 85025; 86850; 86900; 86901; 93005; 96361; 96365; 96366; 99291

== ENCOUNTER 2024-10-21 06:29 | Day surgery (SDC) | payer MEDICARE ==
[2024-10-19 12:51] VITALS: BMI 24.4
[2024-10-21] MEDS: IV FLUID CONTINUATION 1,000 ML IV ONE (07:09)
[2024-10-21 07:14] VITALS: TEMP 97.8
[2024-10-21] MEDS: LACTATED RINGERS 1,000 ML IV SCH (07:25)
[2024-10-21 07:26] LABS: Glucose,Whole Blood 112 mg/dL (70-110)
[2024-10-21] MEDS ORDERED: PROPOFOL 10 MG/ML 20 ML VIAL IV ONE (07:40)
[2024-10-21] MEDS ORDERED: LIDOCAINE 1% INJ 10MG/ML (20 ML MDV) ONE (07:40)
--- NOTE | 2024-10-21 08:06 | P.PCN ---
Date of Procedure: 10/21/24 Procedure(s) Performed: Brief history: Patient is a pleasant 68-year-old white male scheduled for an elective upper endoscopy as well as colonoscopy as a part of evaluation of iron deficiency anemia. He denies any rectal bleeding or melena. Procedure performed: Esophagogastroduodenoscopy with biopsy Colonoscopy Preoperative diagnosis: Iron deficiency anemia Anesthesia: [facility] Procedure: After informed consent was obtained from the patient was brought into the endoscopy unit and IV sedation was administered by anesthesia under continuous monitoring. Initially upper endoscopy was done. The Olympus GF 160 video endoscope was inserted inserted into the mouth and esophagus intubated without any difficulty and was gradually advanced into the stomach and duodenum and carefully examined. The bulb and second part of the duodenum appeared normal. Biopsies were done from the duodenum to rule out celiac disease. The scope was then withdrawn into the stomach adequately insufflated with air and upon careful examination the antrum had mild gastritis and biopsies were done from this area. Mucosa of the d body, cardia and fundus appeared normal. The scope was then withdrawn into the esophagus. Moderate size hiatal hernia noted. The GE junction was located at 40 cm to the incisors. It appeared regular with no erythema erosions or ulcerations. Rest of the esophagus appeared normal. Patient tolerated the procedure well. At this time the patient continued to remain sedation. Initial digital rectal examination was normal. Olympus CF 160 video colonoscope was then inserted into the rectum and gradually advanced to the cecum without any difficulty. Careful examination was performed as the scope was gradually being withdrawn. The prep was excellent. The cecum, ascending colon, transverse colon, descending colon, sigmoid colon and rectum appeared normal. Scattered sigmoid diverticulosis. Retroflexion was performed in the rectum and small internal hemorrhoids were noted. Patient tolerated the procedure well. Impression: 1. Upper endoscopy revealed mild antral gastritis and moderate size hiatal hernia. 2. Colonoscopy revealed scattered sigmoid diverticulosis and small internal hemorrhoids with no evidence of colorectal neoplasia. Recommendations: Findings of this examination were discussed with the patient as well as his family. He was advised to continue with iron supplements. Follow-up with the biopsy results. Recommended repeat screening colonoscopy in 10 years.
[2024-10-21 08:13] VITALS: RESP 16
[2024-10-21 09:09] VITALS: BP 150/88; PULSE 76
== END 2024-10-21 09:12 | disposition home or self-care (01) ==
LOC: ORWHC2ENDO 06:29
PROVIDERS: ATTEND Internal Medicine Gastroenterology
DX: K31.9 Disease of stomach and duodenum, unspecified (principal); D72.820 Lymphocytosis (symptomatic); D50.9 Iron deficiency anemia, unspecified; K44.9 Diaphragmatic hernia without obstruction or gangrene; K57.30 Diverticulosis of large intestine without perforation or abscess without bleeding; K64.8 Other hemorrhoids; I25.10 Atherosclerotic heart disease of native coronary artery without angina pectoris; I10 Essential (primary) hypertension; E78.5 Hyperlipidemia, unspecified; E11.9 Type 2 diabetes mellitus without complications; Z95.5 Presence of coronary angioplasty implant and graft; Z86.73 Personal history of transient ischemic attack (TIA), and cerebral infarction without residual deficits; Z79.02 Long term (current) use of antithrombotics/antiplatelets; Z79.84 Long term (current) use of oral hypoglycemic drugs; Z79.899 Other long term (current) drug therapy; Z90.89 Acquired absence of other organs; Z98.890 Other specified postprocedural states
CPT/HCPCS: 88305; 45378; 43239; J2003; J2704

== ENCOUNTER 2025-01-17 21:11 | Observation (INO) | payer MEDICARE ==
[2025-01-17 21:27] LABS: Glucose,Whole Blood 140 mg/dL (70-110)
[2025-01-17 21:37] LABS: Basophils # (A) 0.06 10*3/uL (0.00-0.10); Basophils % (A) 0.7 %; Eosinophils # (A) 0.28 10*3/uL (0.04-0.35); Eosinophils % (A) 3.3 %; HCT 44.1 % (39.6-50.0); HGB 15.3 g/dL (13.0-17.0); Lymphocytes # (A) 2.03 10*3/uL (0.90-5.00); MCH 31.7 pg (27.0-32.0); MCHC 34.7 g/dL (32.0-37.0); MCV 91.3 fL (80.0-97.0); Mean Platelet Volume 9.6 fL (9.5-12.2); Monocytes # (A) 0.53 10*3/uL (0.20-1.00); Monocytes % (A) 6.3 %; Neutrophils # (A) 5.53 10*3/uL (1.80-7.70); Neutrophils % (A) 65.5 %; Platelet Count 181 10*3/uL (140-440); RBC 4.83 10*6/uL (4.40-5.60); WBC 8.45 10*3/uL (4.50-10.00)
--- NOTE | 2025-01-17 21:37 | ED ---
General Adult HPI - General Chief complaint: Chest Pain Stated complaint: Dizziness Time Seen by Provider: 01/17/25 21:19 Source: patient Mode of arrival: EMS - History of Present Illness Initial comments: Dictation was produced using [employer] dictation software. please excuse any gra mmatical, word or spelling errors. Chief Complaint: 69-year-old male with dizziness History of Present Illness: 69-year-old male presents emergency department with episode of presyncope. He was urinating all of a sudden he started to feel lightheaded. Patient states he had to hold himself up until he finished having a urine movement. States that he felt little lightheaded for several minutes after. Patient states that his presyncope was followed by episode of bilateral jaw paresthesias and left arm paresthesias he has extensive history of aortic aneurysm status post repair along with coronary artery disease. The ROS documented in this emergency department record has been reviewed and confirmed by me. Those systems with pertinent positive or negative responses have been documented in the HPI. All other systems are other negative and/or noncontributory. - Related Data Home Medications Medication Instructions Recorded Confirmed Aspirin EC [Ecotrin Low Dose] 81 mg PO W/SUPPER 03/20/22 10/21/24 Cholecalciferol [Vitamin D3 (25 50 mcg PO QAM 03/20/22 10/21/24 Mcg = 1000 Iu)] Esomeprazole Magnesium [NexIUM 20 mg PO QAM 03/20/22 10/21/24 24Hr] Multivitamins, Thera [Multivitamin 1 tab PO QAM 03/20/22 10/21/24 (formulary)] Rosuvastatin Calcium [Crestor] 20 mg PO W/SUPPER 03/20/22 10/21/24 metFORMIN HCL [Glucophage] 500 mg PO W/SUPPER 03/20/22 10/21/24 Clopidogrel [Plavix] 75 mg PO QAM 02/02/23 10/21/24 Losartan [Cozaar] 25 mg PO BID-W/MEALS 02/02/23 10/21/24 Metoprolol Succinate (ER) [Toprol 25 mg PO DAILY 02/02/23 10/21/24 XL] Potassium Chloride [Klor-Con 10 ER] 20 meq PO QAM 04/01/24 10/21/24 Evolocumab [Repatha Sureclick] 140 mg INJ [id number] 10/19/24 10/21/24 Ferrous Sulfate [Feosol] 162.5 mg PO DAILY 10/19/24 10/21/24 Tamsulosin [Flomax] 0.4 mg PO HS 10/19/24 10/21/24 Allergies Allergy/AdvReac Type Severity Reaction Status Date / Time No Known Allergies Allergy Verified 01/17/25 21:18 Review of Systems ROS Statement: Those systems with pertinent positive or pertinent negative responses have been documented in the HPI. ROS Other: All systems not noted in ROS Statement are negative. Past Medical History Past Medical History: Diabetes Mellitus, GERD/Reflux, Hearing Disorder / Deafness, Hyperlipidemia, Hypertension, Myocardial Infarction ([place]) Additional Past Medical History / Comment(s): HAS INGUINAL HERNIA-RT SIDE. LOW HEMOGLOBIN. LT EAR ONLY 10-20% HEARING Last Myocardial Infarction Date:: 2021 History of Any Multi-Drug Resistant Organisms: None Reported Past Surgical History: Heart Catheterization With Stent, Tonsillectomy Additional Past Surgical History / Comment(s): FEB 2024-AORTIC ANEURYSM REPAIR, COLONOSCOPY,. MASTOID SURGERY Past Anesthesia/Blood Transfusion Reactions: No Reported Reaction Date of Last Stent Placement:: 2021 Past Psychological History: No Psychological Hx Reported Smoking Status: Never smoker Past Alcohol Use History: Occasional Past Drug Use History: None Reported - Past Family History Mother Family Medical History: Cancer General Exam - General Exam Comments Initial Comments: PHYSICAL EXAM: General Impression: Alert and oriented x3, not in acute distress HEENT: Normocephalic atraumatic, extra-ocular movements intact, pupils equal and reactive to light bilaterally, mucous membranes moist. Cardiovascular: Heart regular rate and rhythm Chest: Able to complete full sentences, no retractions, no tachypnea Abdomen: abdomen soft, non-tender, non-distended, no organomegaly Musculoskeletal: Pulses present and equal in all extremities, no peripheral edema Motor: no focal deficits noted Neurological: CN II-XII grossly intact, no focal motor or sensory deficits noted Skin: Intact with no visualized rashes Psych: Normal affect and mood Course Vital Signs 01/17/25 21:12 Temperature 97.5 F L Pulse Rate 80 Respiratory 20 Rate Blood Pressure 170/107 O2 Sat by Pulse 95 Oximetry EKG Findings - EKG Comments: EKG Findings:: My EKG interpretation: Ventricular rate 81, sinus rhythm, parable 199, cures 1 4, QTc 39. No CA prolongation, no QTC prolongation, no ST or T- wave changes noted. Compared to April 01, 2024 with similar findings. o verall, this EKG is unremarkable Medical Decision Making - Medical Decision Making Was pt. sent in by a medical professional or institution (, PA, CLIENT SERVICES COORDINATOR, urgent care, hospital, or senior living...) When possible be specific @ -No Did you speak to anyone other than the patient for history (EMS, parent, family, police, friend...)? What history was obtained from this source @ -No Did you review nursing and triage notes (agree or disagree)? Why? @ -I reviewed and agree with nursing and triage notes Were old charts reviewed (outside hosp., previous admission, EMS record, old EKG, old radiological studies, urgent care reports/EKG's, senior living records)? Report findings @ -No old charts were reviewed Differential Diagnosis (chest pain, altered mental status, abdominal pain women, abdominal pain men, vaginal bleeding, musculoskeletal, weakness, fever, dyspnea, syncope, headache, dizziness, GI bleed, back pain, seizure, CVA, palpatations, mental health)? @ -Differential Chest Pain: Stable Angina, Unstable Angina, STEMI, NSTEMI Aortic Dissection, Pneumothorax, Musculoskeletal, Esophageal Spasm GERD, Cholecystitis, Pancreatitis, Zoster, this is not meant to be an all-inclusive list. EKG interpreted by me (3pts min.). @ -See above X-rays interpreted by me (1pt min.). @ -Chest x-ray shows possible fluid overload CT interpreted by me (1pt min.). @ -None done U/S interpreted by me (1pt. min.). @ -None done What testing was considered but not performed or refused? (CT, X-rays, U/S, labs)? Why? @ -None What meds were considered but not given or refused? Why? @ -None Was smoking cessation discussed for >3mins.? @ -No Were there social determinants of health that impacted care today? How? (Homelessness, low income, unemployed, alcoholism, drug addiction, transportation, low edu. Level, literacy, decrease access to med. care, skilled nursing, rehab)? @ -No Was there de-escalation of care discussed even if they declined (Discuss DNR or withdrawal of care, Hospice)? DNR status @ -No What co-morbidities impacted this encounter? (DM, HTN, Smoking, COPD, CAD, Cancer, CVA, ARF, Chemo, Hep., AIDS, mental health diagnosis, sleep apnea, morbid obesity)? @ -Coronary artery disease Was patient admitted / discharged? Hospital course, mention meds given and route, prescriptions, significant lab abnormalities, going to OR and other pertinent info. @ -69-year-old male presents the emergency department episode of dizziness with associated jaw and left upper extremity paresthesias. He has history of coronary artery disease myocardial infarction. Patient asymptomatic at the bedside. Vital signs stable. EKG is unremarkable for any acute process. Laboratory evaluation is unremarkable including troponin. Patient aspirin. This position options were discussed. Patient is agreeable with observation admission consultation cardiology. Case discussed with hospitalist for admission Did you discuss the management of the patient with other professionals (professionals i.e. , PA, CLIENT SERVICES COORDINATOR, lab, RT, psych nurse, social sciences lecturer, music education director, teacher, electoral officer, machine adjuster leader case trim)? Give summary @ -No Was critical care preformed (if so, how long)? @ -No Undiagnosed new problem with uncertain prognosis? @ -No Drug Therapy requiring intensive monitoring for toxicity (Heparin, Nitro, Insulin, Cardizem)? @ -No Were any procedures done? @ -No Diagnosis/symptom? Acute, or Chronic, or Acute on Chronic? Uncomplicated (without systemic symptoms) or Complicated (systemic symptoms)? @ -ACS Side effects of treatment? @ -No Exacerbation, Progression, or Severe Exacerbation? @ -No Poses a threat to life or bodily function? How? (Chest pain, [place], [place], pneumonia, PE, COPD, DKA, ARF, appy, cholecystitis, CVA, Diverticulitis, Homicidal, Suicidal, threat to staff... and all critical care pts) @ -yes - Lab Data Result diagrams: 01/17/25 21:27 01/17/25: Lab Results 01/17/25 01/17/25 01/17/25 Range/Units : 21: 21:27 WBC 8.45 (4.50-10.00) 10*3/uL RBC 4.83 (4.40-5.60) 10*6/uL Hgb 15.3 (13.0-17.0) g/dL Hct 44.1 (39.6-50.0) % MCV 91.3 (80.0-97.0) fL MCH 31.7 (27.0-32.0) pg MCHC 34.7 (32.0-37.0) g/dL Plt Count 181 (140-440) 10*3/uL MPV 9.6 (9.5-12.2) fL Immature Gran % (Auto) 0.2 % Neutrophils % 65.5 % Lymphocytes % 24.0 % Monocytes % 6.3 % Eosinophils % 3.3 % Basophils % 0.7 % Immature Gran # 0.02 (0.00-0.04) 10*3/uL Neutrophils # 5.53 (1.80-7.70) 10*3/uL Lymphocytes # 2.03 (0.90-5.00) 10*3/uL Monocytes # 0.53 (0.20-1.00) 10*3/uL Eosinophils # 0.28 (0.04-0.35) 10*3/uL Basophils # 0.06 (0.00-0.10) 10*3/uL PT 11.0 (10.0-12.5) sec INR 1.0 (<1.2) APTT 24.8 (22.0-30.0) sec Sodium (137-145) mmol/L Potassium (3.5-5.1) mmol/L Chloride (98-107) mmol/L Carbon Dioxide (22-30) mmol/L Anion Gap mmol/L BUN (9-20) mg/dL Creatinine (0.66-1.25) mg/dL Est GFR (CKD-EPI)AfAm (>60 ml/min/1.73 sqM) Est GFR (CKD-EPI)NonAf (>60 ml/min/1.73 sqM) Glucose (74-99) mg/dL POC Glucose (mg/dL) 140 H (70-110) mg/dL POC Glu Slip Cover Seamstress ID Art Menjivar Calcium (8.4-10.2) mg/dL Magnesium (1.6-2.3) mg/dL Total Bilirubin (0.2-1.3) mg/dL AST (17-59) U/L ALT (4-49) U/L Alkaline Phosphatase (38-126) U/L Troponin I (0.000-0.034) ng/mL Total Protein (6.3-8.2) g/dL Albumin (3.5-5.0) g/dL 01/17/25 01/17/25 Range/Units 21:27 21:27 WBC (4.50-10.00) 10*3/uL RBC (4.40-5.60) 10*6/uL Hgb (13.0-17.0) g/dL Hct (39.6-50.0) % MCV (80.0-97.0) fL MCH (27.0-32.0) pg MCHC (32.0-37.0) g/dL Plt Count (140-440) 10*3/uL MPV (9.5-12.2) fL Immature Gran % (Auto) % Neutrophils % % Lymphocytes % % Monocytes % % Eosinophils % % Basophils % % Immature Gran # (0.00-0.04) 10*3/uL Neutrophils # (1.80-7.70) 10*3/uL Lymphocytes # (0.90-5.00) 10*3/uL Monocytes # (0.20-1.00) 10*3/uL Eosinophils # (0.04-0.35) 10*3/uL Basophils # (0.00-0.10) 10*3/uL PT (10.0-12.5) sec INR (<1.2) APTT (22.0-30.0) sec Sodium 133 L (137-145) mmol/L Potassium 5.1 (3.5-5.1) mmol/L Chloride 101 (98-107) mmol/L Carbon Dioxide 18 L (22-30) mmol/L Anion Gap 14 mmol/L BUN 18 (9-20) mg/dL Creatinine 0.89 (0.66-1.25) mg/dL Est GFR (CKD-EPI)AfAm >90 (>60 ml/min/1.73 sqM) Est GFR (CKD-EPI)NonAf 87 (>60 ml/min/1.73 sqM) Glucose 143 H (74-99) mg/dL POC Glucose (mg/dL) (70-110) mg/dL POC Glu Slip Cover Seamstress ID Calcium 9.4 (8.4-10.2) mg/dL Magnesium 1.9 (1.6-2.3) mg/dL Total Bilirubin 1.5 H (0.2-1.3) mg/dL AST 43 (17-59) U/L ALT 20 (4-49) U/L Alkaline Phosphatase 104 (38-126) U/L Troponin I <0.012 (0.000-0.034) ng/mL Total Protein 7.8 (6.3-8.2) g/dL Albumin 4.9 (3.5-5.0) g/dL Disposition Clinical Impression: ACS (acute coronary syndrome) Disposition: ADMITTED IP TO THIS HOSP Condition: Fair Referrals: Cat Pryor DO [Primary Care Provider] - 1-2 days Decision Time: 22:28
--- NOTE | 2025-01-17 21:54 | XR ---
EXAMINATION TYPE: XR chest 2V DATE OF EXAM: 01/17/2025 9:50 PM COMPARISON: None. CLINICAL INDICATION: Male, 69 years old with history of Chest Pain; [facility] TECHNIQUE: XR chest 2V Frontal and lateral views of the chest. FINDINGS: Lungs/Pleura: There is no evidence of pleural effusion, focal consolidation, or pneumothorax. Bibasi lar atelectasis. Pulmonary vascularity: Pulmonary vascular congestion. Heart/mediastinum: Cardiomediastinal silhouette is unremarkable. Musculoskeletal: No acute osseous pathology. Other findings: None IMPRESSION: Prominence of the interstitial vascular markings compatible with pulmonary vascular congestion. [facility], , 01/17/2025 9:51 PM
[2025-01-17 21:58] LABS: ALT 20 U/L (4-49); African American GFR (CKD) >90 (>60 ml/min/1.73 sqM); Anion Gap 14 mmol/L; Blood Urea Nitrogen 18 mg/dL (9-20); Calcium 9.4 mg/dL (8.4-10.2); Carbon Dioxide 18 mmol/L (22-30); Chloride 101 mmol/L (98-107); Glucose 143 mg/dL (74-99); Non-African American GFR(CKD) 87 (>60 ml/min/1.73 sqM); Sodium 133 mmol/L (137-145)
[2025-01-17 22:10] LABS: AST 43 U/L (17-59); Albumin 4.9 g/dL (3.5-5.0); Alkaline Phosphatase 104 U/L (38-126); Magnesium 1.9 mg/dL (1.6-2.3); Potassium 5.1 mmol/L (3.5-5.1); Total Bilirubin 1.5 mg/dL (0.2-1.3); Total Protein 7.8 g/dL (6.3-8.2)
[2025-01-17 22:13] LABS: Partial Thromboplastin Time 24.8 sec (22.0-30.0)
[2025-01-17] MEDS ORDERED: NITROGLYCERIN SL TABS 0.4 MG TAB SUBLINGUAL PRN (22:23)
[2025-01-17] MEDS: ASPIRIN 81 MG PO STA (22:30)
[2025-01-17] MEDS: LOSARTAN 25 MG TAB PO SCH (23:33)
[2025-01-18 00:32] LABS: Influenza A Not Detected (Not Detectd); Influenza B Not Detected (Not Detectd); RSV Not Detected (Not Detectd)
[2025-01-18 08:33] LABS: Chol/HDL Ratio 2.11 Ratio; LDL Cholesterol,Calculated 29.5 mg/dL (0.0-131.0); VLDL Calculation 16.74 mg/dL (5.00-40.00)
[2025-01-18] MEDS ORDERED: ASPIRIN 325 MG TAB PO SCH (09:00)
[2025-01-18] MEDS: LOSARTAN 50 MG TAB PO SCH (09:01)
[2025-01-18] MEDS: METOPROLOL SUCCINATE (ER) 25 MG TAB.ER.24H PO SCH (09:02)
[2025-01-18] MEDS: ASPIRIN 81 MG PO SCH (09:02)
[2025-01-18] MEDS ORDERED: DEXTROSE 50% SYRINGE 50 ML IVP PRN ×2 (09:59)
[2025-01-18] MEDS ORDERED: ACETAMINOPHEN TAB 325 MG TAB PO PRN (09:59)
[2025-01-18 10:16] VITALS: RESP 16
--- NOTE | 2025-01-18 10:58 | P.CRDCN ---
History of Present Illness History of present illness: HISTORY OF PRESENTING ILLNESS This is a pleasant 69-year-old male past medical history significant for coronary artery disease status post PCI with Impella support, hypertension, dyslipidemia, peripheral vascular disease status post abdominal aortic stent graft for a ruptured 4.6 cm infrarenal abdominal aortic aneurysm 03/2024. He follows in the office with Dr. Bledsoe at . We have been asked to see in consultation for chest pain. He states yesterday he was up using the restroom urinating when he became acutely dizzy. He was able to walk back into the living room but then the room started spinning. He became diaphoretic and then developed left arm and facial tingling. The symptoms have subsided. He follows regularly with his diesel service apprentice. He has a stress test scheduled for January in her office. EKG reveals sinus bradycardia first-degree AV block heart rate of 59 with nonspecific T wave abnormalities consistent with previous EKG no acute changes noted. Chest x-ray shows prominence of the interstitial vascular markings. Laboratory data reviewed, CBC unremarkable, sodium 133, potassium 5.1, creatinine 0.89, magnesium 1.9, cardiac enzymes negative x 3, NT proBNP 1370 and LDL 29. Current daily cardiac medications include aspirin 81 mg daily, Plavix 75 mg daily, rosuvastatin 20 mg daily, Toprol 25 mg daily, losartan 25 mg twice daily and Repatha 140 mg every other week. Most recent echocardiogram obtained in January 2023 revealing ejection fraction 45 to 50%, anterior apical and anterior septal hypokinesis, moderate MR, mild to moderate aortic regurgitation. Cardiac catheterization history: March 2022 revealing calcified coronary arteries, acutely occluded proximal LAD, subtotally occluded first obtuse marginal branch and chronically occluded right PLV with significant disease in the RCA. REVIEW OF SYSTEMS At the time of my exam: CONSTITUTIONAL: Denies fever or chills. CARDIOVASCULAR: Denies chest pain, shortness of breath, orthopnea, PND or palpitations. RESPIRATORY: Denies cough. GASTROINTESTINAL: Denies abdominal pain, diarrhea, constipation, nausea or vomiting. MUSCULOSKELETAL: Denies myalgias. NEUROLOGIC: Denies numbness, tingling, headache or weakness. ENDOCRINE: Denies fatigue, weight change, polydipsia or polyurina. GENITOURINARY: Denies burning, hematuria or urgency with micturation. HEMATOLOGIC: Denies history of anemia or bleeding. PHYSICAL EXAMINATION Blood pressure 154/95 heart rate 62 afebrile and maintaining oxygen saturation on room air. CONSTITUTIONAL: No apparent distress. HEENT: Head is normocephalic. Pupils are equal, round. Sclerae anicteric. Mucous membranes of the mouth are moist. No JVD. No carotid bruit. CHEST EXAMINATION: Lungs are clear to auscultation. No chest wall tenderness is noted on palpation or with deep breathing. HEART EXAMINATION: Regular rate and rhythm. S1, S2 heard. No murmurs, gallops or rub. ABDOMEN: Soft, nontender. EXTREMITIES: 2+ peripheral pulses, no lower extremity edema and no calf tenderness. NEUROLOGIC EXAMINATION: Patient is awake, alert and oriented x3. ASSESSMENT Near syncope likely related to vasovagal reaction History of coronary artery disease status post PCI Hypertension Dyslipidemia Abdominal aortic aneurysm status post stent graft PLAN An acute coronary event has been ruled out. Change losartan to 50 mg daily and decrease Toprol to 12.5 mg daily. Obtain 2D echocardiogram and Doppler study to assess cardiac structure and function. Increase activity and ambulation and monitor on telemetry for another 24 hours. Consider outpatient event monitoring upon discharge. He will follow-up with his primary diesel service apprentice. Explained our thoughts and plan in detail to the patient and his . Thank you kindly for this consultation. Nurse Practitioner note has been reviewed, I agree with a documented findings and plan of care. Patient was seen and examined. Past Medical History Past Medical History: Diabetes Mellitus, GERD/Reflux, Hearing Disorder / Deafness, Hyperlipidemia, Hypertension, Myocardial Infarction ([place]) Additional Past Medical History / Comment(s): HAS INGUINAL HERNIA-RT SIDE. LOW HEMOGLOBIN. LT EAR ONLY 10-20% HEARING Last Myocardial Infarction Date:: 2021 History of Any Multi-Drug Resistant Organisms: None Reported Past Surgical History: Heart Catheterization With Stent, Tonsillectomy Additional Past Surgical History / Comment(s): FEB 2024-AORTIC ANEURYSM REPAIR, COLONOSCOPY,. MASTOID SURGERY Past Anesthesia/Blood Transfusion Reactions: No Reported Reaction Date of Last Stent Placement:: 2021 Past Psychological History: No Psychological Hx Reported Smoking Status: Never smoker Past Alcohol Use History: Occasional Past Drug Use History: None Reported - Past Family History Mother Family Medical History: Cancer Medications and Allergies Home Medications Medication Instructions Recorded Confirmed Type Aspirin EC [Ecotrin Low Dose] 81 mg PO W/SUPPER 03/20/22 01/18/25 History Cholecalciferol [Vitamin D3 (25 50 mcg PO QAM 03/20/22 01/18/25 History Mcg = 1000 Iu)] Esomeprazole Magnesium [NexIUM 20 mg PO QAM 03/20/22 01/18/25 History 24Hr] Multivitamins, Thera [Multivitamin 1 tab PO QAM 03/20/22 01/18/25 History (formulary)] Rosuvastatin Calcium [Crestor] 20 mg PO W/SUPPER 03/20/22 01/18/25 History metFORMIN HCL [Glucophage] 500 mg PO W/SUPPER 03/20/22 01/18/25 History Clopidogrel [Plavix] 75 mg PO QAM 02/02/23 01/18/25 History Losartan [Cozaar] 25 mg PO BID-W/MEALS 02/02/23 01/18/25 History Metoprolol Succinate (ER) [Toprol 25 mg PO DAILY 02/02/23 01/18/25 History XL] Potassium Chloride [Klor-Con 10 ER] 20 meq PO QAM 04/01/24 01/18/25 History Evolocumab [Repatha Sureclick] 140 mg INJ [id number] 10/19/24 01/18/25 History Ferrous Sulfate [Feosol] 162.5 mg PO DAILY 10/19/24 01/18/25 History Tamsulosin [Flomax] 0.4 mg PO HS 10/19/24 01/18/25 History Allergies Allergy/AdvReac Type Severity Reaction Status Date / Time No Known Allergies Allergy Verified 01/18/25 07:15 Physical Exam Vitals: Vital Signs Temp Pulse Pulse Resp BP BP Pulse Ox 01/18/25 01:34 97.8 F 65 15 163/87 96 01/18/25 01:23 98.1 F 72 18 153/78 95 01/17/25 23:20 98.0 F 70 18 152/92 95 01/17/25 22:00 73 18 158/105 95 01/17/25 21:12 97.5 F L 80 20 170/107 95 Intake and Output 01/17/25 01/18/25 01/18/25 22:59 06:59 14:59 Output Total 1100 Balance -1100 Output: Urine 1100 Other: # Voids 2 Weight 81.647 kg 81.647 kg Results 01/17/25 21:27 01/17/25 21:27 Cardiac Enzymes 01/17/25 01/17/25 01/18/25 Range/Units 21: 21: 00:27 AST 43 (17-59) U/L Troponin I <0.012 0.014 (0.000-0.034) ng/mL 01/18/25 Range/Units 05:28 AST (17-59) U/L Troponin I 0.016 (0.000-0.034) ng/mL Coagulation 01/17/25 Range/Units 21: PT 11.0 (10.0-12.5) sec APTT 24.8 (22.0-30.0) sec Lipids 01/18/25 Range/Units 05:28 Triglycerides 83.70 (0.00-149.00) mg/dL Cholesterol 88.00 (0.00-200.00) mg/dL HDL Cholesterol 41.80 (40.00-60.00) mg/dL Cholesterol/HDL Ratio 2.11 Ratio CBC 01/17/25 Range/Units 21: WBC 8.45 (4.50-10.00) 10*3/uL RBC 4.83 (4.40-5.60) 10*6/uL Hgb 15.3 (13.0-17.0) g/dL Hct 44.1 (39.6-50.0) % Plt Count 181 (140-440) 10*3/uL Comprehensive Metabolic Panel 01/17/25 Range/Units 21: Sodium 133 L (137-145) mmol/L Potassium 5.1 (3.5-5.1) mmol/L Chloride 101 (98-107) mmol/L Carbon Dioxide 18 L (22-30) mmol/L BUN 18 (9-20) mg/dL Creatinine 0.89 (0.66-1.25) mg/dL Glucose 143 H (74-99) mg/dL Calcium 9.4 (8.4-10.2) mg/dL AST 43 (17-59) U/L ALT 20 (4-49) U/L Alkaline Phosphatase 104 (38-126) U/L Total Protein 7.8 (6.3-8.2) g/dL Albumin 4.9 (3.5-5.0) g/dL Current Medications Generic Name Dose Route Start Last Admin Trade Name Elíasq PRN Reason Stop Dose Admin Aspirin 325 mg 01/18/25 09:00 Aspirin 325 Mg Tab PO DAILY XIAO Losartan Potassium 25 mg 01/17/25 23:30 01/17/25 23:33 Losartan 25 Mg Tab PO 25 mg BID XIAO Administration Nitroglycerin 0.4 mg 01/17/25 22:23 Nitroglycerin Sl Tabs 0.4 Mg Tab SUBLINGUAL Q5M PRN Chest Pain Intake and Output 01/17/25 01/18/25 01/18/25 22:59 06:59 14:59 Output Total 1100 Balance -1100 Output: Urine 1100 Other: # Voids 2 Weight 81.647 kg 81.647 kg 01/17/25 21:27 01/17/25 21:27
[2025-01-18 11:37] LABS: Glucose,Whole Blood 118 mg/dL (70-110)
[2025-01-18] MEDS: INSULIN LISPRO (HumaLOG) 100 UNIT/ML 10 mL VL SQ SCH (11:38)
--- NOTE | 2025-01-18 15:37 | P.HPIM ---
History of Present Illness H&P Date: 01/18/25 This is a pleasant 69-year-old male with medical history significant for diabetes mellitus type 2, hypertension, hyperlipidemia, coronary artery disease with prior cardiac stenting. Also history of aortic aneurysm with repair. Reports show the patient underwent a cardiac catheterization back in 2021 and underwent stenting of the proximal LAD. Prior echocardiogram reveals an EF of 10 to 15% with moderate concentric left ventricular hypertrophy and severe atrial apical hypokinesis. Patient presents to the hospital with complaints of a presyncopal episode feeling lightheaded was urinating. He then began to feel lightheaded for several minutes after. He had jaw paresthesias left arm paresthesias. Patient follows with [facility] out of [place] has a stress test scheduled for february 16 as part of preop work up for hernia surgery. He is currently asymptomatic. His CBC is unremarkable sodium level of 133 potassium 5.1 his BUN is 18 creatinine 0.89 troponin level is less than 0.0120.0 14 and 0.016. proBNP is 1370. His lipid panel shows sugars to level of 83, cholesterol of 88, LDL 29.5 and HDL 41.80. He has been afebrile heart rate of 65 normal sinus rhythm, blood pressure 163/87 and he is 97% on room air. Losartan has been increased to 50 mg daily. REVIEW OF SYSTEMS: CONSTITUTIONAL: No fever, no malaise, no fatigue. HEENT: No recent visual problems or hearing problems. Denied any sore throat. CARDIOVASCULAR: No chest pain, orthopnea, PND, no palpitations, no syncope. PULMONARY: No shortness of breath, no cough, no hemoptysis. GASTROINTESTINAL: No diarrhea, no nausea, no vomiting, no abdominal pain. NEUROLOGICAL: No headaches, no weakness, no numbness. HEMATOLOGICAL: Denies any bleeding or petechiae. GENITOURINARY: Denies any burning micturition, frequency, or urgency. MUSCULOSKELETAL/RHEUMATOLOGICAL: Denies any joint pain, swelling, or any muscle pain. ENDOCRINE: Denies any polyuria or polydipsia. The rest of the 14-point review of systems is negative. PHYSICAL EXAMINATION: GENERAL: The patient is alert and oriented x3, not in any acute distress. Well developed, well nourished. HEENT: Pupils are round and equally reacting to light. EOMI. No scleral icterus. No conjunctival pallor. Normocephalic, atraumatic. No pharyngeal erythema. No thyromegaly. CARDIOVASCULAR: S1 and S2 present. No murmurs, rubs, or gallops. PULMONARY: Chest is clear to auscultation, no wheezing or crackles. ABDOMEN: Soft, nontender, nondistended, normoactive bowel sounds. No palpable organomegaly. MUSCULOSKELETAL: No joint swelling or deformity. EXTREMITIES: No cyanosis, clubbing, or pedal edema. NEUROLOGICAL: Gross neurological examination did not reveal any focal deficits. SKIN: No rashes. Assessment Near Syncope with dizziness and diaphoresis History of coronary artery disease with prior cardiac stenting History of aortic aneurysm with repair Hypertension Hyperlipidemia Diabetes mellitus type 2 GI prophylaxis Plan Echocardiogram has been ordered and pending Per cardiology no ACS Metoprolol has been decreased to 12.5 mg daily Losartan has been changed to 50 mg daily Recommend to hold metformin at this time continue Accu-Cheks ACHS and sliding scale insulin Echocardiogram has been ordered and pending Event monitor recommended on discharge Patient to be continued on telemetry for the next 24 hours and possible DC home tomorrow. The impression and plan of care has been dictated by Nadine Thrasher Nurse Practitioner as directed. Dr. Gretta MD I have performed a history and physical examination and medical decision making of this patient, discussed the same with the dictator, and agree with the dictators assessment and plan as written, documented as a scribe. Based on total visit time, I have performed more than 50% of this visit. Past Medical History Past Medical History: Diabetes Mellitus, GERD/Reflux, Hearing Disorder / Deafness, Hyperlipidemia, Hypertension, Myocardial Infarction ([place]) Additional Past Medical History / Comment(s): HAS INGUINAL HERNIA-RT SIDE. LOW HEMOGLOBIN. LT EAR ONLY 10-20% HEARING Last Myocardial Infarction Date:: 2021 History of Any Multi-Drug Resistant Organisms: None Reported Past Surgical History: Heart Catheterization With Stent, Tonsillectomy Additional Past Surgical History / Comment(s): FEB 2024-AORTIC ANEURYSM REPAIR, COLONOSCOPY,. MASTOID SURGERY Past Anesthesia/Blood Transfusion Reactions: No Reported Reaction Date of Last Stent Placement:: 2021 Past Psychological History: No Psychological Hx Reported Smoking Status: Never smoker Past Alcohol Use History: Occasional Past Drug Use History: None Reported - Past Family History Mother Family Medical History: Cancer Medications and Allergies Home Medications Medication Instructions Recorded Confirmed Type Cholecalciferol [Vitamin D3 (25 50 mcg PO QAM 03/20/22 01/18/25 History Mcg = 1000 Iu)] Esomeprazole Magnesium [NexIUM 20 mg PO QAM 03/20/22 01/18/25 History 24Hr] Multivitamins, Thera [Multivitamin 1 tab PO QAM 03/20/22 01/18/25 History (formulary)] Rosuvastatin Calcium [Crestor] 20 mg PO W/SUPPER 03/20/22 01/18/25 History metFORMIN HCL [Glucophage] 500 mg PO W/SUPPER 03/20/22 01/18/25 History Clopidogrel [Plavix] 75 mg PO QAM 02/02/23 01/18/25 History Potassium Chloride [Klor-Con 10 ER] 20 meq PO QAM 04/01/24 01/18/25 History Evolocumab [Repatha Sureclick] 140 mg INJ [id number] 10/19/24 01/18/25 History Ferrous Sulfate [Iron (65 MG 162.5 mg PO DAILY 10/19/24 01/18/25 History Elemental)] Tamsulosin [Flomax] 0.4 mg PO HS 10/19/24 01/18/25 History Aspirin 81 mg PO DAILY tab 01/18/25 Rx Losartan [Cozaar] 50 mg PO DAILY #30 tab 01/18/25 Rx Metoprolol Succinate (ER) [Toprol 12.5 mg PO DAILY #15 tab 01/18/25 Rx XL] Allergies Allergy/AdvReac Type Severity Reaction Status Date / Time No Known Allergies Allergy Verified 01/18/25 07:15 Physical Exam Vitals: Vital Signs Temp Pulse Pulse Resp BP BP Pulse Ox 01/18/25 01:34 97.8 F 65 15 163/87 96 01/18/25 01:23 98.1 F 72 18 153/78 95 01/17/25 23:20 98.0 F 70 18 152/92 95 01/17/25 22:00 73 18 158/105 95 01/17/25 21:12 97.5 F L 80 20 170/107 95 Intake and Output 01/17/25 01/18/25 01/18/25 22:59 06:59 14:59 Output Total 1100 Balance -1100 Output: Urine 1100 Other: # Voids 2 Weight 81.647 kg 81.647 kg Results CBC & Chem 7: 01/17/25 21:27 01/17/25 21:27 Labs: Abnormal Lab Results - Last 24 Hours (Table) 01/17/25 01/17/25 Range/Units 21:25 21:27 Sodium 133 L (137-145) mmol/L Carbon Dioxide 18 L (22-30) mmol/L Glucose 143 H (74-99) mg/dL POC Glucose (mg/dL) 140 H (70-110) mg/dL Total Bilirubin 1.5 H (0.2-1.3) mg/dL Thrombosis Risk Factor Assmnt - Choose All That Apply Any of the Below Risk Factors Present?: No Other Risk Factors: Yes Each Risk Factor Represents 2 Points: Age 61-74 years Thrombosis Risk Factor Assessment Total Risk Factor Score: 2 Thrombosis Risk Factor Assessment Level: Low Risk Assessment and Plan Time with Patient: Less than 30
[2025-01-18 16:29] LABS: Glucose,Whole Blood 158 mg/dL (70-110)
[2025-01-18] MEDS: ATORVASTATIN 40 MG TAB PO SCH (16:56)
[2025-01-18] MEDS ORDERED: NON FORMULARY DRUG (Aspirin Ec 81 MG Tablet) PO SCH (17:30)
[2025-01-18 20:44] LABS: Glucose,Whole Blood 112 mg/dL (70-110)
[2025-01-18] MEDS: TAMSULOSIN 0.4 MG CAP.ER.24H PO SCH (20:59)
[2025-01-19 06:30] LABS: Glucose,Whole Blood 127 mg/dL (70-110)
[2025-01-19] MEDS: PANTOPRAZOLE 40 MG TABLET PO SCH (06:38)
[2025-01-19] MEDS: CHOLECALCIFEROL 25 MCG (1000 IU) TABLET PO SCH (08:36)
[2025-01-19] MEDS: MULTIVITAMINS, THERA 1 EACH TAB PO SCH (08:36)
[2025-01-19] MEDS: CLOPIDOGREL 75 MG TAB PO SCH (08:36)
[2025-01-19] MEDS: FERROUS SULFATE 325 MG TAB PO SCH (08:37)
[2025-01-19 11:01] VITALS: BP 153/80; PULSE 67; TEMP 98.1
--- NOTE | 2025-01-19 12:37 | CA ---
Transthoracic Echo Report Name: Rad Lozano Age: 69 Gender: M : 1955 Exam Date: 01/19/2025 09:34 Exam Location: [facility] Ht (in): 71 Wt (lb): 180 Ordering Physician: Merissa Moreno Attending/Referring Phys: [id number], Tiffanie Validation Engineer Kendall Wall, [id number] Procedure CPT: Indications: near syncope Cardiac Hx: Technical Quality: Technically difficult study Contrast 1: Definity Total Dose (mL): 2 Contrast 2: Total Dose (mL): MEASUREMENTS (Male / Female) Normal Values 2D ECHO LV Diastolic Diameter PLAX 5.2 cm 4.2 - 5.9 / 3.9 - 5.3 cm LV Systolic Diameter PLAX 4.1 cm IVS Diastolic Thickness 0.9 cm 0.6 - 1.0 / 0.6 - 0.9 cm LVPW Diastolic Thickness 1.0 cm 0.6 - 1.0 / 0.6 - 0.9 cm LV Relative Wall Thickness 0.4 RV Internal Dim ED PLAX 2.8 cm LA Systolic Diameter LX 4.1 cm 3.0 - 4.0 / 2.7 - 3.8 cm LV Diastolic Volume MOD BP 177.1 cm??? 67 - 155 / 56 - 104 cm??? LV Systolic Volume MOD BP 115.4 cm??? - / 19 - 49 cm??? LV Ejection Fraction MOD BP 34.8 % >= 55 % LV Cardiac Index MOD BP 2128.0 cm???/min???m??? LV Diastolic Volume MOD 4C 164.9 cm??? LV Systolic Volume MOD 4C 111.3 cm??? LV Ejection Fraction MOD 4C 32.5 % LV Cardiac Index MOD 4C 1850.9 cm???/min???m??? LV Diastolic Length 4C 9.3 cm LV Systolic Length 4C 8.3 cm LV Diastolic Volume MOD 2C 185.4 cm??? LV Systolic Volume MOD 2C 114.8 cm??? LV Ejection Fraction MOD 2C 38.1 % LV Cardiac Index MOD 2C 2432.6 cm???/min???m??? LV Diastolic Length 2C 9.0 cm LV Systolic Length 2C 8.7 cm LA Volume 61.8 cm??? - / 22 - 52 cm??? LA Volume Index 30.4 cm???/m??? 16 - 28 cm???/m??? DOPPLER AI Peak Velocity 316.1 cm/s AI Peak Gradient 40.0 mmHg AI Pressure Half Time 500.1 ms MV Peak Velocity 116.0 cm/s MV Peak Gradient 5.4 mmHg MV Mean Velocity 63.6 cm/s MV Mean Gradient 1.9 mmHg MV Velocity Time Integral 32.0 cm MV Area PHT 3.4 cm??? MR Peak Velocity 543.2 cm/s MR Peak Gradient 118.0 mmHg Mitral E Point Velocity 100.0 cm/s Mitral A Point Velocity 38.0 cm/s Mitral E to A Ratio 2.6 MV Deceleration Time 225.3 ms TR Peak Velocity 234.4 cm/s TR Peak Gradient 22.0 mmHg FINDINGS Left Ventricle Left ventricular ejection fraction is estimated at 30-35%. Mildly increased left ventricular diastolic volume. Severely increased left ventricular systolic volume. Moderately decreased left ventricular ejection fraction. Dilated Left ventricular cavity. Right Ventricle Normal right ventricular size and function. Right ventricular systolic pressure within normal limits. Right Atrium right atrial dilatation. Left Atrium Moderate left atrial dilatation Mitral Valve Mitral valve thickened. No mitral stenosis. [id number] mitral regurgitation. Aortic Valve Trileaflet aortic valve. Thickened aortic valve without stenosis. Moderate aortic regurgitation. Tricuspid Valve Structurally normal tricuspid valve. No tricuspid stenosis. Trace tricuspid regurgitation. Pulmonic Valve Pulmonic valve not well visualized. No pulmonic stenosis. Trace pulmonic regurgitation. Pericardium No pericardial effusion. Aorta Normal size aortic root and proximal ascending aorta. CONCLUSIONS LVEF 30 to 35% Anteroapical wall hypokinesia, globally reduced LV systolic function Severe eccentric mitral regurgitation Moderate left atrial dilatation, with elevated LA filling pressures Moderate aortic regurgitation Previewed by: Dr Kurtis Feng (Electronically Signed) Final Date: 19 January 2025 12:36
--- NOTE | 2025-01-19 17:08 | P.PN ---
Subjective Progress Note Date: 01/19/25 HISTORY OF PRESENTING ILLNESS This is a pleasant 69-year-old male past medical history significant for coronary artery disease status post PCI with Impella support, hypertension, dyslipidemia, peripheral vascular disease status post abdominal aortic stent graft for a ruptured 4.6 cm infrarenal abdominal aortic aneurysm 03/2024. He follows in the office with Dr. Bledsoe at . We have been asked to see in consultation for chest pain. He states yesterday he was up using the restroom urinating when he became acutely dizzy. He was able to walk back into the living room but then the room started spinning. He became diaphoretic and then developed left arm and facial tingling. The symptoms have subsided. He follows regularly with his detail supervisor. He has a stress test scheduled for January in her office. EKG reveals sinus bradycardia first-degree AV block heart rate of 59 with nonspecific T wave abnormalities consistent with previous EKG no acute changes noted. Chest x-ray shows prominence of the interstitial vascular markings. Laboratory data reviewed, CBC unremarkable, sodium 133, potassium 5.1, creatinine 0.89, magnesium 1.9, cardiac enzymes negative x 3, NT proBNP 1370 and LDL 29. Current daily cardiac medications include aspirin 81 mg daily, Plavix 75 mg daily, rosuvastatin 20 mg daily, Toprol 25 mg daily, losartan 25 mg twice daily and Repatha 140 mg every other week. Most recent echocardiogram obtained in January 2023 revealing ejection fraction 45 to 50%, anterior apical and anterior septal hypokinesis, moderate MR, mild to moderate aortic regurgitation. Cardiac catheterization history: March 2022 revealing calcified coronary arteries, acutely occluded proximal LAD, subtotally occluded first obtuse marginal branch and chronically occluded right PLV with significant disease in the RCA. Progress note 01/19/2025 Seen and examined at bedside this a.m. . Denies having any active chest pain chest pressure Blood pressure and heart rate are stable No further lightheadedness dizziness. Ambulated in the unit without any limitation PHYSICAL EXAMINATION HEENT: Head is normocephalic. Pupils are equal, round. Sclerae anicteric. Mucous membranes of the mouth are moist. No JVD. No carotid bruit. CHEST EXAMINATION: Lungs are clear to auscultation. No chest wall tenderness is noted on palpation or with deep breathing. HEART EXAMINATION: Regular rate and rhythm. S1, S2 heard. No murmurs, gallops or rub. ABDOMEN: Soft, nontender. EXTREMITIES: 2+ peripheral pulses, no lower extremity edema and no calf tenderness. NEUROLOGIC EXAMINATION: Patient is awake, alert and oriented x3. ASSESSMENT Near syncope likely related to vasovagal reaction History of coronary artery disease status post PCI Hypertension Dyslipidemia Abdominal aortic aneurysm status post stent graft PLAN Reduced losartan to 50, Toprol-XL to 12.5 mg daily. On this regimen blood pressure is better Orthostatic vital signs were not positive Obtain Holter monitor Cleared from cardiology. Follow-up with primary detail supervisor in next 1 to 2 weeks Outpatient echocardiogram with primary detail supervisor. Patient was not wanting to wait for echocardiogram to be done and get discharged in next 1 days after echo. He wanted to get it done with his primary detail supervisor Objective - Vital Signs Vital signs: Vital Signs Temp 98.1 F 01/19/25 07:00 Pulse 67 01/19/25 07:00 Resp 16 01/19/25 07:00 BP 153/80 01/19/25 07:00 Pulse Ox 100 01/19/25 07:00 FiO2 Intake & Output 01/18/25 01/19/25 01/19/25 18:59 06:59 18:59 Intake Total 150 Balance 150 Intake: Oral 150 Other: # Voids 2 1 - Labs CBC & Chem 7: 01/17/25 21:27 01/17/25 21:27 Labs: Abnormal Lab Results - Last 24 Hours (Table) 01/18/25 01/18/25 01/19/25 Range/Units 20:43 21:27 06:29 POC Glucose (mg/dL) 112 H 127 H (70-110) mg/dL Hemoglobin A1c 6.5 H (<=6.0) %
--- NOTE | 2025-01-25 23:35 | P.DS ---
Providers Date of admission: 01/17/25 22:23 Expected date of discharge: 01/19/25 Attending physician: Jason Vincent Consults: 01/17/25 22:23 Consult Physician Urgent Consulting Provider: Kurtis Feng Consult Reason/Comments: chest pain Do you want consulting provider notified?: Yes Primary care physician: Cat Pryor Hospital Course: Final diagnosis Near Syncope with dizziness and diaphoresis ACS ruled out History of coronary artery disease with prior cardiac stenting History of aortic aneurysm with repair Hypertension Hyperlipidemia Diabetes mellitus type 2 GI prophylaxis Discharge disposition Patient is being discharged in a stable condition with guarded prognosis to home. Patient will follow-up with Dr. Pryor in the outpatient setting upon discharge. Patient is to continue with current medications and outpatient follow-up with cardiology as scheduled. Total time taken is greater than 35 minutes. Hospital course This is a pleasant 69-year-old male with medical history significant for diabetes mellitus type 2, hypertension, hyperlipidemia, coronary artery disease with prior cardiac stenting. Also history of aortic aneurysm with repair. Reports show the patient underwent a cardiac catheterization back in 2021 and underwent stenting of the proximal LAD. Prior echocardiogram reveals an EF of 10 to 15% with moderate concentric left ventricular hypertrophy and severe atrial apical hypokinesis. Patient presents to the hospital with complaints of a presyncopal episode feeling lightheaded was urinating. He then began to feel lightheaded for several minutes after. He had jaw paresthesias left arm paresthesias. Patient follows with [facility] Program [facility] out of [facility] has a stress test scheduled for february 16 as part of preop work up for hernia surgery. He is currently asymptomatic. His CBC is unremarkable sodium level of 133 potassium 5.1 his BUN is 18 creatinine 0.89 troponin level is less than 0.0120.014 and 0.016. proBNP is 1370. His lipid panel shows sugars to level of 83, cholesterol of 88, LDL 29.5 and HDL 41.80. He has been afebrile heart rate of 65 normal sinus rhythm, blood pressure 163/87 and he is 97% on room air. Losartan has been increased to 50 mg daily. 01/19/2025 Patient is seen in follow-up today and has been cleared by cardiology recommending outpatient follow-up and awaiting an echo at this time. Patient will require an event monitor on discharge and medications have been adjusted by cardiology recommending close outpatient follow-up. Patient denies any chest pain, shortness of breath, or palpitations at this time. Patient would like to go home. Please refer to cardiology consultation notes for further HPI. PHYSICAL EXAMINATION: GENERAL: The patient is alert and oriented x3, not in any acute distress. Well developed, well nourished. HEENT: Pupils are round and equally reacting to light. EOMI. No scleral icterus. No conjunctival pallor. Normocephalic, atraumatic. No pharyngeal erythema. No thyromegaly. CARDIOVASCULAR: S1 and S2 present. No murmurs, rubs, or gallops. PULMONARY: Chest is clear to auscultation, no wheezing or crackles. ABDOMEN: Soft, nontender, nondistended, normoactive bowel sounds. No palpable organomegaly. MUSCULOSKELETAL: No joint swelling or deformity. EXTREMITIES: No cyanosis, clubbing, or pedal edema. NEUROLOGICAL: Gross neurological examination did not reveal any focal deficits. SKIN: No rashes. Please refer to medication reconciliation sheet for a list of medications. The impression and plan of care has been dictated by Nicole Suárez, Nurse Practitioner as directed. Dr. Gretta MD I have performed a history and physical examination and medical decision making of this patient, discussed the same with the dictator, and agree with the dictators assessment and plan as written, documented as a scribe. Based on total visit time, I have performed more than 50% of this visit. Patient Condition at Discharge: Fair Plan - Discharge Summary Discharge Rx Participant: No New Discharge Prescriptions: New Aspirin 81 mg PO DAILY tab Losartan [Cozaar] 50 mg PO DAILY #30 tab Metoprolol Succinate (ER) [Toprol XL] 12.5 mg PO DAILY #15 tab Continue Rosuvastatin Calcium [Crestor] 20 mg PO W/SUPPER Multivitamins, Thera [Multivitamin (formulary)] 1 tab PO QAM Cholecalciferol [Vitamin D3 (25 Mcg = 1000 Iu)] 50 mcg PO QAM metFORMIN HCL [Glucophage] 500 mg PO W/SUPPER Evolocumab [Repatha Sureclick] 140 mg INJ [id number] Esomeprazole Magnesium [NexIUM 24Hr] 20 mg PO QAM Clopidogrel [Plavix] 75 mg PO QAM Potassium Chloride [Klor-Con 10 ER] 20 meq PO QAM Ferrous Sulfate [Iron (65 MG Elemental)] 162.5 mg PO DAILY Tamsulosin [Flomax] 0.4 mg PO HS Discontinued Aspirin EC [Ecotrin Low Dose] 81 mg PO W/SUPPER Metoprolol Succinate (ER) [Toprol XL] 25 mg PO DAILY Losartan [Cozaar] 25 mg PO BID-W/MEALS Discharge Medication List Cholecalciferol [Vitamin D3 (25 Mcg = 1000 Iu)] 50 mcg PO QAM 03/20/22 [History] Esomeprazole Magnesium [NexIUM 24Hr] 20 mg PO QAM 03/20/22 [History] Multivitamins, Thera [Multivitamin (formulary)] 1 tab PO QAM 03/20/22 [History] Rosuvastatin Calcium [Crestor] 20 mg PO W/SUPPER 03/20/22 [History] metFORMIN HCL [Glucophage] 500 mg PO W/SUPPER 03/20/22 [History] Clopidogrel [Plavix] 75 mg PO QAM 02/02/23 [History] Potassium Chloride [Klor-Con 10 ER] 20 meq PO QAM 04/01/24 [History] Evolocumab [Repatha Sureclick] 140 mg INJ [id number] 10/19/24 [History] Ferrous Sulfate [Iron (65 MG Elemental)] 162.5 mg PO DAILY 10/19/24 [History] Tamsulosin [Flomax] 0.4 mg PO HS 10/19/24 [History] Aspirin 81 mg PO DAILY tab 01/18/25 [Rx] Losartan [Cozaar] 50 mg PO DAILY #30 tab 01/18/25 [Rx] Metoprolol Succinate (ER) [Toprol XL] 12.5 mg PO DAILY #15 tab 01/18/25 [Rx] Follow up Appointment(s)/Referral(s): Cat Pryor DO [Primary Care Provider] - 1-2 days Activity/Diet/Wound Care/Special Instructions: Until follow-up Follow-up with your shell assembler on discharge Follow-up with primary care provider on discharge Inquire with nursing staff about looking into the portal for obtaining medical records on discharge Discharge Disposition: HOME SELF-CARE
== END 2025-01-19 14:27 | disposition home or self-care (01) ==
LOC: EC 21:11 → 6NMEDSUR 22:23 → 1SOBS 01-18 00:55
PROVIDERS: ADMIT Hospitalist; ATTEND Hospitalist
DX: R55 Syncope and collapse (principal); I71.40 Abdominal aortic aneurysm, without rupture, unspecified; E78.5 Hyperlipidemia, unspecified; I10 Essential (primary) hypertension; I25.10 Atherosclerotic heart disease of native coronary artery without angina pectoris; K21.9 Gastro-esophageal reflux disease without esophagitis; E11.51 Type 2 diabetes mellitus with diabetic peripheral angiopathy without gangrene; I25.2 Old myocardial infarction; Z11.52 Encounter for screening for COVID-19; Z95.5 Presence of coronary angioplasty implant and graft; Z79.02 Long term (current) use of antithrombotics/antiplatelets; Z79.82 Long term (current) use of aspirin; Z79.84 Long term (current) use of oral hypoglycemic drugs; Z79.899 Other long term (current) drug therapy
CPT/HCPCS: 99285; 36415; 93005; 93270; 83880; 80061; 80053; 83735; 84484 ×2; 85025; 85610; 85730; 83036; 87636; 71046; G0378 ×4; C8929; 93306